=== PATIENT | female | born 1945 | race Caucasian/White ===

== ENCOUNTER 2016-06-21 14:29 | Observation (INO) | payer MEDICARE ==
[2016-06-21] MEDS ORDERED: ASPIRIN 81 MG CHEW PO STA (15:27)
[2016-06-21] MEDS ORDERED: NITROGLYCERIN OINT 1 INCH/GM PACKET TOPICAL STA (15:27)
--- NOTE | 2016-06-21 15:48 | ED ---
Chest Pain HPI - General Chief Complaint: Chest Pain Stated Complaint: Chest Pain. Sent by Dr Thayer Seen by Provider: 06/21/16 15:16 Source: patient Mode of arrival: ambulatory - History of Present Illness Initial Comments: This 71-year-old white female says complaining of chest pain which she describes as a discomfort. It is in her left chest and has been present over the past several days.. She was seen by her family physician and received a nitroglycerin in the office and this improved her pain. It seems to be worse with exertion and better with rest. She denies any shortness of breath diaphoresis or palpitations. She denies any radiation of the pain. Her last stress test was around January 2016. She denies any history of previous myocardial infarction or heart catheterization. She relates that she has a history of atrial fibrillation but no other Cardiologic problems. It is nonpleuritic in nature. She denies any leg pain or swelling or history of DVT or PE. No other complaints or modifying factors. - Related Data Home Medications Medication Instructions Recorded Confirmed Albuterol Nebulized [Ventolin 1 dose INHALATION RT-QID PRN 09/30/13 06/21/16 Nebulized] Flecainide [Tambocor] 100 mg PO BID 09/30/13 06/21/16 Montelukast [Singulair] 10 mg PO DAILY 09/30/13 06/21/16 Rivaroxaban [Xarelto] 1 tab PO HS 09/30/13 06/21/16 levETIRAcetam [Keppra] 125 mg PO BID 09/30/13 06/21/16 ALPRAZolam [Xanax] 0.125 mg PO BID PRN 06/21/16 06/21/16 Albuterol Inhaler [Ventolin Hfa 1 - 2 puff INHALATION RT-Q6H PRN 06/21/16 Inhaler] Biotin 2.5 mg PO DAILY 06/21/16 06/21/16 Budesonide [Pulmicort] 0.25 mg INHALATION RT-BID PRN 06/21/16 06/21/16 Calcium Carbonate [Calcium] 600 mg PO DAILY 06/21/16 06/21/16 Carbidopa-Levodopa ER 25-100Mg 1 tab PO HS 06/21/16 06/21/16 [Sinemet ER 25-100] Fish Oil/Dha/Epa [Fish Oil 1,200 1 cap PO DAILY 06/21/16 06/21/16 mg Fish Oil] Fluticasone Nasal [place] [Flonase 1 spr EA NOSTRIL BID PRN 06/21/16 06/21/16 Nasal [place]] Levothyroxine Sodium [Synthroid] 100 mcg PO DAILY 06/21/16 06/21/16 Magnesium 200 mg PO DAILY 06/21/16 06/21/16 Multivitamins, Thera [Multivitamin] 1 tab PO DAILY 06/21/16 06/21/16 hydrOXYzine HCL [Atarax] 10 mg PO BID PRN 06/21/16 06/21/16 traMADol HCL [Ultram] 50 - 100 mg PO Q6H PRN 06/21/16 06/21/16 Allergies Allergy/AdvReac Type Severity Reaction Status Date / Time levofloxacin [From Levaquin] Allergy Confusion Verified 06/21/16 15:50 Review of Systems ROS Statement: Those systems with pertinent positive or pertinent negative responses have been documented in the HPI. ROS Other: All systems not noted in ROS Statement are negative. Past Medical History Past Medical History: Atrial Fibrillation, Asthma, COPD, Thyroid Disorder Additional Past Medical History / Comment(s): osteopenia, brain tumor which was removed History of Any Multi-Drug Resistant Organisms: None Reported Past Surgical History: Cardiac Ablation Additional Past Surgical History / Comment(s): Cardiac AblationX2, Brain tumor removal, cataract Past Anesthesia/Blood Transfusion Reactions: Unable to Obtain Past Psychological History: Anxiety Smoking Status: Never smoker Past Alcohol Use History: None Reported Past Drug Use History: None Reported - Past Family History Father Brother(s) Family Medical History: Blood Disorder, COPD General Exam - General Exam Comments Initial Comments: GENERAL: The patient is well nourished and well hydrated. VITAL SIGNS: Heart rate, blood pressure, respiratory rate reviewed as recorded in nurse's notes. EYES: Pupils are round and reactive. Extraocular movements are intact. No conjunctival / lid redness or swelling. ENT: No external evidence of injury, swelling, or ecchymosis. Airway is patent. Throat is clear. NECK: Nontender. No swelling or evidence of injury. No subcutaneous emphysema. Trachea is midline. No thyroid mass. HEART: Regular rate and rhythm. Good peripheral pulses. LUNGS/CHEST: Breath sounds clear and equal bilaterally. No rales, rhonchi, or wheezes. No ecchymosis, subcutaneous emphysema, or tenderness. ABDOMEN: Abdomen soft without tenderness. No palpable masses or organomegaly. No peritoneal signs. No abdominal wall swelling or ecchymosis. EXTREMITIES: No extremity tenderness. Normal muscle tone and function. No thoracolumbar tenderness. NEUROLOGIC: Sensation is grossly intact. Cranial nerve exam reveals face is symmetrical, tongue is midline, speech is clear. SKIN: No abrasions or ecchymosis is noted. No induration or masses noted. PSYCHIATRIC: Alert and oriented. Appropriate behavior and judgment. Course Vital Signs 06/21/16 06/21/16 14:44 17:14 Temperature 98 F Pulse Rate 71 59 L Respiratory 18 18 Rate Blood Pressure 134/71 125/68 O2 Sat by Pulse 99 99 Oximetry Chest Pain MDM - MDM The patient was seen and examined. All diagnostics were reviewed. The EKG shows a normal sinus rhythm with first-degree AV block. There is no acute ST-T wave changes noted. The AL interval is 220, QS duration is 98, and QTc interval is 428. The laboratory was fairly unremarkable. The chest x-ray showed signs of COPD and some upper lobe scarring which is somewhat worse as compared to 2014. She is in no distress on recheck. The possibility of acute coronary syndrome certainly is possible and it is felt as though she would benefit from admission. Case will be discussed with internal medicine in the near future. Disposition Clinical Impression: Chest pain, Unstable angina Disposition: ADMITTED IP TO THIS [facility] Condition: Fair Time of Disposition: 17:43 Decision Date: 06/21/16 Decision Time: 17:43
[2016-06-21 15:51] LABS: Basophils % (A) 1 %; CH 31.8; CHCM 33.1; Eosinophils # (A) 0.1 k/uL (0-0.7); Eosinophils % (A) 2 %; HCT 38.5 % (34.0-46.0); HDW 2.28; HGB 12.6 gm/dL (11.4-16.0); Luc # (Auto) 0.14; Luc % (Auto) 3; Lymphocytes # (A) 1.2 k/uL (1.0-4.8); Lymphocytes % (A) 25 %; MCH 31.7 pg (25.0-35.0); MCHC 32.8 g/dL (31.0-37.0); MCV 96.6 fL (80.0-100.0); Mean Platelet Volume 7.3; Monocytes # (A) 0.4 k/uL (0-1.0); Monocytes % (A) 9 %; Neutrophils # (A) 2.8 k/uL (1.3-7.7); Neutrophils % (A) 61 %; RBC 3.99 m/uL (3.80-5.40); RDW 14.3 % (11.5-15.5); WBC 4.7 k/uL (3.8-10.6); WBC (Perox) 4.84
[2016-06-21 16:03] LABS: ALT 23 U/L (9-52); AST 36 U/L (14-36); Alkaline Phosphatase 79 U/L (38-126); Anion Gap 9 mmol/L; Blood Urea Nitrogen 19 mg/dL (7-17); Calcium 8.9 mg/dL (8.4-10.2); Carbon Dioxide 27 mmol/L (22-30); Chloride 100 mmol/L (98-107); Glucose 77 mg/dL (74-99); Magnesium 1.8 mg/dL (1.6-2.3); Non-African American GFR(MDRD) >60 (>60 ml/min/1.73 sqM); Sodium 136 mmol/L (137-145); Total Bilirubin 0.8 mg/dL (0.2-1.3); Total Protein 6.4 g/dL (6.3-8.2)
[2016-06-21 16:07] LABS: INR 1.1 (<1.1); Partial Thromboplastin Time 28.6 sec (22.0-30.0); Prothrombin Time 11.4 sec (9.0-12.0)
[2016-06-21 16:10] LABS: Creatine Kinase 95 U/L (30-135)
--- NOTE | 2016-06-21 16:10 | XR ---
EXAMINATION TYPE: XR chest 2V DATE OF EXAM: 06/21/2016 4:04 PM COMPARISON: 09/30/2013 HISTORY: 71-year-old female with chest pain TECHNIQUE: PA and lateral views FINDINGS: Heart is normal size. Aorta and pulmonary vasculature within normal limits. There is hyperinflation w ith flattening of the hemidiaphragms and diffuse interstitial opacities. Biapical pleural-parenchymal scarring is present. Densities in the apices have increased from prior. Blunting of the costophrenic angles probably relates to pleural parenchymal scarring. IMPRESSION: COPD with increased upper lung densities probably increasing pleural parenchymal scarring compared to 2013; unlikely early infiltrates in the absence of any infectious signs/symptoms.
[2016-06-21 16:23] LABS: Troponin I <0.012 ng/mL (0.000-0.034)
[2016-06-21] MEDS ORDERED: NITROGLYCERIN SL TABS 0.4 MG TAB SUBLINGUAL PRN (17:48)
[2016-06-21] MEDS ORDERED: FLUTICASONE 50MCG/SPRAY NASAL 16GM EA NOSTRIL PRN (17:49)
[2016-06-21] MEDS ORDERED: BUDESONIDE 0.25 MG/2 ML NEBU INHALATION PRN (17:49)
[2016-06-21] MEDS ORDERED: traMADol 50 MG TAB PO PRN (17:49)
[2016-06-21] MEDS ORDERED: ALPRAZolam 0.25 MG TAB PO PRN (17:49)
[2016-06-21] MEDS ORDERED: hydrOXYzine HCL 10 MG TAB PO PRN (17:49)
[2016-06-21] MEDS ORDERED: ALBUTEROL INHALER 60 PUFF/8 GM INHALER INHALATION PRN (17:49)
[2016-06-21] MEDS: CARBIDOPA-LEVODOPA ER 25-100MG 1 EACH TABLET.ER PO SCH (20:51)
[2016-06-21] MEDS: FLECAINIDE 50 MG TAB PO SCH (20:51)
[2016-06-21] MEDS: levETIRAcetam 250 MG TAB PO SCH (20:52)
[2016-06-21] MEDS: RIVAROXABAN 10 MG TAB PO SCH (22:04)
[2016-06-21 22:42] LABS: Creatine Kinase 81 U/L (30-135)
[2016-06-21 22:55] LABS: Creatine Kinase MB 1.3 ng/mL (0.0-2.4); Troponin I <0.012 ng/mL (0.000-0.034)
[2016-06-22 02:16] VITALS: BMI 25.0
[2016-06-22] MEDS: NITROGLYCERIN OINT 1 INCH/GM PACKET TOPICAL SCH ×4 (02:51→20:04)
[2016-06-22 03:17] LABS: Cholesterol 160 mg/dL (<200); HDL Cholesterol 63 mg/dL (40-60); Triglycerides 41 mg/dL (<150)
[2016-06-22 03:23] LABS: Creatine Kinase 77 U/L (30-135)
[2016-06-22 03:36] LABS: Creatine Kinase MB 1.1 ng/mL (0.0-2.4); Troponin I <0.012 ng/mL (0.000-0.034)
[2016-06-22] MEDS: LEVOTHYROXINE 100 MCG TAB PO SCH (06:31)
[2016-06-22] MEDS: ALBUTEROL NEBULIZED 2.5 MG/3 ML INHALATION PRN ×2 (08:46→17:08)
[2016-06-22] MEDS ORDERED: BIOTIN 2.5 MG PO SCH (09:00)
[2016-06-22] MEDS ORDERED: NON-FORMULARY DRUG (Fish Oil/Dha/Epa [Fish Oil 1,200 Mg Fish Oil] 1 CAP) PO SCH (09:00)
[2016-06-22] MEDS: levETIRAcetam 250 MG TAB PO SCH ×2 (09:58→20:52)
[2016-06-22] MEDS: ASPIRIN 325 MG TAB PO SCH (09:58)
[2016-06-22] MEDS: MONTELUKAST 10 MG TAB PO SCH (09:58)
--- NOTE | 2016-06-22 10:34 | ECHOF ---
Referral Reason:cp MEASUREMENTS -------- HEIGHT: 172.7 cm WEIGHT: 74.8 kg BP: 131/63 RVIDd: 2.4 cm (< 3.3) IVSd: 1.1 cm (0.6 - 1.1) LVIDd: 3.9 cm (3.9 - 5.3) LVPWd: 1.1 cm (0.6 - 1.1) IVSs: 1.5 cm LVIDs: 2.8 cm LVPWs: 1.6 cm LA Diam: 3.4 cm (2.7 - 3.8) LAESV Index (A-L): 34.30 ml/m Ao Diam: 3.6 cm (2.0 - 3.7) AV Cusp: 2.2 cm (1.5 - 2.6) LA Diam: 3.2 cm (2.7 - 3.8) MV EXCURSION: 21.150 mm (> 18.000) MV EF SLOPE: 70 mm/s (70 - 150) EPSS: 0.4 cm MV E Jonh: 1.00 m/s MV DecT: 288 ms MV A John: 0.68 m/s MV E/A Ratio: 1.47 FINDINGS -------- Sinus rhythm. This was a technically good study. The left ventricular size is normal. Left ventricular wall thickness is normal. Overall left ventricular systolic function is normal with, an EF between 60 - 65 %. The right ventricle is normal in size and function. LA is moderately dilated 34-39 ml/m2 The right atrium is normal in size. The aortic valve is trileaflet and appears structurally normal. Normal appearing mitral valve. No mitral regurgitation. The tricuspid valve appears structurally normal. No regurgitation noted The pulmonic valve is normal. There is no pulmonic regurgitation present. The aortic root size is normal. Normal inferior vena cava with normal inspiratory collapse consistent with estimated right atrial pressure of 5 mmHg. The pericardium is normal. CONCLUSIONS -------- 1. Sinus rhythm. 2. Normal appearing mitral valve. 3. The tricuspid valve appears structurally normal. 4. The pulmonic valve is normal. 5. The aortic root size is normal. 6. Normal inferior vena cava with normal inspiratory collapse consistent with estimated right atrial pressure of 5 mmHg. 7. The pericardium is normal. 8. This was a technically good study. 9. The left ventricular size is normal. 10. Left ventricular wall thickness is normal. 11. Overall left ventricular systolic function is normal with, an EF between 60 - 65 %. 12. The right ventricle is normal in size and function. 13. LA is moderately dilated 34-39 ml/m2 14. The right atrium is normal in size. 15. The aortic valve is trileaflet and appears structurally normal. [employer] SUPERVISOR: Zoya Medellin RDCS
[2016-06-22 11:30] VITALS: RESP 16
[2016-06-22] MEDS ORDERED: MAGNESIUM OXIDE 250 MG TAB PO SCH (12:00)
[2016-06-22] MEDS ORDERED: CALCIUM CARBONATE 500 MG CHEWABLE PO SCH (12:00)
[2016-06-22] MEDS ORDERED: MULTIVITAMINS, THERA 1 EACH TAB PO SCH (12:00)
--- NOTE | 2016-06-22 12:04 | P.HPIM ---
History of Present Illness H&P Date: 06/22/16 Chief Complaint: Chest pain This 71-year-old white female presented complaining of chest pain which she describes as a discomfort. It is in her left chest and has been present over the past several days.. She was seen by her family physician and received a nitroglycerin in the office and this improved her pain. It seems to be worse with exertion and better with rest. She denies any shortness of breath diaphoresis or palpitations. She denies any radiation of the pain. Her last stress test was around January 2016. She denies any history of previous myocardial infarction or heart catheterization. She relates that she has a history of atrial fibrillation but no other Cardiologic problems. It is nonpleuritic in nature. She denies any leg pain or swelling or history of DVT or PE. No other complaints or modifying factors. Review of Systems Review of system: 14 points review of systems were obtained and were negative except to what were mentioned in the HPI. Past Medical History Past Medical History: Atrial Fibrillation, Asthma, COPD, Thyroid Disorder Additional Past Medical History / Comment(s): osteopenia, brain tumor which was removed History of Any Multi-Drug Resistant Organisms: None Reported Past Surgical History: Cardiac Ablation Additional Past Surgical History / Comment(s): Cardiac AblationX2, Brain tumor removal, cataract Past Anesthesia/Blood Transfusion Reactions: Unable to Obtain Past Psychological History: Anxiety Smoking Status: Never smoker Past Alcohol Use History: None Reported Past Drug Use History: None Reported - Past Family History Father Brother(s) Family Medical History: Blood Disorder, COPD Medications and Allergies Home Medications Medication Instructions Recorded Confirmed Type Albuterol Nebulized [Ventolin 1 dose INHALATION RT-QID PRN 09/30/13 06/21/16 History Nebulized] Flecainide [Tambocor] 100 mg PO BID 09/30/13 06/21/16 History Montelukast [Singulair] 10 mg PO DAILY 09/30/13 06/21/16 History Rivaroxaban [Xarelto] 20 mg PO HS 09/30/13 06/21/16 History levETIRAcetam [Keppra] 125 mg PO BID 09/30/13 06/21/16 History ALPRAZolam [Xanax] 0.125 mg PO BID PRN 06/21/16 06/21/16 History Albuterol Inhaler [Ventolin Hfa 1 - 2 puff INHALATION RT-Q6H PRN 06/21/16 History Inhaler] Biotin 2.5 mg PO DAILY 06/21/16 06/21/16 History Budesonide [Pulmicort] 0.25 mg INHALATION RT-BID PRN 06/21/16 06/21/16 History Calcium Carbonate [Calcium] 600 mg PO DAILY 06/21/16 06/21/16 History Carbidopa-Levodopa ER 25-100Mg 1 tab PO HS 06/21/16 06/21/16 History [Sinemet ER 25-100] Fish Oil/Dha/Epa [Fish Oil 1,200 1 cap PO DAILY 06/21/16 06/21/16 History mg Fish Oil] Fluticasone Nasal [place] [Flonase 1 spr EA NOSTRIL BID PRN 06/21/16 06/21/16 History Nasal [place]] Levothyroxine Sodium [Synthroid] 100 mcg PO DAILY 06/21/16 06/21/16 History Magnesium 200 mg PO DAILY 06/21/16 06/21/16 History Multivitamins, Thera [Multivitamin] 1 tab PO DAILY 06/21/16 06/21/16 History hydrOXYzine HCL [Atarax] 10 mg PO BID PRN 06/21/16 06/21/16 History traMADol HCL [Ultram] 50 - 100 mg PO Q6H PRN 06/21/16 06/21/16 History Allergies Allergy/AdvReac Type Severity Reaction Status Date / Time levofloxacin [From [facility]] Allergy Confusion Verified 06/21/16 15:50 Physical Exam Vitals: Vital Signs Temp Pulse Pulse Resp BP BP Pulse Ox 06/22/16 11:29 97.9 F 63 16 109/46 96 06/22/16 09:00 64 06/22/16 08:48 64 14 06/22/16 07:42 98.1 F 63 16 116/49 96 06/22/16 04:15 98.1 F 64 16 131/63 98 06/22/16 04:00 59 L 16 06/22/16 00:01 98.0 F 61 16 134/63 98 06/22/16 00:00 60 16 06/21/16 21:30 97.7 F 88 16 127/60 96 06/21/16 20:48 98.4 F 60 18 109/60 100 06/21/16 19:30 70 16 06/21/16 19:06 60 18 125/66 99 Intake and Output 06/21/16 06/22/16 06/22/16 22:59 06:59 14:59 Other: # Voids 1 Weight 74.843 kg General: The patient is awake and alert, in no distress, and does not appear acutely ill. Eye: extra-ocular movements are intact; there is normal conjunctiva bilaterally. . Neck: The neck is supple, there is no tenderness or JVD. Cardiovascular: Normal S1-S2, no S3-S4, no murmurs. Respiratory: Lungs clear to auscultation bilaterally with no wheezes rhonchi or rales. Gastrointestinal: Abdomen is soft, nontender, nondistended, with no organomegaly. . Musculoskeletal: Normal ROM, no tenderness, There is no pedal edema. Neurological: There are no obvious motor or sensory deficits. Speech is normal. Skin: Skin is warm and dry and no rashes or lesions are noted. Results CBC & Chem 7: 06/21/16 15:20 06/21/16 15:20 Labs: Abnormal Lab Results - Last 24 Hours (Table) 06/22/16 Range/Units 02:34 HDL Cholesterol 63 H (40-60) mg/dL Thrombosis Risk Factor Assmnt - Choose All That Apply Each Risk Factor Represents 2 Points: Age 61-74 years Thrombosis Risk Factor Assessment Total Risk Factor Score: 2 Thrombosis Risk Factor Assessment Level: Low Risk Assessment and Plan Plan: 1. Chest pain: Most atypical in nature. Pain was reproducible on exam. Twelve -lead EKG showed no acute ischemic changes in the emergency room. Serial troponin are negative 3 sets. Awaiting cardiology evaluation and recommendations. 2. Paroxysmal atrial fibrillation with history of ablation. On anticoagulation with Rivaroxaban 3. Underlying COPD with no evidence of exacerbation 4. Hypothyroidism maintained on Synthroid 5. Seizure disorder: With no recent seizures reported We'll continue telemetry monitoring. Awaiting cardiology evaluation.
[2016-06-22] MEDS: FLECAINIDE 50 MG TAB PO SCH ×2 (12:44→20:52)
--- NOTE | 2016-06-22 13:46 | CONS ---
DATE OF CONSULTATION: Xochitl Nunez is a 71-year-old female who presented with discomfort in the left pectoral area. She is complaining of tenderness here. She denied any palpitations, dizziness, lightheadedness or loss of consciousness. Past history of atrial fibrillation, status post ablation. She is on flecainide 100 mg twice daily. She is should also appropriately anticoagulated. She also has COPD and hypothyroidism. REVIEW OF SYSTEMS: No fever, chills, rigors. No cough or expectoration. No nausea, vomiting or diarrhea. No hematuria or dysuria. No strokes or seizures. No skin lesions or musculoskeletal complaints. PAST SURGICAL HISTORY: Catheter ablation, brain tumor removal. Her medications have been documented in the chart. Allergies documented in the chart. On examination, her blood pressure is normal at 127/60 mmHg, pulse rate is in the 80s. Head and neck examination is normal. Heart sounds are normal. The lungs are clear to auscultation. Extremities are warm. No edema. She has tenderness over the costochondral margins. The costochondral margin is quite exquisite, the pain also gets worse when she takes a deep breath. She denies any fever, chills, cough or any pulmonary symptoms. IMPRESSION: 1. Musculoskeletal chest discomfort. 2. History of paroxysmal atrial fibrillation. 3. Hypothyroidism. SUGGEST: From a cardiac standpoint, she can go home. A 2-D echo shows preserved LV systolic function and it was normal in the past, too. I will see her in the office as scheduled.
[2016-06-22] MEDS ORDERED: ACETAMINOPHEN TAB 325 MG TAB PO PRN (17:32)
[2016-06-22] MEDS: RIVAROXABAN 10 MG TAB PO SCH ×2 (20:52→20:56)
[2016-06-23] MEDS: CARBIDOPA-LEVODOPA ER 25-100MG 1 EACH TABLET.ER PO SCH (01:29)
[2016-06-23] MEDS: NITROGLYCERIN OINT 1 INCH/GM PACKET TOPICAL SCH ×2 (01:30→06:34)
[2016-06-23] MEDS: ASPIRIN 325 MG TAB PO SCH (06:34)
[2016-06-23] MEDS: LEVOTHYROXINE 100 MCG TAB PO SCH (06:34)
[2016-06-23] MEDS: ALBUTEROL NEBULIZED 2.5 MG/3 ML INHALATION PRN (07:30)
[2016-06-23 07:40] LABS: Basophils % (A) 0 %; CH 31.8; Eosinophils # (A) 0.1 k/uL (0-0.7); Eosinophils % (A) 2 %; HCT 41.1 % (34.0-46.0); HDW 2.26; HGB 13.4 gm/dL (11.4-16.0); Luc # (Auto) 0.12; Luc % (Auto) 3; Lymphocytes # (A) 1.3 k/uL (1.0-4.8); Lymphocytes % (A) 26 %; MCH 31.7 pg (25.0-35.0); MCHC 32.8 g/dL (31.0-37.0); MCV 96.8 fL (80.0-100.0); Monocytes # (A) 0.4 k/uL (0-1.0); Monocytes % (A) 9 %; Neutrophils % (A) 60 %; RBC 4.24 m/uL (3.80-5.40); RDW 14.2 % (11.5-15.5); WBC 4.9 k/uL (3.8-10.6); WBC (Perox) 4.85
[2016-06-23 07:53] LABS: Anion Gap 8 mmol/L; Blood Urea Nitrogen 20 mg/dL (7-17); Calcium 9.1 mg/dL (8.4-10.2); Carbon Dioxide 30 mmol/L (22-30); Chloride 95 mmol/L (98-107); Glucose 76 mg/dL (74-99); Non-African American GFR(MDRD) 59 (>60 ml/min/1.73 sqM); Potassium 4.3 mmol/L (3.5-5.1); Sodium 133 mmol/L (137-145)
[2016-06-23] MEDS: levETIRAcetam 250 MG TAB PO SCH (08:26)
[2016-06-23] MEDS: MONTELUKAST 10 MG TAB PO SCH (08:26)
[2016-06-23] MEDS: FLECAINIDE 50 MG TAB PO SCH (08:26)
[2016-06-23 08:41] VITALS: BP 113/55; TEMP 98.1
[2016-06-23 08:52] VITALS: PULSE 69
--- NOTE | 2016-06-23 10:57 | P.DS ---
Providers Date of admission: 06/21/16 17:48 Expected date of discharge: 06/23/16 Attending physician: Yvonne Pascual Consults: Dr. Beltran Primary care physician: Zoila Bansal Hospital Course: Discharge diagnosis 1. Chest pain: Most atypical in nature. Pain was reproducible on exam. Twelve -lead EKG showed no acute ischemic changes in the emergency room. Serial troponin are negative 3 sets. DC ruled out. Chest pain secondary to costochondritis. Symptoms have improved 2. Paroxysmal atrial fibrillation with history of ablation. On anticoagulation with Rivaroxaban 3. Underlying COPD with no evidence of exacerbation 4. Hypothyroidism maintained on Synthroid 5. Seizure disorder: With no recent seizures reported Hospital course This 71-year-old white female presented complaining of chest pain which she describes as a discomfort. It is in her left chest and has been present over the past several days.. She was seen by her family physician and received a nitroglycerin in the office and this improved her pain. It seems to be worse with exertion and better with rest. She denies any shortness of breath diaphoresis or palpitations. She denies any radiation of the pain. Her last stress test was around January 2016. Patient was seen evaluated by cardiology. They felt that her chest pain was more musculoskeletal in nature. 2-D echo showed a preserved LV systolic function. They have cleared her for discharge. Patient will follow-up as scheduled with cardiology in the office. Also follow-up with PCP in 1 week. Patient's pain has resolved. And she's been educated to take Motrin [id number] if pain restarts. At this time patient did not want any pain medication. Patient Condition at Discharge: Stable Plan - Discharge Summary Discharge Medication List Albuterol Nebulized [Ventolin Nebulized] 1 dose INHALATION RT-QID PRN 09/30/13 [ History] Flecainide [Tambocor] 100 mg PO BID 09/30/13 [History] Montelukast [Singulair] 10 mg PO DAILY 09/30/13 [History] Rivaroxaban [Xarelto] 20 mg PO HS 09/30/13 [History] levETIRAcetam [Keppra] 125 mg PO BID 09/30/13 [History] ALPRAZolam [Xanax] 0.125 mg PO BID PRN 06/21/16 [History] Albuterol Inhaler [Ventolin Hfa Inhaler] 1 - 2 puff INHALATION RT-Q6H PRN [History] Biotin 2.5 mg PO DAILY 06/21/16 [History] Budesonide [Pulmicort] 0.25 mg INHALATION RT-BID PRN 06/21/16 [History] Calcium Carbonate [Calcium] 600 mg PO DAILY 06/21/16 [History] Carbidopa-Levodopa ER 25-100Mg [Sinemet CR 25-100 mg] 1 tab PO HS 06/21/16 [ History] Fish Oil/Dha/Epa [Fish Oil 1,200 mg Fish Oil] 1 cap PO DAILY 06/21/16 [History] Fluticasone Nasal [place] [Flonase Nasal [place]] 1 spr EA NOSTRIL BID PRN 06/21/16 [History] Levothyroxine Sodium [Synthroid] 100 mcg PO DAILY 06/21/16 [History] Magnesium 200 mg PO DAILY 06/21/16 [History] Multivitamins, Thera [Multivitamin] 1 tab PO DAILY 06/21/16 [History] hydrOXYzine HCL [Atarax] 10 mg PO BID PRN 06/21/16 [History] traMADol HCL [Ultram] 50 - 100 mg PO Q6H PRN 06/21/16 [History] Follow up Appointment(s)/Referral(s): Zoila Bansal MD [Primary Care Provider] - 1 Week Activity/Diet/Wound Care/Special Instructions: pt may go home an keep her scheduled appointment with me f/u with pcp as scheduled Diet:regular Activity: as tolerated Discharge Disposition: HOME SELF-CARE
== END 2016-06-23 11:52 | disposition home or self-care (01) ==
LOC: EC 14:29 → 3OBS 17:48
PROVIDERS: ADMIT Internal Medicine; ATTEND Internal Medicine
DX: M94.0 Chondrocostal junction syndrome [Tietze] (principal); I48.0 Paroxysmal atrial fibrillation; J44.9 Chronic obstructive pulmonary disease, unspecified; J45.909 Unspecified asthma, uncomplicated; E03.9 Hypothyroidism, unspecified; G40.909 Epilepsy, unspecified, not intractable, without status epilepticus; M85.80 Other specified disorders of bone density and structure, unspecified site; F41.9 Anxiety disorder, unspecified; Z79.01 Long term (current) use of anticoagulants; Z79.899 Other long term (current) drug therapy; Z88.1 Allergy status to other antibiotic agents; Z82.5 Family history of asthma and other chronic lower respiratory diseases
CPT/HCPCS: 36415; 94640 ×3; 94760; 93005; 93306; 80061; 80053; 80048; 82550 ×2; 82553 ×2; 83735; 84484 ×2; 85025 ×2; 85610; 85730; 71020; 99285; G0378 ×3

== ENCOUNTER → 2016-11-17 | Outpatient (CLI) | payer MEDICARE ==
[2016-11-17 08:13] LABS: Blood Urea Nitrogen 18 mg/dL (7-17); Non-African American GFR(MDRD) >60 (>60 ml/min/1.73 sqM)
--- NOTE | 2016-11-17 10:10 | MR ---
EXAMINATION TYPE: MR pituitary wo/w con DATE OF EXAM: 11/17/2016 COMPARISON: MRI pituitary gland 07/17/2014 HISTORY: Benign neoplasm of Pituitary gland, F/U from prior Pituitary tumor, No symptoms TECHNIQUE: Multiplanar, multisequence images of the brain and brainstem is performed without and with IV contras t, utilizing 15 mL intravenous MultiHance . Pituitary gland protocol FINDINGS: There is redemonstration of enhancing pituitary stalk extending to left of midline as it de scends. Heterogeneous enhancement at level of the sella turcica remains present. No new mass or areas of nonenhancement are identified. Suprasellar cistern is maintained. Optic chiasm is not effaced. Craniocervical junction appears within normal limits. Visualized portion of brain parenchyma is unrem arkable without hydrocephalus. No suspicious enhancement is seen. Visualized sinuses are grossly olga r. IMPRESSION: Overall stable findings, no new mass or area of nonenhancement identified.
== END | disposition home or self-care (01) ==
LOC: RADMRIMAIN 07:39
PROVIDERS: ATTEND Neurological Surgery
DX: D35.2 Benign neoplasm of pituitary gland (principal)
CPT/HCPCS: 82565; 84520; 70553; A9577

== ENCOUNTER 2017-01-23 03:29 | Observation (INO) | payer MEDICARE ==
--- NOTE | 2017-01-23 03:45 | ED ---
Chest Pain HPI - General Chief Complaint: Chest Pain Stated Complaint: chest pain Time Seen by Provider: 01/23/17 03:31 Source: EMS Mode of arrival: EMS Limitations: no limitations - History of Present Illness Initial Comments: This patient is a 71-year-old woman who presents to be evaluated for an episode of chest pain. She states that started around 8 while she was sitting. The pain was across the upper chest and left chest. She states that it lasts until about 1. She noted however that she was becoming very anxious and phone EMS. She states that it was a heavy or tight feeling. She did not note any worsening or relieving factors. She did have some shortness of breath and diaphoresis associated. She was having dry heaves as well. She states that all the symptoms have resolved now. MD Complaint: chest pain -: hour(s) Onset: during rest Pain Location: substernal, left chest Pain Radiation: none Severity: moderate Quality: tightness Consistency: now resolved Improves With: nothing Worsens With: nothing Anginal Symptoms: nausea, diaphoresis Treatments Prior to Arrival: none - Related Data Home Medications Medication Instructions Recorded Confirmed Albuterol Nebulized [Ventolin 1 dose INHALATION RT-QID PRN 09/30/13 06/21/16 Nebulized] Flecainide [Tambocor] 100 mg PO BID 09/30/13 06/21/16 Montelukast [Singulair] 10 mg PO DAILY 09/30/13 06/21/16 Rivaroxaban [Xarelto] 20 mg PO 09/30/13 06/21/16 levETIRAcetam [Keppra] 125 mg PO BID 09/30/13 06/21/16 ALPRAZolam [Xanax] 0.125 mg PO BID PRN 06/21/16 06/21/16 Albuterol Inhaler [Ventolin Hfa 1 - 2 puff INHALATION RT-Q6H PRN 06/21/16 Inhaler] Biotin 2.5 mg PO DAILY 06/21/16 06/21/16 Budesonide [Pulmicort] 0.25 mg INHALATION RT-BID PRN 06/21/16 06/21/16 Calcium Carbonate [Calcium] 600 mg PO DAILY 06/21/16 06/21/16 Carbidopa-Levodopa ER 25-100Mg 1 tab PO HS 06/21/16 06/21/16 [Sinemet CR 25-100 mg] Fish Oil/Dha/Epa [Fish Oil 1,200 1 cap PO DAILY 06/21/16 06/21/16 mg Fish Oil] Fluticasone Nasal [place] [Flonase 1 spr EA NOSTRIL BID PRN 06/21/16 06/21/16 Nasal [place]] Levothyroxine Sodium [Synthroid] 100 mcg PO DAILY 06/21/16 06/21/16 Magnesium 200 mg PO DAILY 06/21/16 06/21/16 Multivitamins, Thera [Multivitamin 1 tab PO DAILY 06/21/16 06/21/16 (formulary)] hydrOXYzine HCL [Atarax] 10 mg PO BID PRN 06/21/16 06/21/16 traMADol HCL [Ultram] 50 - 100 mg PO Q6H PRN 06/21/16 06/21/16 Allergies Allergy/AdvReac Type Severity Reaction Status Date / Time levofloxacin [From Levaquin] Allergy Confusion Verified 06/21/16 15:50 Review of Systems ROS Statement: Those systems with pertinent positive or pertinent negative responses have been documented in the HPI. ROS Other: All systems not noted in ROS Statement are negative. Constitutional: Denies: fever, chills Respiratory: Reports: dyspnea. Denies: cough, wheezes Cardiovascular: Reports: chest pain. Denies: palpitations, orthopnea, edema, syncope Gastrointestinal: Reports: nausea. Denies: abdominal pain, vomiting, diarrhea, constipation Genitourinary: Denies: dysuria, hematuria Musculoskeletal: Denies: back pain Skin: Denies: rash Neurological: Denies: headache, weakness, numbness Psychiatric: Reports: anxiety EKG Findings - EKG Results: EKG: interpreted by ERMD, sinus rhythm (Rate 69 bpm), normal axis, normal QRS, normal ST/T, no acute changes - Blocks, [place], Hypertrophy, ST Abn: AV and intraventricular conduction: 1 AV block Past Medical History Past Medical History: Atrial Fibrillation, Asthma, COPD, Thyroid Disorder Additional Past Medical History / Comment(s): osteopenia, brain tumor which was removed, hep A at age 15 History of Any Multi-Drug Resistant Organisms: None Reported Past Surgical History: Cardiac Ablation Additional Past Surgical History / Comment(s): Cardiac AblationX2, Brain tumor removal, cataract Past Anesthesia/Blood Transfusion Reactions: Unable to Obtain Past Psychological History: Anxiety Smoking Status: Never smoker Past Alcohol Use History: None Reported Past Drug Use History: None Reported - Past Family History Father Brother(s) Family Medical History: Blood Disorder, COPD General Exam Limitations: no limitations General appearance: alert, in no apparent distress Head exam: Present: atraumatic, normocephalic Eye exam: Present: normal appearance. Absent: scleral icterus, conjunctival injection Respiratory exam: Present: normal lung sounds bilaterally. Absent: respiratory distress, wheezes, rales, rhonchi, stridor Cardiovascular Exam: Present: regular rate, normal rhythm, normal heart sounds. Absent: systolic murmur, diastolic murmur, rubs, gallop GI/Abdominal exam: Present: soft. Absent: distended, tenderness, guarding, rebound Extremities exam: Present: normal inspection, normal capillary refill. Absent: pedal edema, calf tenderness Back exam: Present: normal inspection. Absent: CVA tenderness (R), CVA tenderness (L) Neurological exam: Present: alert Skin exam: Present: warm, dry, intact, normal color. Absent: rash Course Vital Signs 01/23/17 01/23/17 03:30 04:34 Temperature 98.4 F Pulse Rate 71 64 Respiratory 16 17 Rate Blood Pressure 149/69 136/62 O2 Sat by Pulse 99 100 Oximetry Chest Pain MDM - MDM This patient is 71-year-old woman presenting with chest pain, the initial workup is negative. D-dimer is borderline but negative by the age adjusted criteria. Case discussed with Dr. Ricketts, who is covering tonight and will admit for serial cardiac enzymes, telemetry monitoring. She remains asymptomatic Disposition Clinical Impression: Chest pain Disposition: ADMITTED IP TO THIS HOSP Condition: Fair Referrals: Zoila Bansal MD [Primary Care Provider] - 1-2 days
[2017-01-23 03:58] LABS: Aty Lym Flag Slight; CH 30.8; CHCM 33.6; HCT 35.1 % (34.0-46.0); HGB 11.8 gm/dL (11.4-16.0); MCHC 33.7 g/dL (31.0-37.0); Mean Platelet Volume 7.7; RBC 3.81 m/uL (3.80-5.40); RDW 13.7 % (11.5-15.5); WBC 5.1 k/uL (3.8-10.6); WBC (Perox) 5.07
[2017-01-23 04:10] LABS: ALT 23 U/L (9-52); AST 31 U/L (14-36); Alkaline Phosphatase 108 U/L (38-126); Anion Gap 9 mmol/L; Blood Urea Nitrogen 19 mg/dL (7-17); Calcium 8.8 mg/dL (8.4-10.2); Carbon Dioxide 25 mmol/L (22-30); Chloride 98 mmol/L (98-107); Glucose 84 mg/dL (74-99); Magnesium 1.9 mg/dL (1.6-2.3); Non-African American GFR(MDRD) >60 (>60 ml/min/1.73 sqM); Potassium 4.2 mmol/L (3.5-5.1); Sodium 132 mmol/L (137-145); Total Bilirubin 0.5 mg/dL (0.2-1.3); Total Protein 5.8 g/dL (6.3-8.2)
[2017-01-23 04:12] LABS: Add Differential Manual Differential
[2017-01-23 04:13] LABS: INR 1.5 (<1.2); Prothrombin Time 14.2 sec (9.0-12.0)
[2017-01-23 04:14] LABS: Creatine Kinase 98 U/L (30-135)
[2017-01-23 04:15] LABS: Band Neutrophils % 1 %; Nucleated Red Blood Cells 0 /100 WBC (0-0); Total Cells Counted 100
[2017-01-23 04:16] LABS: Manual Review Performed
--- NOTE | 2017-01-23 04:17 | XR ---
EXAM: XR Chest, 1 View CLINICAL HISTORY: Reason: chest pain TECHNIQUE: Frontal view of the chest. COMPARISON: 06/21/16 FINDINGS: Lungs: Coarse increased interstitial markings, unchanged likely chronic. No new dense consolidation. Pleural space: Biapical pleural thickening, unchanged. Blunting of the costophrenic angles, chronic No pneumothorax. Heart: Heart size is stable and within normal limits. Mediastinum: Unremarkable. Bones/joints: Unremarkable. Vasculature: Calcified thoracic aorta, unchanged. IMPRESSION: 1. Stable findings as described likely chronic. 2. No focal new consolidation. 3. Consider further evaluation with high-resolution chest CT as indicated
[2017-01-23 04:28] LABS: Creatine Kinase MB 1.9 ng/mL (0.0-2.4); Troponin I <0.012 ng/mL (0.000-0.034)
[2017-01-23] MEDS ORDERED: NITROGLYCERIN SL TABS 0.4 MG TAB SUBLINGUAL PRN (05:19)
[2017-01-23] MEDS ORDERED: ALPRAZolam 0.25 MG TAB PO PRN (05:21)
[2017-01-23] MEDS ORDERED: FLUTICASONE 50MCG/SPRAY NASAL 16GM EA NOSTRIL PRN (05:21)
[2017-01-23] MEDS ORDERED: hydrOXYzine HCL 10 MG TAB PO PRN (05:21)
[2017-01-23] MEDS ORDERED: ALBUTEROL INHALER 60 PUFF/8 GM INHALER INHALATION PRN (05:21)
[2017-01-23] MEDS: SODIUM CHLORIDE 0.9% 1,000 ML IV SCH (05:33)
[2017-01-23] MEDS: LEVOTHYROXINE 100 MCG TAB PO SCH (06:28)
[2017-01-23 06:56] VITALS: BMI 24.3
[2017-01-23 07:03] LABS: Creatine Kinase 81 U/L (30-135)
[2017-01-23 07:17] LABS: Creatine Kinase MB 1.9 ng/mL (0.0-2.4); Troponin I <0.012 ng/mL (0.000-0.034)
[2017-01-23] MEDS: BUDESONIDE 0.25 MG/2 ML NEBU INHALATION PRN ×2 (08:12→19:02)
[2017-01-23] MEDS: ALBUTEROL NEBULIZED 2.5 MG/3 ML INHALATION PRN ×2 (08:15→19:02)
[2017-01-23] MEDS ORDERED: levETIRAcetam 250 MG TAB PO SCH (09:00)
[2017-01-23] MEDS ORDERED: REGADENOSON 0.4 MG/5 ML SYRINGE IV ONE (09:07)
[2017-01-23] MEDS ORDERED: AMINOPHYLLINE 500 MG/20 ML VIAL IV PRN (09:07)
--- NOTE | 2017-01-23 10:13 | P.HPIM ---
History of Present Illness H&P Date: 01/23/17 Chief Complaint: Chest pain This is a 71-year-old female, patient of Dr. Bansal. 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 Patient presents to the emergency room with complaints of chest pain. She reports the pain was on the left side of her chest radiating up into the shoulder. Symptoms started around 9:00 at night. And continued and therefore she called EMS and was brought into the emergency room. The semi driver gave patient aspirin and nitro. Patient did have relief in her symptoms. She admits to having an episode of vomiting and diaphoresis. She denies any dizziness or lightheadedness. Denies any shortness of breath. Denies any bowel movement changes or urinary symptoms. Patient has been admitted to the observation unit. EKG shows normal sinus rhythm with first-degree AV block. Troponins are negative 2 sets. D-dimer was 0.60. Patient is on Xarelto at home for her atrial fibrillation. Cardiology has ordered a stress test for patient today. She is currently chest pain-free. Review of Systems Please refer to HPI otherwise unremarkable Past Medical History Past Medical History: Atrial Fibrillation, Asthma, COPD, Thyroid Disorder Additional Past Medical History / Comment(s): osteopenia, brain tumor which was removed, hep A at age 15, RLS, treated for seizures after brain tumor removed but no longer takes med History of Any Multi-Drug Resistant Organisms: None Reported Past Surgical History: Cardiac Ablation Additional Past Surgical History / Comment(s): Cardiac AblationX2, Brain tumor removal, cataract Past Anesthesia/Blood Transfusion Reactions: No Reported Reaction Past Psychological History: Anxiety Smoking Status: Never smoker Past Alcohol Use History: None Reported Past Drug Use History: None Reported - Past Family History Father Brother(s) Family Medical History: Blood Disorder, COPD Medications and Allergies Home Medications Medication Instructions Recorded Confirmed Type Montelukast [Singulair] 10 mg PO DAILY 09/30/13 01/23/17 History Rivaroxaban [Xarelto] 20 mg PO PC-SUPPER 09/30/13 01/23/17 History ALPRAZolam [Xanax] 0.125 mg PO BID PRN 06/21/16 01/23/17 History Albuterol Inhaler [Ventolin Hfa 1 - 2 puff INHALATION RT-Q6H PRN 06/21/16 History Inhaler] Carbidopa-Levodopa ER 25-100Mg 1 tab PO HS 06/21/16 01/23/17 History [Sinemet CR 25-100 mg] Fish Oil/Dha/Epa [Fish Oil 1,200 1 cap PO DAILY 06/21/16 01/23/17 History mg Fish Oil] Fluticasone Nasal [place] [Flonase 1 spr EA NOSTRIL BID 06/21/16 01/23/17 History Nasal [place]] Levothyroxine Sodium [Synthroid] 100 mcg PO DAILY 06/21/16 01/23/17 History Multivitamins, Thera [Multivitamin 1 tab PO DAILY 06/21/16 01/23/17 History (formulary)] traMADol HCL [Ultram] 50 mg PO Q6H PRN 06/21/16 01/23/17 History Flecainide Acetate [Tambocor] 100 mg PO Q12HR 01/23/17 01/23/17 History Ipratropium-Albuterol Nebulize 3 ml INHALATION RT-QID PRN 01/23/17 01/23/17 History [Duoneb 0.5 mg-3 mg/3 ml Soln] Loratadine [Claritin] 10 mg PO DAILY 01/23/17 01/23/17 History Allergies Allergy/AdvReac Type Severity Reaction Status Date / Time levofloxacin [From Levaquin] AdvReac Confusion/n Verified 01/23/17 07:56 ausea Physical Exam Vitals: Vital Signs Temp Pulse Pulse Resp BP BP Pulse Ox 01/23/17 08:35 68 01/23/17 08:20 68 99 01/23/17 07:03 97.8 F 65 18 135/67 99 01/23/17 05:33 97.9 F 67 18 144/78 100 01/23/17 04:34 64 17 136/62 100 01/23/17 03:30 98.4 F 71 16 149/69 99 Intake and Output 01/22/17 01/23/17 01/23/17 22:59 06:59 14:59 Other: Voiding Method Toilet Weight 70.307 kg 71.6 kg Patient Weight 01/24/17 06:59 Weight 71.6 kg Head normocephalic Neck supple Lungs clear to auscultation bilaterally no wheezing or crackles Heart regular rate and rhythm S1-S2, no rub or gallop Abdomen is soft nontender nondistended positive bowel sounds no hepatosplenomegaly Extremities no edema Neuro alert and orientated to 3 Results CBC & Chem 7: 01/23/17 03:40 01/23/17 03:40 Labs: Abnormal Lab Results - Last 24 Hours (Table) 01/23/17 01/23/17 01/23/17 Range/Units 03:40 03:40 03:40 Monocytes # (Manual) 1.12 H (0-1.0) k/uL PT 14.2 H (9.0-12.0) sec INR 1.5 H (<1.2) APTT 40.0 H (22.0-30.0) sec D-Dimer 0.60 H (<0.60) mg/L FEU Sodium 132 L (137-145) mmol/L BUN 19 H (7-17) mg/dL Total Protein 5.8 L (6.3-8.2) g/dL Albumin 3.4 L (3.5-5.0) g/dL Thrombosis Risk Factor Assmnt - Choose All That Apply Each Risk Factor Represents 2 Points: Age 61-74 years Thrombosis Risk Factor Assessment Total Risk Factor Score: 2 Thrombosis Risk Factor Assessment Level: Low Risk Assessment and Plan Plan: 1. Chest pain: Cardiac workup in progress. Patient scheduled for stress test today. Cardiology following closely. Troponins negative 2 sets. EKG normal sinus rhythm with first-degree AV block. Chest x-ray showing no acute changes, chronic stable changes 2. History of atrial fibrillation with previous cardiac ablations. On Xarelto for anticoagulation 3. Generalized anxiety disorder: Continue with Xanax as needed 4. History of COPD stable no evidence of exacerbation continue nebulizers as needed 5. 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 Hypothyroidism continue with Synthroid Time with Patient: Greater than 30 (Greater than 50% of the total time spent in counseling and coordination of care.I performed an examination of the patient and discussed their management with the physician Spout Liner. I have reviewed the Physician Spout Liner's notes and agree with the documented findings and plan of care)
[2017-01-23] MEDS: ALPRAZolam 0.25 MG TAB PO PRN ×2 (10:14→20:05)
--- NOTE | 2017-01-23 11:16 | P.CRDCN ---
History of Present Illness Consult date: 01/23/17 History of present illness: This is a 71-year-old female. Past medical history significant for atrial fibrillation status with successful ablation, COPD, sick sinus syndrome, hypothyroidism and obstructive sleep apnea on CPAP. Patient denies any history of coronary artery disease or cardiac stenting, no hypertension, no diabetes. Patient presents with complaints of left sided chest pain that radiated up into her left neck. She states the pain started around 9pm and persisted until around midnight when she became acutely nauseaous and started dry heaving. The pain subsequently went away on its own. Was not related to movement and was not worse with inspiration. She denies associated shortness of breath, diaphoresis, palpitations or dizziness. D-dimer mildly elevated at 0.60, pt is on chronic anticoagulation with Xarelto. She is currently chest pain free and denies n/v. EKG done shows first degree AV block, rate in the 60s no T-wave abnormality. When compared with old EKG this appears consistent. Hgb 11.8, potassium 4.2, BUN 19, Cr 0.8, tropononis negative x2. Chest x-ray showed chronic coarse interstitial markings with no acute or new cardiopulmonary process. Most recent echo dated 06/22/16 indicates preserved left ventricular function with ejection fraction 60-65% and moderately dilated left atrium. Review of Systems REVIEW OF SYSTEMS: Patient denies any chest discomfort. No shortness of breath. No diaphoresis. Denies headache, dizziness, blurred vision, double vision. No dyspnea on exertion. Patient denies any stomach discomfort. No nausea, vomiting. No hematochezia. No hematemesis. Denies any black stools or blood in his stools. No syncope. No palpitations. No cough. No recent fever or chills. No muscle weakness or numbness. Past Medical History Past Medical History: Atrial Fibrillation, Asthma, COPD, Thyroid Disorder Additional Past Medical History / Comment(s): osteopenia, brain tumor which was removed, hep A at age 15, RLS, treated for seizures after brain tumor removed but no longer takes med History of Any Multi-Drug Resistant Organisms: None Reported Past Surgical History: Cardiac Ablation Additional Past Surgical History / Comment(s): Cardiac AblationX2, Brain tumor removal, cataract Past Anesthesia/Blood Transfusion Reactions: No Reported Reaction Past Psychological History: Anxiety Smoking Status: Never smoker Past Alcohol Use History: None Reported Past Drug Use History: None Reported - Past Family History Father Brother(s) Family Medical History: Blood Disorder, COPD Medications and Allergies Home Medications Medication Instructions Recorded Confirmed Type Montelukast [Singulair] 10 mg PO DAILY 09/30/13 01/23/17 History Rivaroxaban [Xarelto] 20 mg PO PC-SUPPER 09/30/13 01/23/17 History ALPRAZolam [Xanax] 0.125 mg PO BID PRN 06/21/16 01/23/17 History Albuterol Inhaler [Ventolin Hfa 1 - 2 puff INHALATION RT-Q6H PRN 06/21/16 History Inhaler] Carbidopa-Levodopa ER 25-100Mg 1 tab PO HS 06/21/16 01/23/17 History [Sinemet CR 25-100 mg] Fish Oil/Dha/Epa [Fish Oil 1,200 1 cap PO DAILY 06/21/16 01/23/17 History mg Fish Oil] Fluticasone Nasal Roby [Flonase 1 spr EA NOSTRIL BID 06/21/16 01/23/17 History Nasal Roby] Levothyroxine Sodium [Synthroid] 100 mcg PO DAILY 06/21/16 01/23/17 History Multivitamins, Thera [Multivitamin 1 tab PO DAILY 06/21/16 01/23/17 History (formulary)] traMADol HCL [Ultram] 50 mg PO Q6H PRN 06/21/16 01/23/17 History Flecainide Acetate [Tambocor] 100 mg PO Q12HR 01/23/17 01/23/17 History Ipratropium-Albuterol Nebulize 3 ml INHALATION RT-QID PRN 01/23/17 01/23/17 History [Duoneb 0.5 mg-3 mg/3 ml Soln] Loratadine [Claritin] 10 mg PO DAILY 01/23/17 01/23/17 History Allergies Allergy/AdvReac Type Severity Reaction Status Date / Time levofloxacin [From Levaquin] AdvReac Confusion/n Verified 01/23/17 07:56 ausea Physical Exam Vitals: Vital Signs Temp Pulse Pulse Resp BP BP Pulse Ox 01/23/17 08:35 68 01/23/17 08:20 68 99 01/23/17 07:03 97.8 F 65 18 135/67 99 01/23/17 05:33 97.9 F 67 18 144/78 100 01/23/17 04:34 64 17 136/62 100 01/23/17 03:30 98.4 F 71 16 149/69 99 Intake and Output 01/22/17 01/23/17 01/23/17 22:59 06:59 14:59 Other: Voiding Method Toilet Weight 70.307 kg 71.6 kg Patient Weight 01/24/17 06:59 Weight 71.6 kg GENERAL: This is a 71-year-old female in no apparent distress at the time of my examination. HEENT: Head is atraumatic, normocephalic. Pupils are equal, round. Sclerae anicteric. Conjunctivae are clear. Mucous membranes of the mouth are moist. Neck is supple. There is no jugular venous distention. No carotid bruit is heard. LUNGS: Clear to auscultation no wheezes, rales or rhonchi. No chest wall tenderness is noted on palpation or with deep breathing. Diminished air entry. HEART: Regular rate and rhythm without murmurs, rubs or gallops. S1 and S2 heard. ABDOMEN: Soft, nontender. Bowel sounds are heard. No organomegaly noted. EXTREMITIES: 2+ peripheral pulses with no evidence of peripheral edema and no calf tenderness noted. NEUROLOGIC: Patient is awake, alert and oriented x3. Results 01/23/17 03:40 01/23/17 03:40 Cardiac Enzymes 01/23/17 01/23/17 01/23/17 Range/Units 03:40 03:40 06:19 AST 31 (14-36) U/L CK-MB (CK-2) 1.9 1.9 (0.0-2.4) ng/mL Troponin I <0.012 <0.012 (0.000-0.034) ng/mL Coagulation 01/23/17 Range/Units 03:40 PT 14.2 H (9.0-12.0) sec APTT 40.0 H (22.0-30.0) sec CBC 01/23/17 Range/Units 03:40 WBC 5.1 (3.8-10.6) k/uL RBC 3.81 (3.80-5.40) m/uL Hgb 11.8 (11.4-16.0) gm/dL Hct 35.1 (34.0-46.0) % Plt Count 169 (150-450) k/uL Comprehensive Metabolic Panel 01/23/17 Range/Units 03:40 Sodium 132 L (137-145) mmol/L Potassium 4.2 (3.5-5.1) mmol/L Chloride 98 (98-107) mmol/L Carbon Dioxide 25 (22-30) mmol/L BUN 19 H (7-17) mg/dL Creatinine 0.80 (0.52-1.04) mg/dL Glucose 84 (74-99) mg/dL Calcium 8.8 (8.4-10.2) mg/dL AST 31 (14-36) U/L ALT 23 (9-52) U/L Alkaline Phosphatase 108 (38-126) U/L Total Protein 5.8 L (6.3-8.2) g/dL Albumin 3.4 L (3.5-5.0) g/dL Current Medications Generic Name Dose Route Start Last Admin Trade Name Freq PRN Reason Stop Dose Admin Albuterol Sulfate 2.5 mg 01/23/17 05:21 01/23/17 08:15 Ventolin Nebulized INHALATION 2.5 mg RT-QID PRN Administration Shortness Of Breath Alprazolam 0.25 mg 01/23/17 10:10 01/23/17 10:14 Xanax PO 0.25 mg BID PRN Administration Anxiety Aminophylline 100 mg 01/23/17 09:07 Aminophylline IV 01/24/17 09:08 ONCE PRN Patient Response Aspirin 325 mg 01/24/17 09:00 Aspirin PO DAILY [place] Budesonide 0.25 mg 01/23/17 05:21 01/23/17 08:12 Pulmicort INHALATION 0.25 mg RT-BID PRN Administration Calcium Carbonate/Glycine 500 mg 01/23/17 09:00 Tums PO DAILY [place] Carbidopa/Levodopa 1 each 01/23/17 21:00 Sinemet Er 25-100 PO HS [place] Flecainide Acetate 100 mg 01/23/17 09:00 Tambocor PO BID [place] Fluticasone Propionate 1 spray 01/23/17 05:21 Flonase Nasal Roby EA NOSTRIL BID PRN Allergy Symptoms Hydroxyzine HCl 10 mg 01/23/17 05:21 Atarax PO BID PRN [facility] Anxiety Sodium Chloride 1,000 mls @ 20 mls/hr 01/23/17 05:30 01/23/17 05:33 Saline 0.9% IV 20 mls/hr .Q24H [place] Administration Levetiracetam 125 mg 01/23/17 09:00 Keppra PO BID [place] Levothyroxine Sodium 100 mcg 01/23/17 06:30 01/23/17 06:28 Synthroid PO Not Given 0630 [place] Magnesium Oxide 400 mg 01/23/17 09:00 Mag-Ox PO DAILY [place] Montelukast Sodium 10 mg 01/23/17 09:00 Singulair PO DAILY [facility] Multivitamins 1 each 01/23/17 09:00 Theragran PO DAILY [place] Nitroglycerin 0.4 mg 01/23/17 05:19 Nitrostat SUBLINGUAL Q5M PRN Chest Pain Rivaroxaban 20 mg 01/23/17 21:00 Xarelto PO HS [place] Tramadol HCl 50 mg 01/23/17 05:21 Ultram PO Q6H PRN Pain Intake and Output 01/22/17 01/23/17 01/23/17 22:59 06:59 14:59 Other: Voiding Method Toilet Weight 70.307 kg 71.6 kg Patient Weight 01/24/17 06:59 Weight 71.6 kg 01/23/17 03:40 01/23/17 03:40 EKG Interpretations (text) EKG indicates a normal sinus mechanism with a first-degree AV block. Assessment and Plan Plan: ASSESSMENT 1. Chest pain, no history of CAD 2. Atrial fibrillation on long-term anticoagulation with Xarelto, successful ablation since 2013 PLAN Obtain Lexiscan to rule out acute coronary event. If this testing is normal she can be discharged home from a cardiac standpoint. She can follow up with Dr. Beltran in 2 weeks. Nurse Practitioner note has been reviewed, I agree with a documented findings and plan of care. Patient was seen and examined.
[2017-01-23] MEDS: MAGNESIUM OXIDE 400 MG TAB PO SCH (12:59)
[2017-01-23] MEDS: CALCIUM CARBONATE 500 MG CHEWABLE PO SCH (12:59)
[2017-01-23] MEDS: MULTIVITAMINS, THERA 1 EACH TAB PO SCH (12:59)
[2017-01-23] MEDS: MONTELUKAST 10 MG TAB PO SCH (12:59)
[2017-01-23] MEDS: FLECAINIDE 50 MG TAB PO SCH ×2 (12:59→20:04)
[2017-01-23] MEDS: traMADol 50 MG TAB PO PRN (13:05)
--- NOTE | 2017-01-23 13:12 | NM ---
EXAMINATION TYPE: NM stress lexiscan cardiolite DATE OF EXAM: 01/23/2017 COMPARISON: NONE HISTORY: Chest pain with family history, angina, and numbness. History of COPD. TECHNIQUE: After the intravenous administration of 11 mCi Tc 99m Sestamibi - Cardiolite resting SPEC T images acquired 40 minutes post injection. The patient received 0.4mg Lexiscan, 27.5 mCi Tc 99m Sestamibi - Stress images obtained [address] injection FINDINGS: Review of stress and rest SPECT images demonstrates moderate reversible defect involving the apical l ateral wall (apical lateral segment, mid inferior lateral segment, basal inferior lateral segment, an terior apical segment, and apical inferior segment) predominantly in the distribution of the circumfl ex artery. Gated analysis shows dyskinetic wall motion with an estimated left ventricular ejection fr action of 67 %. TID is not elevated at 0.96. IMPRESSION: 1. Moderate reversible defect involving the apical lateral wall in the distribution of the left circu mflex coronary artery indicative of ischemia. 2. Estimated left ventricular ejection fraction of 67%.
[2017-01-23] MEDS ORDERED: SODIUM CHLORIDE 0.9% 1,000 ML in EMPTY BAG 1 BAG IV ONE (14:25)
--- NOTE | 2017-01-23 14:31 | P.PN ---
Progress Note - Text Lexican shows moderate reversible defect involving the apical lateral wall in the distribution of the left circumflex artery indicative of ischemia. Pt has been updated on results and advised to move forward with a cardiac catheterization to further evaluate. I have discussed the risks, benefits and alternative therapies for the above-mentioned procedure and for both sedation/ analgesia as well as necessary blood product administration, if indicated, as they pertain to this patient. The patient has indicated understanding and acceptance of the risks and procedures discussed. Questions have been answered appropriately and the patient has agreed to have the procedure. This has been scheduled tomorrow at 0900. Nurse Practitioner note has been reviewed, I agree with a documented findings and plan of care.
[2017-01-23 15:41] LABS: Creatine Kinase 77 U/L (30-135)
[2017-01-23 15:53] LABS: Creatine Kinase MB 1.5 ng/mL (0.0-2.4); Troponin I <0.012 ng/mL (0.000-0.034)
--- NOTE | 2017-01-23 17:51 | EST ---
DATE OF SERVICE: 01/23/17 TYPE OF REPORT: Lexiscan stress test INDICATIONS: Chest pain BASELINE HEART RATE: 66 BASELINE BLOOD PRESSURE: 117/61 MAXIMUM HEART RATE: 89 MAXIMUM BLOOD PRESSURE: 134/59 85% MPHR 127 100% MPHR 149 Mrs. Nunez is a 71 -year-old female who was admitted to the hospital with complaints of chest pain and shortness of breath. Baseline EKG revealed a normal sinus rhythm with normal AK interval and QRS duration. A standard dose of Lexiscan was infused. EKGs taken during the Lexiscan infusion showed mild about half millimeter to ST depression in the inferolateral leads. The patient also had frequent PVCs. FINAL IMPRESSION: 1. Borderline positive Lexiscan stress test. 2. The patient had occasional PVCs. 3. Nuclear reports to be given by the radiologist. ANN
[2017-01-23] MEDS ORDERED: ATORVASTATIN 80 MG TAB PO ONE (21:00)
[2017-01-23] MEDS ORDERED: CARBIDOPA-LEVODOPA ER 25-100MG 1 EACH TABLET.ER PO SCH (21:00)
[2017-01-23] MEDS ORDERED: RIVAROXABAN 10 MG TAB PO SCH (21:00)
[2017-01-24 03:04] LABS: Cholesterol 138 mg/dL (<200); HDL Cholesterol 47 mg/dL (40-60)
[2017-01-24] MEDS: LEVOTHYROXINE 100 MCG TAB PO SCH (06:22)
[2017-01-24] MEDS: traMADol 50 MG TAB PO PRN ×3 (06:36→12:33)
[2017-01-24] MEDS: BUDESONIDE 0.25 MG/2 ML NEBU INHALATION PRN (07:16)
[2017-01-24] MEDS: ALBUTEROL NEBULIZED 2.5 MG/3 ML INHALATION PRN ×2 (07:16→12:14)
[2017-01-24] MEDS: SODIUM CHLORIDE 0.9% 1,000 ML IV SCH (07:27)
[2017-01-24] MEDS: FLECAINIDE 50 MG TAB PO SCH (07:28)
[2017-01-24] MEDS: ALPRAZolam 0.25 MG TAB PO PRN ×2 (07:29→14:36)
[2017-01-24] MEDS ORDERED: IV FLUID CONTINUATION 1,000 ML IV ONE (08:56)
[2017-01-24] MEDS ORDERED: ASPIRIN 325 MG TAB PO SCH (09:00)
[2017-01-24] MEDS ORDERED: MIDAZOLAM 2 MG/2 ML VIAL IV ONE (09:15)
[2017-01-24] MEDS ORDERED: fentaNYL (PF) 50 MCG/ML 2 ML AMP IV ONE (09:15)
[2017-01-24] MEDS ORDERED: LIDOCAINE 2% INJ 20 MG/ML SQ ONE (09:19)
[2017-01-24] MEDS ORDERED: RX INFO: IV CONTRAST WAS GIVEN 1 EACH MISC MISCELLANE PRN (09:36)
[2017-01-24] MEDS ORDERED: IOHEXOL 350 MG/ML 125ML BOTTLE INJ ONE (09:43)
--- NOTE | 2017-01-24 09:43 | P.PCN ---
Date of Procedure: 01/24/17 Preoperative Diagnosis: Chest pain and a positive stress test Postoperative Diagnosis: Normal coronary arteries Procedure(s) Performed: Left heart catheterization without left ventriculography Implants: Indications for Procedure: Operative Findings: Description of Procedure: HISTORY: This is a 71-year-old female who was admitted to the hospital with recurrent chest pains 2 recently. Patient had a nuclear stress test which was reported as showing ischemia in the left circumflex distribution. Patient is advised to have a cardiac catheterization for definitive diagnosis. CONSENT:I have discussed the risks, benefits and alternative therapies for the above-mentioned procedure and for both sedation/analgesia as well as necessary blood product administration, if indicated, as they pertain to this patient. The patient has indicated understanding and acceptance of the risks and procedures discussed. PROCEDURE: Patient was brought to the lab in a fasting state. Patient was given some IV sedation. The right groin is infiltrated with lidocaine and right femoral artery was entered using Seldinger technique. A 6-Slovenian catheter was left in place and selective coronary arteriography was performed. Patient tolerated the procedure well. Femoral angiogram was performed and Angio -Seal was applied for hemostasis. No immediate complications were noted and patient was transferred to [facility] in a stable condition Conscious Sedation: Versed 1 mg Fentanyl 25 g Duration 10 minutes HEMODYNAMICS: Aortic pressure is 130/63. Left ventricular end-diastolic pressure is about 8-10. There was no gradient across the aortic valve SELECTIVE CORONARY ARTERIOGRAPHY: LEFT MAIN: Normal length and patent THE LEFT ANTERIOR DESCENDING CORONARY ARTERY: . Good caliber was and free of any occlusive disease THE LEFT CIRCUMFLEX AND IS CORONARY ARTERY: Good Caliber vessel free of occlusive disease THE RIGHT CORONARY ARTERY: . Good caliber vessel free of occlusive disease LEFT VENTRICULOGRAPHY: Not Performed FINAL IMPRESSION: Normal Coronary arteries and normal end-diastolic pressure PLAN: Maximal medical therapy and risk factor modification. Follow up with Dr. Beltran PROGNOSIS: Good
[2017-01-24] MEDS ORDERED: SODIUM CHLORIDE 0.9% 1,000 ML IV SCH (09:45)
[2017-01-24] MEDS: CALCIUM CARBONATE 500 MG CHEWABLE PO SCH (12:35)
[2017-01-24] MEDS: MAGNESIUM OXIDE 400 MG TAB PO SCH (12:35)
[2017-01-24] MEDS: MONTELUKAST 10 MG TAB PO SCH (12:36)
[2017-01-24] MEDS: MULTIVITAMINS, THERA 1 EACH TAB PO SCH (12:36)
--- NOTE | 2017-01-24 14:18 | P.DS ---
Providers Date of admission: 01/23/17 05:19 Expected date of discharge: 01/24/17 Attending physician: Yvonne Pascual Consults: 01/23/17 05:19 Consult Physician Routine Consulting Provider: Antelmo Geiger Consult Reason/Comments: chest pain Do you want consulting provider notified?: Yes [facility] Course: This is a 71-year-old female with past medical history detailed in her electronic chart significant for atrial fibrillation with history of ablation, COPD, and hypothyroidism who presented to the emergency room with complaint of chest pain. Patient was evaluated in 12 leads EKG showed no acute ischemic changes. Serial troponin were negative 3 sets. Patient was placed on observation was seen and evaluated by cardiology. She underwent a left heart catheterization showing normal coronary arteries. Patient was cleared for discharge. She will follow-up with her primary care physician as directed. Please refer to the medication reconciliation form for discharge medication list. Patient Condition at Discharge: Fair Plan - Discharge Summary New Discharge Prescriptions: Continue Montelukast [Singulair] 10 mg PO DAILY Rivaroxaban [Xarelto] 20 mg PO PC-SUPPER traMADol HCL [Ultram] 50 mg PO Q6H PRN PRN Reason: Pain Albuterol Inhaler [Ventolin Hfa Inhaler] 1 - 2 puff INHALATION RT-Q6H PRN PRN Reason: Shortness Of Breath ALPRAZolam [Xanax] 0.125 mg PO BID PRN PRN Reason: Anxiety Carbidopa-Levodopa ER 25-100Mg [Sinemet CR 25-100 mg] 1 tab PO HS Levothyroxine Sodium [Synthroid] 100 mcg PO DAILY Fluticasone Nasal [place] [Flonase Nasal [place]] 1 spr EA NOSTRIL BID Fish Oil/Dha/Epa [Fish Oil 1,200 mg Fish Oil] 1 cap PO DAILY Multivitamins, Thera [Multivitamin (formulary)] 1 tab PO DAILY Ipratropium-Albuterol Nebulize [Duoneb 0.5 mg-3 mg/3 ml Soln] 3 ml INHALATION RT-QID PRN PRN Reason: Shortness Of Breath Or Wheezing Flecainide Acetate [Tambocor] 100 mg PO Q12HR Discontinued Loratadine [Claritin] 10 mg PO DAILY Discharge Medication List Montelukast [Singulair] 10 mg PO DAILY 09/30/13 [History] Rivaroxaban [Xarelto] 20 mg PO PC-SUPPER 09/30/13 [History] ALPRAZolam [Xanax] 0.125 mg PO BID PRN 06/21/16 [History] Albuterol Inhaler [Ventolin Hfa Inhaler] 1 - 2 puff INHALATION RT-Q6H PRN [History] Carbidopa-Levodopa ER 25-100Mg [Sinemet CR 25-100 mg] 1 tab PO HS 06/21/16 [ History] Fish Oil/Dha/Epa [Fish Oil 1,200 mg Fish Oil] 1 cap PO DAILY 06/21/16 [History] Fluticasone Nasal [place] [Flonase Nasal [place]] 1 spr EA NOSTRIL BID 06/21/16 [ History] Levothyroxine Sodium [Synthroid] 100 mcg PO DAILY 06/21/16 [History] Multivitamins, Thera [Multivitamin (formulary)] 1 tab PO DAILY 06/21/16 [History ] traMADol HCL [Ultram] 50 mg PO Q6H PRN 06/21/16 [History] Flecainide Acetate [Tambocor] 100 mg PO Q12HR 01/23/17 [History] Ipratropium-Albuterol Nebulize [Duoneb 0.5 mg-3 mg/3 ml Soln] 3 ml INHALATION RT -QID PRN 01/23/17 [History] Follow up Appointment(s)/Referral(s): Agustin Beltran MD [STAFF PHYSICIAN] - 1 Week (Patient Already has an appointment on the . ) Zoila Bansal MD [Primary Care Provider] - 1-2 days Discharge Disposition: HOME SELF-CARE
[2017-01-24 15:59] VITALS: PULSE 63
[2017-01-24 16:59] VITALS: BP 133/54; RESP 16; TEMP 98.4
== END 2017-01-24 18:19 | disposition home or self-care (01) ==
LOC: EC 03:29 → 3OBS 05:19
PROVIDERS: ADMIT Internal Medicine; ATTEND Internal Medicine
DX: R07.89 Other chest pain (principal); R06.02 Shortness of breath; I44.0 Atrioventricular block, first degree; J44.9 Chronic obstructive pulmonary disease, unspecified; I48.91 Unspecified atrial fibrillation; M85.80 Other specified disorders of bone density and structure, unspecified site; E03.9 Hypothyroidism, unspecified; F41.1 Generalized anxiety disorder; G47.33 Obstructive sleep apnea (adult) (pediatric); Z86.011 Personal history of benign neoplasm of the brain; Z82.5 Family history of asthma and other chronic lower respiratory diseases; Z88.1 Allergy status to other antibiotic agents; Z79.51 Long term (current) use of inhaled steroids; Z79.01 Long term (current) use of anticoagulants; Z79.899 Other long term (current) drug therapy; Z99.89 Dependence on other enabling machines and devices
CPT/HCPCS: 99152; 96360; 96361 ×2; 99285; 36415; 94640 ×4; 94760 ×2; 93017; 93458; 85379; 84439; 80061; 80053; 84443; 82550; 82553; 83735; 84484; 85025; 85610; 85730; 71010; 78452; G0378 ×2; C1760; C1894; C1769; A9500; J2001; J2250; J3010; J2785; Q9967

== ENCOUNTER → 2018-12-25 | Outpatient (CLI) | payer MEDICARE ==
--- NOTE | 2018-12-25 13:46 | CT ---
EXAMINATION TYPE: CT brain wo con DATE OF EXAM: 12/25/2018 COMPARISON: 02/11/2013 HISTORY: new onset severe headache CT DLP: 813.3 mGycm Automated exposure control for dose reduction was used. FINDINGS: There is evidence of previous surgery involving the left frontal bone with encephalomalacia involving the left frontal lobe stable from the prior exam. Cerebellar tonsils low-lying in position but stable in appearance. Intracranial atherosclerotic changes are seen. No midline shift or mass effect. No acute hemorrhage. Faint low-attenuation the white matter is nonspecific but most typical remote microvascular ischemia. IMPRESSION: POSTSURGICAL CHANGES WITH NO ACUTE HEMORRHAGE OR MASS EFFECT.
== END | disposition home or self-care (01) ==
LOC: RADCTMAIN 13:15
PROVIDERS: ATTEND Family Medicine
DX: R41.82 Altered mental status, unspecified (principal); G44.89 Other headache syndrome; Z98.890 Other specified postprocedural states
CPT/HCPCS: 70450

== ENCOUNTER → 2019-07-03 | Outpatient (CLI) | payer MEDICARE ==
--- NOTE | 2019-07-03 15:23 | CT ---
EXAMINATION TYPE: CT chest wo con DATE OF EXAM: 07/03/2019 COMPARISON: 06/17/2009 HISTORY: Pleural effusion, sleep apnea, asthma, and a-fib. CT DLP: 189.[address] of the chest was performed with lung and mediastinal window settings submitted. The la ck of contrast limits evaluation of the vascular, mediastinal and parenchymal structures including th e upper abdomen. LUNGS: Calcified pleural plaques are redemonstrated compatible with asbestos related pleural disease. There is been resolution of previously noted pleural effusions. There is persistent basilar pleural thickening right greater than left. Left upper lobe nodular density with adjacent pleural thickening measures 1.2 cm versus 1.1 cm previously. 3 mm right upper lobe pulmonary nodule image 22. Biapical p arenchymal scarring unchanged. MEDIASTINUM/PRATEEK: Thoracic aorta is of normal caliber with limited evaluation given lack of contrast . The heart is not enlarged. No evidence for mediastinal mass. No lymph nodes greater than 1cm. C alcified hilar mediastinal lymph nodes identified. UPPER ABDOMEN: No significant abnormality is seen. OTHER: No significant other abnormality. IMPRESSION: 1. Resolution of previously noted pleural effusions with pleural thickening noted right greater than left at the lung bases. 2. Scattered calcified pleural plaques compatible with asbestos related pleural disease. 3. Stable line nodularity is likely chronic in nature given 10 year time frame.
== END | disposition home or self-care (01) ==
LOC: RADCTMAIN 13:13
PROVIDERS: ATTEND Internal Medicine Pulmonary Disease
DX: J45.50 Severe persistent asthma, uncomplicated (principal); M19.90 Unspecified osteoarthritis, unspecified site; J90 Pleural effusion, not elsewhere classified; I48.91 Unspecified atrial fibrillation; G47.33 Obstructive sleep apnea (adult) (pediatric)
CPT/HCPCS: 71250

== ENCOUNTER 2020-08-17 08:28 | Emergency (ER) | payer MEDICARE ==
[2020-08-17 08:34] VITALS: TEMP 98.4
--- NOTE | 2020-08-17 09:06 | ED ---
General Adult HPI - General Chief complaint: Extremity Problem,Nontraumatic Stated complaint: PAIN IN R LEG Time Seen by Provider: 08/17/20 08:54 Source: patient Mode of arrival: ambulatory Limitations: no limitations - History of Present Illness Initial comments: 75-year-old female patient presents to the emergency department today for evaluation of right leg discomfort. Patient states that she had some discomfort through the night and was unable to sleep. States when she woke up she felt like her right leg was swollen. States it did not appear swollen. Denies any known injury. She is concerned she may have a blood clot. Denies history of blood clots. She does have history of a chill fibrillation and does take Xarelto. States the pain is improved at this time. She does have a history of low back pain, denies significant pain at this time. She denies numbness or tingling to his lower extremity. Patient denies any recent rash, fever, chills, cough, shortness of breath, chest pain, abdominal pain, nausea, vomiting, diarrhea, constipation, back pain, hematuria, dysuria, urinary urgency, urinary frequency, headache, visual changes, or any other complaints. - Related Data Home Medications Medication Instructions Recorded Confirmed Montelukast [Singulair] 10 mg PO DAILY 09/30/13 01/23/17 Rivaroxaban [Xarelto] 20 mg PO PC-SUPPER 09/30/13 01/23/17 ALPRAZolam [Xanax] 0.125 mg PO BID PRN 06/21/16 01/23/17 Albuterol Inhaler (Mhu) [Ventolin 1 - 2 puff INHALATION RT-Q6H PRN 06/21/16 01/23/17 Hfa Inhaler (Mhu)] Carbidopa-Levodopa ER 25-100Mg 1 tab PO HS 06/21/16 01/23/17 [Sinemet CR 25-100 mg] Fish Oil/Dha/Epa [Fish Oil 1,200 1 cap PO DAILY 06/21/16 01/23/17 mg Fish Oil] Fluticasone Nasal [place] [Flonase 1 spr EA NOSTRIL BID 06/21/16 01/23/17 Nasal [place]] Levothyroxine Sodium [Synthroid] 100 mcg PO DAILY 06/21/16 01/23/17 Multivitamins, Thera [Multivitamin 1 tab PO DAILY 06/21/16 01/23/17 (formulary)] traMADol HCL [Ultram] 50 mg PO Q6H PRN 06/21/16 01/23/17 Flecainide Acetate [Tambocor] 100 mg PO Q12HR 01/23/17 01/23/17 Ipratropium-Albuterol Nebulize 3 ml INHALATION RT-QID PRN 01/23/17 01/23/17 [Duoneb 0.5 mg-3 mg/3 ml Soln] Allergies Allergy/AdvReac Type Severity Reaction Status Date / Time levofloxacin [From Levaquin] AdvReac Confusion/n Verified 08/17/20 08:34 ausea Review of Systems ROS Statement: Those systems with pertinent positive or pertinent negative responses have been documented in the HPI. ROS Other: All systems not noted in ROS Statement are negative. Past Medical History Past Medical History: Atrial Fibrillation, Asthma, COPD, Thyroid Disorder Additional Past Medical History / Comment(s): osteopenia, brain tumor which was removed, hep A at age 15, RLS, treated for seizures after brain tumor removed but no longer takes med History of Any Multi-Drug Resistant Organisms: ESBL Date of last positivie culture/infection: 08/17/18 MDRO Source:: ESBL URINE Past Surgical History: Cardiac Ablation Additional Past Surgical History / Comment(s): Cardiac AblationX2, Brain tumor removal, cataract Past Anesthesia/Blood Transfusion Reactions: No Reported Reaction Past Psychological History: Anxiety Smoking Status: Never smoker Past Alcohol Use History: None Reported Past Drug Use History: None Reported - Past Family History Father Brother(s) Family Medical History: Blood Disorder, COPD General Exam Limitations: no limitations General appearance: alert, in no apparent distress, other (Physical well- developed, well-nourished adult female patient in no acute distress. Vital signs upon presentation are temperature 98.4F, pulse 80, respirations 20, blood pressure 139/72, pulse ox 99% on room air.) Eye exam: Present: normal appearance, PERRL, EOMI. Absent: scleral icterus, conjunctival injection, periorbital swelling ENT exam: Present: normal exam, normal oropharynx, mucous membranes moist Respiratory exam: Present: normal lung sounds bilaterally. Absent: respiratory distress, wheezes, rales, rhonchi, stridor Cardiovascular Exam: Present: regular rate, normal rhythm, normal heart sounds. Absent: systolic murmur, diastolic murmur, rubs, gallop, clicks GI/Abdominal exam: Present: soft, normal bowel sounds. Absent: distended, tenderness, guarding, rebound, rigid Extremities exam: Present: normal inspection, full ROM, normal capillary refill, other (Pedal and posttibial pulses are 2+ and equal bilaterally.). Absent: tenderness, pedal edema, joint swelling, calf tenderness Back exam: Present: normal inspection. Absent: vertebral tenderness Neurological exam: Present: alert, oriented X3, CN II-XII intact Psychiatric exam: Present: normal affect, normal mood Skin exam: Present: warm, dry, intact, normal color. Absent: rash Course Vital Signs 08/17/20 08:31 Temperature 98.4 F Pulse Rate 80 Respiratory 20 Rate Blood Pressure 139/72 O2 Sat by Pulse 99 Oximetry Medical Decision Making - Medical Decision Making 75-year-old female patient presents to the emergency department today for evaluation of right leg discomfort. Patient states when she woke up she felt like her leg was swollen twice the size of the right but didn't notice any obvious swelling visually. She is not currently having any pain or discomfort but is very concerned she may have a blood clot. Physical examination is unremarkable. She is neurovascularly intact. She has no tenderness over the groin or abdomen. No back tenderness. Vital signs are unremarkable. Ultrasound of the right leg was negative for DVT. I did discuss findings and results with her. She be discharged to follow-up with her primary care physician for recheck in 1-2 days. Return parameters were discussed in detail. She verbalizes understanding and agrees with this plan. Case discussed with my attending Dr. Tom. - Radiology Data Radiology results: report reviewed Ultrasound of the right lower extremity was obtained. Report was reviewed in its entirety. Impression by Dr. Glez shows right lower extremity ultrasound negative for DVT. Disposition Clinical Impression: Right leg pain Disposition: HOME SELF-CARE Condition: Good Instructions (If sedation given, give patient instructions): Leg Pain (ED) Additional Instructions: Follow-up with her primary care physician for recheck in 1-2 days. Return to the emergency department for any new, worsening, or concerning symptoms. Is patient prescribed a controlled substance at d/c from ED?: No Referrals: Zoila Bansal MD [Primary Care Provider] - 1-2 days Time of Disposition: 10:09
--- NOTE | 2020-08-17 09:57 | US ---
EXAMINATION TYPE: US venous doppler duplex LE RT DATE OF EXAM: 08/17/2020 9:27 AM COMPARISON: NONE CLINICAL HISTORY: Right leg pain. EC patient with pulsation of right leg noted with history of sciati ca nerve pain right. SIDE PERFORMED: Right TECHNIQUE: The lower extremity deep venous system is examined utilizing real time linear array sonog louie with graded compression, doppler sonography and color-flow sonography. VESSELS IMAGED: Common Femoral Vein Deep Femoral Vein Greater Saphenous Vein * Femoral Vein Popliteal Vein Small Saphenous Vein * Proximal Calf Veins (* superficial vessels) Right Leg: Negative for DVT IMPRESSION: 1. Right lower extremity ultrasound negative for deep venous thrombosis.
[2020-08-17 10:38] VITALS: BP 133/95; PULSE 75; RESP 18
== END 2020-08-17 10:38 | disposition home or self-care (01) ==
LOC: EC 08:28
DX: M79.604 Pain in right leg (principal); R22.41 Localized swelling, mass and lump, right lower limb; F41.9 Anxiety disorder, unspecified; J44.9 Chronic obstructive pulmonary disease, unspecified; E07.9 Disorder of thyroid, unspecified; I48.91 Unspecified atrial fibrillation; Z79.01 Long term (current) use of anticoagulants; Z79.899 Other long term (current) drug therapy; Z79.890 Hormone replacement therapy; Z88.1 Allergy status to other antibiotic agents; Z98.49 Cataract extraction status, unspecified eye
CPT/HCPCS: 99283

== ENCOUNTER → 2020-09-30 | Outpatient (CLI) | payer MEDICARE ==
[2020-09-30 09:20] VITALS: BP 105/67; PULSE 72; RESP 18; TEMP 97.6
--- NOTE | 2020-09-30 09:40 | P.PAINCN ---
History of Present Illness - Reason for Consult Consult date: 09/30/20 - History of Present Illness This is a 75-year-old patient referred by Dr. Veliz with a chief complaint of chronic pain in low back. Has been getting injections from Dr Rosado for 3 years. Has a history of atrial fibrillation on Xarelto (has been able to stop this for procedures in the past). It is located in the low back with radiation to the bilateral buttocks and posterior lateral thighs with associated bilateral lower extremity weakness. Has been present for many years with no inciting incident. Occasionally radiates down the lower extremities only when the pain gets very bad. Her pain is worse on the left side today. Currently a 1 out of 10, at its worst 8 out of 10, at its best a 0/10. In regards to her management, she has taken tramadol 50 mg QID occasionally in the past, most recent fill was a 6 day prescription 38 quantity on 09/04/20. Currently on Ambien 10 mg QD, filled 09/04/20. She most recently had a caudal epidural on 08/2020 which helped but knows her pain will be back next month (apparently gave 100% relief). She has also had bilateral lumbar RFA most recently on 12/04/2019, at levels L3-4, 4-5, 5-S1.. According to notes this gave 100% relief, patient endorses this as well. Has had transforaminal at left S1 in 2014 with limited relief. Has done PT with good relief, is overall an active person. Essentially here to establish care. Patient also denies new-onset weakness, bowel/bladder incontinence, or any other signs or symptoms of cauda equina syndrome. There are no signs of acute intoxication, and no indications of medication diversion or overuse. In addition to above, 13-point review of systems is also negative for chest pain, shortness of breath, changes in vision, changes in hearing, new onset weakness, abdominal pain, diarrhea, extreme fatigue, malaise, fever, skin changes, homicidal or suicidal ideation, or bowel or bladder incontinence. Physical exam: Vital Signs: Reviewed in EMR GENERAL: Well appearing, in no acute distress PSYCH: Mood and affect is appropriate. Awake, alert, and oriented SKIN: Skin color, texture, turgor normal, no rashes or lesions HEENT: Normocephalic, atraumatic. EOM intact CV: No pedal edema RESP: Respirations are unlabored, no audible wheezing GI: Abdomen non-distended MUSCULOSKELETAL: No atrophy or tone abnormalities are noted. Lumbar spine: EHL 4/5 bilaterally, otherwise strength intact. There is pain to palpation over the lumbar spine and paraspinous muscles. Positive for pain with facet loading and back extension/rotation. Limited lumbar flexion Extremities: Peripheral joint ROM is full and pain free without obvious instability or laxity in all four extremities. No edema or skin discolorations noted. Gait: Gait is normal NEUR: Bilateral upper and lower extremity coordination and muscle stretch reflexes are physiologic and symmetric. Negative clonus. No loss of sensation is noted. Cranial nerves are grossly intact. Imaging: Most recent MRI in Dr Veliz notes is from 2017, severe disc space loss at L2- L3 with moderate canal stenosis at L4-L5. An EMG from 2017 which shows chronic lumbar spinal stenosis with bilateral S1 myotome involvement worse on the left, however there is no evidence to support any radiculopathy plexopathy or neuropathy. Assessment: 1. Lumbar spondylosis in the lumbosacral region 2. Lumbar spinal stenosis Plan: 1. Explanation: Diagnoses, prognoses, and multiple treatment options including but not limited to physical therapy, interventional therapies, medication management and surgery were discussed with the patient and all questions were answered to the patient's satisfaction. 2. Investigations: none, repeat MRI in the future if interventions are not helpful as it has been some time since she has had one (2017) 3. Counseling: None done today 4. Procedures: Will do L L3-4, L4-5, L5-S1 RFA followed by right side 5. Consultations: None 6. Medications: Continue tramadol as needed 7. Disposition: for above procedure I have spent 50 minutes on patient care today. The time was used to review the medical records including relevant urine studies and prescription history, review of the available imaging, evaluation and examination of the patient, coordination of care with medical staff and if applicable referring physicians, as well as creation of the medical record. Past Medical History Past Medical History: Atrial Fibrillation, Asthma, COPD, Thyroid Disorder Additional Past Medical History / Comment(s): osteopenia, brain tumor which was removed, hep A at age 15, RLS, treated for seizures after brain tumor removed but no longer takes med History of Any Multi-Drug Resistant Organisms: ESBL Year Discovered:: 08/17/18 MDRO Source:: ESBL URINE Past Surgical History: Cardiac Ablation Additional Past Surgical History / Comment(s): Cardiac AblationX2, Brain tumor removal, cataract Past Anesthesia/Blood Transfusion Reactions: No Reported Reaction Past Psychological History: Anxiety Smoking Status: Never smoker Past Alcohol Use History: None Reported Past Drug Use History: None Reported - Past Family History Father Brother(s) Family Medical History: Blood Disorder, COPD Medications and Allergies Home Medications Medication Instructions Recorded Confirmed Type Montelukast [Singulair] 10 mg PO DAILY 09/30/13 01/23/17 History Rivaroxaban [Xarelto] 20 mg PO PC-SUPPER 09/30/13 01/23/17 History ALPRAZolam [Xanax] 0.125 mg PO BID PRN 06/21/16 01/23/17 History Albuterol Inhaler (Mhu) [Ventolin 1 - 2 puff INHALATION RT-Q6H PRN 06/21/16 01/23/17 History Hfa Inhaler (u)] Carbidopa-Levodopa ER 25-100Mg 1 tab PO HS 06/21/16 01/23/17 History [Sinemet CR 25-100 mg] Fish Oil/Dha/Epa [Fish Oil 1,200 1 cap PO DAILY 06/21/16 01/23/17 History mg Fish Oil] Fluticasone Nasal [place] [Flonase 1 spr EA NOSTRIL BID 06/21/16 01/23/17 History Nasal [place]] Levothyroxine Sodium [Synthroid] 100 mcg PO DAILY 06/21/16 01/23/17 History Multivitamins, Thera [Multivitamin 1 tab PO DAILY 06/21/16 01/23/17 History (formulary)] traMADol HCL [Ultram] 50 mg PO Q6H PRN 06/21/16 01/23/17 History Flecainide Acetate [Tambocor] 100 mg PO Q12HR 01/23/17 01/23/17 History Ipratropium-Albuterol Nebulize 3 ml INHALATION RT-QID PRN 01/23/17 01/23/17 History [Duoneb 0.5 mg-3 mg/3 ml Soln] Allergies Allergy/AdvReac Type Severity Reaction Status Date / Time levofloxacin [From Levaquin] AdvReac Confusion/n Verified 08/17/20 08:34 ausea PQRS Measure Charge Sheet PQRS Narrative: Smoking Status Never smoker Home Medications: Ambulatory Orders Montelukast [Singulair] 10 mg PO DAILY 09/30/13 Rivaroxaban [Xarelto] 20 mg PO PC-SUPPER 09/30/13 ALPRAZolam [Xanax] 0.125 mg PO BID PRN 06/21/16 Albuterol Inhaler (Mhu) [Ventolin Hfa Inhaler (Mhu)] 1 - 2 puff INHALATION RT- Q6H PRN 06/21/16 Carbidopa-Levodopa ER 25-100Mg [Sinemet CR 25-100 mg] 1 tab PO HS 06/21/16 Fish Oil/Dha/Epa [Fish Oil 1,200 mg Fish Oil] 1 cap PO DAILY 06/21/16 Fluticasone Nasal [place] [Flonase Nasal [place]] 1 spr EA NOSTRIL BID 06/21/16 Levothyroxine Sodium [Synthroid] 100 mcg PO DAILY 06/21/16 Multivitamins, Thera [Multivitamin (formulary)] 1 tab PO DAILY 06/21/16 traMADol HCL [Ultram] 50 mg PO Q6H PRN 06/21/16 Flecainide Acetate [Tambocor] 100 mg PO Q12HR 01/23/17 Ipratropium-Albuterol Nebulize [Duoneb 0.5 mg-3 mg/3 ml Soln] 3 ml INHALATION RT-QID PRN 01/23/17
== END ==
LOC: PNWHC3 08:59
PROVIDERS: ATTEND Anesthesiology
DX: M47.816 Spondylosis without myelopathy or radiculopathy, lumbar region (principal); M48.061 Spinal stenosis, lumbar region without neurogenic claudication; J44.9 Chronic obstructive pulmonary disease, unspecified; Z87.39 Personal history of other diseases of the musculoskeletal system and connective tissue; I48.91 Unspecified atrial fibrillation; F41.9 Anxiety disorder, unspecified
CPT/HCPCS: 99211

== ENCOUNTER 2020-11-12 08:13 | Day surgery (SDC) | payer MEDICARE ==
[2020-11-11 08:45] VITALS: BMI 25.2
[~2020-11-12 08:13] MED LIST: LACTATED RINGERS 1,000 ML IV SCH
[2020-11-12 08:49] VITALS: TEMP 97.7
[2020-11-12] MEDS ORDERED: LACTATED RINGERS 1,000 ML IV ONE (08:54)
[2020-11-12] MEDS ORDERED: ROPIVACAINE 5MG/ML 20ML VIAL ONE (09:40)
[2020-11-12] MEDS ORDERED: fentaNYL (PF) 50 MCG/ML 2 ML AMP ONE (09:40)
[2020-11-12] MEDS ORDERED: TRIAMCINOLONE ACETONIDE 40 MG/ML 1 ML VIAL ONE (09:40)
[2020-11-12] MEDS ORDERED: LIDOCAINE 1% INJ 10MG/ML (20 ML MDV) ONE (09:40)
[2020-11-12] MEDS ORDERED: MIDAZOLAM 2 MG/2 ML VIAL ONE (09:40)
--- NOTE | 2020-11-12 10:14 | P.PCN ---
Date of Procedure: 11/12/20 Surgeon: Kyler Magdaleno Pathology: none sent Condition: stable Disposition: PACU Description of Procedure: PREOPERATIVE DIAGNOSIS: Lumbar spondylosis without myelopathy, morbid obesity POSTOPERATIVE DIAGNOSIS: Lumbar spondylosis without myelopathy,morbid obesity PROCEDURES : left Radiofrequency thermocoagulation L3-L4, L4-L5, and L5-S1 medial branches , with fluoroscopic guidance ANESTHESIA: IV moderate conscious sedation with versed and fentanyl and local infiltration with lidocaine 1% 5 ml Physician:Kyler Magdaleno MD EBL: Minimal PROCEDURE INDICATION: The patient with low back pain secondary to lumbar facet arthropathy who had more than 50% relief of her pain with previous diagnostic lumbar medial branch block with bupivacaine. PROCEDURE DESCRIPTION / TECHNIQUE: The patient was seen and identified in the preoperative area. Risks, benefits, complications, including but not limited to risk of infection ,bleeding , allergic reactions to the medications and no complete pain relief , and alternatives were discussed with the patient, the patient agreed to proceed with the procedure and signed the consent. IV was started. Vital signs remained stable throughout the procedure. Patient was taken to the OR and time out was completed. The patient was placed in the prone position on the procedure table. The lumber area was prepped and draped in the usual sterile fashion. . Vital signs were closely monitored during the procedure .IV sedation was used during the procedure to decrease patients anxiety. The target points were identified as follows: For the L5-S1 level which cor responds to the dorsal ramus of L5 the target point was at the superior medial aspect of the sacral ala on the ---- side of the spine on the AP view of fluoroscopy and for the L2, L3, and L4 medial branches the target points were at the connection between the transverse process and the superior articular process of L3, L4, and L5 vertebra respectively on the left oblique view of fluoroscopy. skin was marked, and localized with 1% lidocaineat these points. Subsequently, an 18 -jd radiofrequency needles with a 10-mm curved active tips were advanced guided by fluoroscopy to each of the target points mentioned above in a superior medial direction to get the active tips as parallel as possible to the medial branches tracks. AP, oblique, and lateral views of fluoroscopy were used to verify needle tips position. Each level then underwent motor testing at 2.5 Hz and 0 to 3 volt with local stimulation, but no radicular symptoms down the legs. I then injected 1 mL of lidocaine 1% in each needle before starting radiofrequency thermocoagulation at 80 degrees celsius for 90 seconds. After that I injected 1 ml of PF Marcaine 0.5%(3 mls) with 40 mg of Kenalog, 1 mL of this mixture was given in each needle before taking the needles out intact. At the end of the procedure, the skin was cleansed and bandages were applied. A copy of needle placement fluoroscopy was saved on the C-arm machine. COMPLICATIONS: No acute complications. DISPOSITION / PLANS: The patient was placed in a supine position and transferred to the recovery area in a stable condition for observation and was discharged from the recovery room after meeting discharge criteria. Home discharge instructions given to the patient by the staff. The patient was reexamined prior to discharge. The patient will schedule a follow up in the clinic in 2-4 weeks.
[2020-11-12 10:22] VITALS: RESP 16
--- NOTE | 2020-11-12 10:25 | FL ---
Fluoroscopy HISTORY: Pain 26 seconds fluoroscopy time supplied to the referring clinician. 2 intraoperative C-arm images docum ent the procedure. See dictated report from anesthesia.
[2020-11-12 10:35] VITALS: BP 124/71; PULSE 74
[2020-11-12] MEDS ORDERED: IV FLUID CONTINUATION 1,000 ML IV ONE (10:41)
== END 2020-11-12 11:00 | disposition home or self-care (01) ==
LOC: ORPAIN 08:13
PROVIDERS: ATTEND Anesthesiology
DX: M47.816 Spondylosis without myelopathy or radiculopathy, lumbar region (principal); E66.01 Morbid (severe) obesity due to excess calories
CPT/HCPCS: 64635; 64636; J2250; J3301; J2001; J3010; J2795; 99152; 99153

== ENCOUNTER 2020-12-05 18:05 | Inpatient (IN) | payer MEDICARE ==
--- NOTE | 2020-12-05 18:40 | ED ---
General Adult HPI - General Chief complaint: Altered Mental Status Stated complaint: confusion, lethargic Time Seen by Provider: 12/05/20 18:40 Source: patient, family Mode of arrival: wheelchair Limitations: no limitations - History of Present Illness Initial comments: Patient presents to the ED with her niece for evaluation. Per niece, the patient has been generally weak and confused today. Per niece, the patient was started on amoxicillin for a sinus infection 2 days ago. Patient states that she feels generally weak. Patient also states that she has had a sore throat and cough for the past couple of days. Patient denies trauma or injury, fever or chills, headache, focal numbness/weakness/neuro deficit, visual changes, neck pain or stiffness, chest pain, dyspnea, hemoptysis, palpitations, dizziness, syncopal, abdominal pain, nausea/vomiting/diarrhea, bloody or melanotic stool, dysuria or urinary symptoms, or any other symptoms or complaints. Patient states that she is fully vaccinated against Covid. - Related Data Home Medications Medication Instructions Recorded Confirmed Montelukast [Singulair] 10 mg PO DAILY 09/30/13 11/11/20 Rivaroxaban [Xarelto] 20 mg PO PC-SUPPER 09/30/13 11/11/20 ALPRAZolam [Xanax] 0.125 mg PO BID PRN 06/21/16 11/11/20 Albuterol Inhaler (Mhu) [Ventolin 1 - 2 puff INHALATION RT-Q6H PRN 06/21/16 11/11/20 Hfa Inhaler (Mhu)] Fish Oil/Dha/Epa [Fish Oil 1,200 1 cap PO DAILY 06/21/16 11/11/20 mg Fish Oil] Fluticasone Nasal [place] [Flonase 1 spr EA NOSTRIL BID 06/21/16 11/11/20 Nasal [place]] Levothyroxine Sodium [Synthroid] 100 mcg PO DAILY 06/21/16 11/11/20 Multivitamins, Thera [Multivitamin 1 tab PO DAILY 06/21/16 11/11/20 (formulary)] traMADol HCL [Ultram] 50 mg PO Q6H PRN 06/21/16 11/11/20 Flecainide Acetate [Tambocor] 100 mg PO Q12HR 01/23/17 11/11/20 Ipratropium-Albuterol Nebulize 3 ml INHALATION RT-QID PRN 01/23/17 11/11/20 [Duoneb 0.5 mg-3 mg/3 ml Soln] Budesonide [Pulmicort] 0.5 mg PO DAILY 09/30/20 11/11/20 Loratadine 10 mg PO QAM 09/30/20 11/11/20 Pravastatin Sodium [Pravachol] 20 mg PO HS 09/30/20 11/11/20 diphenhydrAMINE [Benadryl] 25 mg PO HS 09/30/20 11/11/20 Cholecalciferol [Vitamin D3 (25 25 mcg PO DAILY 11/11/20 11/11/20 Mcg = 1000 Iu)] Zolpidem [Ambien] 10 mg PO HS PRN 11/11/20 11/11/20 Allergies Allergy/AdvReac Type Severity Reaction Status Date / Time levofloxacin [From Levaquin] AdvReac Confusion/n Verified 12/05/20 21:19 ausea Review of Systems ROS Statement: Those systems with pertinent positive or pertinent negative responses have been documented in the HPI. ROS Other: All systems not noted in ROS Statement are negative. Past Medical History Past Medical History: Atrial Fibrillation, Asthma, COPD, Musculoskeletal Diso rder, Thyroid Disorder Additional Past Medical History / Comment(s): osteopenia, brain tumor which was removed, hep A at age 15, RLS, treated for seizures after brain tumor removed but no longer takes med, lower lt back pain History of Any Multi-Drug Resistant Organisms: ESBL Date of last positivie culture/infection: 08/17/18 MDRO Source:: ESBL URINE Past Surgical History: Cardiac Ablation Additional Past Surgical History / Comment(s): Cardiac AblationX2, Brain tumor removal, cataract Past Anesthesia/Blood Transfusion Reactions: No Reported Reaction Past Psychological History: Anxiety Smoking Status: Never smoker Past Alcohol Use History: None Reported Past Drug Use History: None Reported - Past Family History Father Brother(s) Family Medical History: Blood Disorder, COPD General Exam Limitations: no limitations General appearance: alert, in no apparent distress Head exam: Present: atraumatic, normocephalic Eye exam: Present: normal appearance, PERRL, EOMI ENT exam: Present: normal oropharynx, mucous membranes moist Neck exam: Present: other (Trachea is in midline). Absent: tenderness, m eningismus Respiratory exam: Present: normal lung sounds bilaterally. Absent: respiratory distress, wheezes, rales, rhonchi, stridor Cardiovascular Exam: Present: regular rate, normal rhythm, normal heart sounds, other (Normal radial pulses bilaterally) GI/Abdominal exam: Present: soft. Absent: distended, tenderness, guarding Extremities exam: Absent: tenderness, pedal edema, calf tenderness Neurological exam: Present: alert, oriented X3, CN II-XII intact. Absent: motor sensory deficit Psychiatric exam: Present: normal affect, normal mood Skin exam: Present: warm, dry, intact, normal color Course Vital Signs 12/05/20 12/05/20 12/05/20 18:14 20:24 21:00 Temperature 97.9 F 98.7 F Pulse Rate 60 68 66 Respiratory 16 16 1 L Rate Blood Pressure 134/68 149/78 138/70 O2 Sat by Pulse 100 100 Oximetry - Reevaluation(s) Reevaluation #1: 12/05/20 20:53 Case, H&P, test results and ED management were discussed with Dr. Ricketts. He accepts hospital admission. He has no further recommendations at this time. 12/05/20 20:55 Patient and niece are aware the patient's test results, and they both agree with hospital admission at this time. Patient remains alert and breathing comfortably. EKG Findings - EKG Comments: EKG Findings:: Sinus bradycardia with first-degree AV block, ventricular rate of 59 bpm, no ectopy, W[place] interval of 242 ms, normal QRS duration, normal QT interval, leftward axis, no ST or T-wave abnormality Medical Decision Making - Medical Decision Making Patient has significant hyponatremia on laboratory evaluation, which I suspect is the etiology of the patient's confusion weakness. Patient's labs are otherwise fairly unremarkable. Patient's head CT is negative. Patient has not had any seizure activity. Patient's chest x-ray shows bilateral pulmonary opacities. Given the patient's reported cough and recent diagnosis of sinus infection, I suspect that the patient's opacities likely represent pneumonia. Patient has been treated with IV antibiotics in the ED. Will treat the patient's hyponatremia with oral fluid restriction and gentle normal saline IV hydration for slow sodium correction. Dr. Ricketts has accepted hospital admission. - Lab Data Result diagrams: 12/05/20 18:56 12/05/20 18:56 Lab Results 12/05/20 12/05/20 12/05/20 Range/Units 18:56 18:56 18:56 WBC 6.5 (3.8-10.6) k/uL RBC 3.83 (3.80-5.40) m/uL Hgb 12.0 (11.4-16.0) gm/dL Hct 34.9 (34.0-46.0) % MCV 91.2 (80.0-100.0) fL MCH 31.3 (25.0-35.0) pg MCHC 34.3 (31.0-37.0) g/dL RDW 15.0 (11.5-15.5) % Plt Count 124 L (150-450) k/uL MPV 7.5 Neutrophils % 70 % Lymphocytes % 13 % Monocytes % 13 % Eosinophils % 1 % Basophils % 0 % Neutrophils # 4.6 (1.3-7.7) k/uL Lymphocytes # 0.8 L (1.0-4.8) k/uL Monocytes # 0.8 (0-1.0) k/uL Eosinophils # 0.1 (0-0.7) k/uL Basophils # 0.0 (0-0.2) k/uL PT 10.7 (9.0-12.0) sec INR 1.0 (<1.2) APTT 32.0 H (22.0-30.0) sec Sodium (137-145) mmol/L Potassium (3.5-5.1) mmol/L Chloride (98-107) mmol/L Carbon Dioxide (22-30) mmol/L Anion Gap mmol/L BUN (7-17) mg/dL Creatinine (0.52-1.04) mg/dL Est GFR (CKD-EPI)AfAm (>60 ml/min/1.73 sqM) Est GFR (CKD-EPI)NonAf (>60 ml/min/1.73 sqM) Glucose (74-99) mg/dL Plasma Lactic Acid Grant (0.7-2.0) mmol/L Calcium (8.4-10.2) mg/dL Total Bilirubin (0.2-1.3) mg/dL AST (14-36) U/L ALT (4-34) U/L Alkaline Phosphatase (38-126) U/L Troponin I (0.000-0.034) ng/mL Total Protein (6.3-8.2) g/dL Albumin (3.5-5.0) g/dL Urine Color Yellow Urine Appearance Clear (Clear) Urine pH 6.0 (5.0-8.0) Ur Specific [place] 1.018 (1.001-1.035) Urine Protein Negative (Negative) Urine Glucose (UA) Negative (Negative) Urine Ketones 1+ H (Negative) Urine Blood Trace H (Negative) Urine Nitrite Negative (Negative) Urine Bilirubin Negative (Negative) Urine Urobilinogen <2.0 (<2.0) mg/dL Ur Leukocyte Esterase Negative (Negative) Urine RBC 4 (0-5) /hpf Urine WBC 1 (0-5) /hpf Urine Mucus Rare H (None) /hpf Serum Alcohol mg/dL Group A Strep Rapid (Negative) 12/05/20 12/05/20 12/05/20 Range/Units 18:56 18:56 18:56 WBC (3.8-10.6) k/uL RBC (3.80-5.40) m/uL Hgb (11.4-16.0) gm/dL Hct (34.0-46.0) % MCV (80.0-100.0) fL MCH (25.0-35.0) pg MCHC (31.0-37.0) g/dL RDW (11.5-15.5) % Plt Count (150-450) k/uL MPV Neutrophils % % Lymphocytes % % Monocytes % % Eosinophils % % Basophils % % Neutrophils # (1.3-7.7) k/uL Lymphocytes # (1.0-4.8) k/uL Monocytes # (0-1.0) k/uL Eosinophils # (0-0.7) k/uL Basophils # (0-0.2) k/uL PT (9.0-12.0) sec INR (<1.2) APTT (22.0-30.0) sec Sodium 113 L* (137-145) mmol/L Potassium 4.1 (3.5-5.1) mmol/L Chloride 81 L (98-107) mmol/L Carbon Dioxide 24 (22-30) mmol/L Anion Gap 8 mmol/L BUN 16 (7-17) mg/dL Creatinine 0.60 (0.52-1.04) mg/dL Est GFR (CKD-EPI)AfAm >90 (>60 ml/min/1.73 sqM) Est GFR (CKD-EPI)NonAf 90 (>60 ml/min/1.73 sqM) Glucose 88 (74-99) mg/dL Plasma Lactic Acid [place] <0.5 L (0.7-2.0) mmol/L Calcium 8.8 (8.4-10.2) mg/dL Total Bilirubin 1.0 (0.2-1.3) mg/dL AST 42 H (14-36) U/L ALT 23 (4-34) U/L Alkaline Phosphatase 106 (38-126) U/L Troponin I <0.012 (0.000-0.034) ng/mL Total Protein 6.5 (6.3-8.2) g/dL Albumin 3.8 (3.5-5.0) g/dL Urine Color Urine Appearance (Clear) Urine pH (5.0-8.0) Ur Specific [place] (1.001-1.035) Urine Protein (Negative) Urine Glucose (UA) (Negative) Urine Ketones (Negative) Urine Blood (Negative) Urine Nitrite (Negative) Urine Bilirubin (Negative) Urine Urobilinogen (<2.0) mg/dL Ur Leukocyte Esterase (Negative) Urine RBC (0-5) /hpf Urine WBC (0-5) /hpf Urine Mucus (None) /hpf Serum Alcohol <10 mg/dL Group A Strep Rapid (Negative) 12/05/20 Range/Units 18:56 WBC (3.8-10.6) k/uL RBC (3.80-5.40) m/uL Hgb (11.4-16.0) gm/dL Hct (34.0-46.0) % MCV (80.0-100.0) fL MCH (25.0-35.0) pg MCHC (31.0-37.0) g/dL RDW (11.5-15.5) % Plt Count (150-450) k/uL MPV Neutrophils % % Lymphocytes % % Monocytes % % Eosinophils % % Basophils % % Neutrophils # (1.3-7.7) k/uL Lymphocytes # (1.0-4.8) k/uL Monocytes # (0-1.0) k/uL Eosinophils # (0-0.7) k/uL Basophils # (0-0.2) k/uL PT (9.0-12.0) sec INR (<1.2) APTT (22.0-30.0) sec Sodium (137-145) mmol/L Potassium (3.5-5.1) mmol/L Chloride (98-107) mmol/L Carbon Dioxide (22-30) mmol/L Anion Gap mmol/L BUN (7-17) mg/dL Creatinine (0.52-1.04) mg/dL Est GFR (CKD-EPI)AfAm (>60 ml/min/1.73 sqM) Est GFR (CKD-EPI)NonAf (>60 ml/min/1.73 sqM) Glucose (74-99) mg/dL Plasma Lactic Acid [place] (0.7-2.0) mmol/L Calcium (8.4-10.2) mg/dL Total Bilirubin (0.2-1.3) mg/dL AST (14-36) U/L ALT (4-34) U/L Alkaline Phosphatase (38-126) U/L Troponin I (0.000-0.034) ng/mL Total Protein (6.3-8.2) g/dL Albumin (3.5-5.0) g/dL Urine Color Urine Appearance (Clear) Urine pH (5.0-8.0) Ur Specific [place] (1.001-1.035) Urine Protein (Negative) Urine Glucose (UA) (Negative) Urine Ketones (Negative) Urine Blood (Negative) Urine Nitrite (Negative) Urine Bilirubin (Negative) Urine Urobilinogen (<2.0) mg/dL Ur Leukocyte Esterase (Negative) Urine RBC (0-5) /hpf Urine WBC (0-5) /hpf Urine Mucus (None) /hpf Serum Alcohol mg/dL Group A Strep Rapid Negative (Negative) - Radiology Data Radiology results: report reviewed (Noncontrast head CT: No acute intracranial abnormality; chest x-ray mild to moderate opacities with component of interstitial edema) Critical Care Time Critical Care Time: Yes Total Critical Care Time: 30 Disposition Clinical Impression: Generalized weakness, Confusion, Hyponatremia, Pneumonia Disposition: ADMITTED IP TO THIS HOSP Condition: Stable Is patient prescribed a controlled substance at d/c from ED?: No Time of Disposition: 20:53
[2020-12-05 19:25] LABS: Basophils % (A) 0 %; Eosinophils # (A) 0.1 k/uL (0-0.7); Eosinophils % (A) 1 %; HCT 34.9 % (34.0-46.0); Lymphocytes # (A) 0.8 k/uL (1.0-4.8); Lymphocytes % (A) 13 %; MCH 31.3 pg (25.0-35.0); MCHC 34.3 g/dL (31.0-37.0); MCV 91.2 fL (80.0-100.0); Mean Platelet Volume 7.5; Monocytes # (A) 0.8 k/uL (0-1.0); Monocytes % (A) 13 %; Neutrophils # (A) 4.6 k/uL (1.3-7.7); Neutrophils % (A) 70 %; Platelet Count 124 k/uL (150-450); RBC 3.83 m/uL (3.80-5.40); WBC 6.5 k/uL (3.8-10.6)
[2020-12-05 19:36] LABS: ALT 23 U/L (4-34); AST 42 U/L (14-36); African American GFR (CKD) >90 (>60 ml/min/1.73 sqM); Albumin 3.8 g/dL (3.5-5.0); Alcohol <10 mg/dL; Alkaline Phosphatase 106 U/L (38-126); Anion Gap 8 mmol/L; Blood Urea Nitrogen 16 mg/dL (7-17); Calcium 8.8 mg/dL (8.4-10.2); Carbon Dioxide 24 mmol/L (22-30); Chloride 81 mmol/L (98-107); Glucose 88 mg/dL (74-99); Non-African American GFR(CKD) 90 (>60 ml/min/1.73 sqM); Potassium 4.1 mmol/L (3.5-5.1); Total Protein 6.5 g/dL (6.3-8.2)
[2020-12-05 19:45] LABS: Prothrombin Time 10.7 sec (9.0-12.0)
[2020-12-05 19:48] LABS: Sodium 113 mmol/L (137-145)
[2020-12-05] MEDS: SODIUM CHLORIDE 0.9% 1,000 ML IV SCH (20:16)
--- NOTE | 2020-12-05 20:40 | CT ---
EXAM: CT brain wo con CLINICAL HISTORY: Confusion and weakness. COMPARISON: None TECHNIQUE: Contiguous axial noncontrast images of the brain were obtained. Coronal and sagittal refor mats were generated and reviewed. Automated dose control was used for this exam. FINDINGS: There is no evidence for intracranial hemorrhage, mass effect or midline shift. The white matter is g rossly preserved. Ventricular size and configuration is within normal limits for degree of parenchymal volume. The paranasal sinuses are clear. The mastoid air cells are clear. No acute osseous abnormality. Prior left frontal craniotomy noted. IMPRESSION: No acute intracranial abnormality.
[2020-12-05] MEDS ORDERED: MORPHINE SULFATE 4 MG/ML SYRINGE IVP STA (20:48)
[2020-12-05] MEDS ORDERED: ONDANSETRON 4 MG/2 ML VIAL IVP STA (20:48)
[2020-12-05 21:16] LABS: Appearance,Urine Clear (Clear); Bilirubin,Urine Negative (Negative); Blood,Urine Trace (Negative); Color,Urine Yellow; Glucose,Urine (UA) Negative (Negative); Ketones,Urine 1+ (Negative); Leukocyte Esterase,Urine Negative (Negative); Mucus,Urine Rare /hpf; Nitrite,Urine Negative (Negative); Protein,Urine Negative (Negative); RBC,Urine 4 /hpf (0-5); Specific Gravity,Urine 1.018 (1.001-1.035); Urobilinogen,Urine <2.0 mg/dL (<2.0); WBC,Urine 1 /hpf (0-5)
--- NOTE | 2020-12-05 21:17 | XR ---
EXAMINATION TYPE: XR chest 2V DATE OF EXAM: 12/05/2020 COMPARISON: CT 07/03/2019. HISTORY: Altered mental status. TECHNIQUE: Frontal and lateral views of the chest are obtained. FINDINGS: There is diffuse mild to moderate hazy and streaky opacities with component of interstitia l edema. No significant pleural effusion, or pneumothorax seen. The cardiac silhouette size is withi n normal limits. The osseous structures are intact. IMPRESSION: Mild to moderate opacities with component of interstitial edema.
[2020-12-05 21:30] LABS: Amphetamine Screen,Urine Not Detected (NotDetected); Barbiturate Screen,Urine Not Detected (NotDetected); Benzodiazepines Screen,Urine Not Detected (NotDetected); Cocaine Screen,Urine Not Detected (NotDetected); Methadone Screen, Urine Not Detected (NotDetected); Opiate Screen,Urine Not Detected (NotDetected); Oxycodone Screen, Urine Not Detected (NotDetected); Phencyclidine Screen,Urine Not Detected (NotDetected); Tricyclic Antidepressant,Urine Not Detected (NotDetected); Urn Cannabinoid Scrn Not Detected (NotDetected)
[2020-12-05] MEDS ORDERED: AZITHROMYCIN 500 MG in SODIUM CHLORIDE 0.9% 250 ML IVPB ONE (21:30)
[2020-12-05] MEDS ORDERED: NAPROXEN 250 MG TAB PO PRN (22:58)
[2020-12-06] MEDS ORDERED: DILTIAZEM 125 MG in SODIUM CHLORIDE 0.9% 100 ML IV SCH (04:15)
[2020-12-06] MEDS: SODIUM CHLORIDE 0.9% 1,000 ML IV SCH (04:52)
[2020-12-06] MEDS ORDERED: LEVOTHYROXINE 112 MCG TAB PO SCH (06:30)
[2020-12-06 07:42] LABS: Basophils % (A) 0 %; Eosinophils # (A) 0.1 k/uL (0-0.7); Eosinophils % (A) 0 %; HCT 38.4 % (34.0-46.0); HGB 13.3 gm/dL (11.4-16.0); Lymphocytes # (A) 0.7 k/uL (1.0-4.8); Lymphocytes % (A) 5 %; MCH 31.3 pg (25.0-35.0); MCHC 34.6 g/dL (31.0-37.0); MCV 90.6 fL (80.0-100.0); Mean Platelet Volume 7.7; Monocytes # (A) 0.8 k/uL (0-1.0); Monocytes % (A) 6 %; Neutrophils # (A) 11.5 k/uL (1.3-7.7); Neutrophils % (A) 88 %; Platelet Count 152 k/uL (150-450); RBC 4.23 m/uL (3.80-5.40); RDW 14.3 % (11.5-15.5); WBC 13.1 k/uL (3.8-10.6)
--- NOTE | 2020-12-06 07:57 | P.CRDCN ---
History of Present Illness Consult date: 12/06/20 History of present illness: HISTORY OF PRESENT ILLNESS: This is a 75-year-old female with a past medical history significant for paroxysmal atrial fibrillation and atrial flutter with previous ablation, hypothyroidism, and COPD. Patient follows in the office with Dr. Beltran. We have been asked to see the patient in consultation for A. fib with RVR. Patient was brought into the hospital by her niece secondary to generalized weakness and confusion. Apparently the patient was started on antibiotics a few days ago for a sinus infection. The patient was found to be severely hyponatremic with a sodium of 113. She was admitted to the hospital. Patient examined at the bedside. Patient is slightly lethargic at the time of examination, however she is answer to answer some questions. She denies chest pain or pressure. Denies shortness of breath. Denies dizziness or lightheadedness. Denies palpitations. Patient was in sinus mechanism upon presentation to the hospital. Patient went into A. fib with RVR overnight. She was started on a Cardizem drip which is currently infusing at 5 mg an hour. Patient remains in atrial fibrillation with a heart rate around 115. EKG reveals sinus mechanism on admission Chest xray mild to moderate opacities with component of interstitial edema Laboratory data: WBC 13.1. Hemoglobin 13.3. Platelet count 152. Sodium 113. Potassium 4.1. BUN 16. Creatinine 0.60. Lactic acid 0.5. Troponin negative 1. Current home cardiac medications include Xarelto 20 mg daily and Flecainide 100 mg daily Most recent echocardiogram obtained in 2018 reveals ejection fraction 55%. Mild tricuspid regurgitation. Patient underwent Lexiscan stress test in 2017 revealing moderate reversible defect involving the apical lateral wall distribution of the left circumflex coronary artery indicative of ischemia. Patient underwent cardiac catheterization in December 2016 revealing normal coronary arteries and normal end-diastolic pressure. REVIEW OF SYSTEMS: Unable to obtain thorough review of systems secondary to altered mental status PHYSICAL EXAM: VITAL SIGNS: Reviewed. GENERAL: Well-developed in no acute distress. HEENT: Head is normocephalic. Pupils are equal, round. Sclerae anicteric. Mucous membranes of the mouth are moist. Neck supple. No JVD or thyromegaly LUNGS: Respirations even and unlabored. Lungs essentially clear to auscultation bilaterally. HEART: Tachycardic. Irregular rate and rhythm. S1 and S2 heard. ABDOMEN: Soft. Nondistended. Nontender. EXTREMITIES: Normal range of motion. No clubbing or cyanosis. Peripheral pulses intact. No lower extremity edema NEUROLOGIC: Slightly lethargic. Awakens to verbal stimuli. ASSESSMENT: Generalized weakness Severe hyponatremia Paroxysmal atrial fibrillation, typical a flutter with RVR History of cardiac ablation COPD Hypothyroidism PLAN: Obtain 2-D echo to assess cardiac structure and function Resume home cardiac medications Continue anticoagulation with Xarelto Continue IV Cardizem. Wean as tolerated Begin metoprolol 25 mg twice a day Continue telemetry monitoring Further recommendations pending patient's course Nurse practitioner note has been reviewed by physician. Signing provider agrees with the documented findings, assessment, and plan of care. Past Medical History Past Medical History: Atrial Fibrillation, Asthma, COPD, Musculoskeletal Disorder, Thyroid Disorder Additional Past Medical History / Comment(s): osteopenia, brain tumor which was removed, hep A at age 15, RLS, treated for seizures after brain tumor removed but no longer takes med, lower lt back pain History of Any Multi-Drug Resistant Organisms: ESBL Date of last positivie culture/infection: 08/17/18 MDRO Source:: ESBL URINE Past Surgical History: Cardiac Ablation Additional Past Surgical History / Comment(s): Cardiac AblationX2, Brain tumor removal, cataract Past Anesthesia/Blood Transfusion Reactions: No Reported Reaction Past Psychological History: Anxiety Smoking Status: Never smoker Past Alcohol Use History: None Reported Past Drug Use History: None Reported - Past Family History Father Brother(s) Family Medical History: Blood Disorder, COPD Medications and Allergies Home Medications Medication Instructions Recorded Confirmed Type Montelukast [Singulair] 10 mg PO DAILY 09/30/13 12/05/20 History Rivaroxaban [Xarelto] 20 mg PO PC-SUPPER 09/30/13 12/05/20 History Fluticasone Nasal Diana [Flonase 1 spr EA NOSTRIL BID 06/21/16 12/05/20 History Nasal Diana] Flecainide Acetate [Tambocor] 100 mg PO DAILY 01/23/17 12/05/20 History Loratadine 10 mg PO QAM 09/30/20 12/05/20 History Pravastatin Sodium [Pravachol] 20 mg PO HS 09/30/20 12/05/20 History Zolpidem [Ambien] 10 mg PO HS PRN 11/11/20 12/05/20 History Albuterol Inhaler [Ventolin Hfa 1 - 2 puff INHALATION RT-Q6H PRN 12/05/20 12/05/20 History Inhaler] Amoxicillin 500 mg PO Q12H 12/05/20 12/05/20 History Budesonide [Pulmicort] 0.5 mg INHALATION RT-BID 12/05/20 12/05/20 History Levothyroxine Sodium [Synthroid] 112 mcg PO DAILY 12/05/20 12/05/20 History Naproxen [Naprosyn] 500 mg PO BID PRN 12/05/20 12/05/20 History Allergies Allergy/AdvReac Type Severity Reaction Status Date / Time levofloxacin [From Levaquin] AdvReac Confusion/n Verified 12/05/20 21:19 ausea Physical Exam Vitals: Vital Signs Temp Pulse Pulse Resp BP BP Pulse Ox 12/06/20 03:45 98.4 F 113 H 16 127/62 98 12/06/20 02:00 70 17 12/05/20 23:27 97.8 F 70 17 166/88 98 12/05/20 21:06 97.8 F 70 17 166/88 98 12/05/20 21:00 98.7 F 66 1 L 138/70 100 12/05/20 20:24 68 16 149/78 12/05/20 18:14 97.9 F 60 16 134/68 100 Intake and Output 12/05/20 12/06/20 12/06/20 22:59 06:59 14:59 Output Total 300 120 Balance -300 -120 Output: Urine 300 120 Straight 300 Other: Weight 77.111 kg 76.5 kg Results 12/06/20 07:08 12/05/20 18:56 Cardiac Enzymes 12/05/20 12/05/20 Range/Units 18:56 18:56 AST 42 H (14-36) U/L Troponin I <0.012 (0.000-0.034) ng/mL Coagulation 12/05/20 Range/Units 18:56 PT 10.7 (9.0-12.0) sec APTT 32.0 H (22.0-30.0) sec CBC 12/05/20 12/06/20 Range/Units 18:56 07:08 WBC 6.5 13.1 H (3.8-10.6) k/uL RBC 3.83 4.23 (3.80-5.40) m/uL Hgb 12.0 13.3 (11.4-16.0) gm/dL Hct 34.9 38.4 (34.0-46.0) % Plt Count 124 L 152 (150-450) k/uL Comprehensive Metabolic Panel 12/05/20 Range/Units 18:56 Sodium 113 L* (137-145) mmol/L Potassium 4.1 (3.5-5.1) mmol/L Chloride 81 L (98-107) mmol/L Carbon Dioxide 24 (22-30) mmol/L BUN 16 (7-17) mg/dL Creatinine 0.60 (0.52-1.04) mg/dL Glucose 88 (74-99) mg/dL Calcium 8.8 (8.4-10.2) mg/dL AST 42 H (14-36) U/L ALT 23 (4-34) U/L Alkaline Phosphatase 106 (38-126) U/L Total Protein 6.5 (6.3-8.2) g/dL Albumin 3.8 (3.5-5.0) g/dL Current Medications Generic Name Dose Route Start Last Admin Trade Name Freq PRN Reason Stop Dose Admin Albuterol Sulfate 2 mg 12/06/20 06:00 Albuterol Nebulized 2.5 Mg/3 Ml INHALATION RT-Q6H PRN Shortness Of Breath Budesonide 0.5 mg 12/06/20 08:00 Budesonide 0.5 Mg/2 Ml Nebu INHALATION RT-BID [facility] Flecainide Acetate 100 mg 12/06/20 09:00 Flecainide 50 Mg Tab PO DAILY [place] Fluticasone Propionate 1 spray 12/06/20 09:00 Fluticasone 50mcg/Diana Nasal 16gm EA NOSTRIL BID [place] Sodium Chloride 1,000 mls @ 100 mls/hr 12/05/20 20:15 12/06/20 04:52 Saline 0.9% IV 100 mls/hr .Q10H [place] Administration Diltiazem HCl 125 mg/ Sodium 125 mls @ 5 mls/hr 12/06/20 04:15 12/06/20 04:51 Chloride IV 5 mg/hr .Q24H [place] 5 mls/hr Administration 5 MG/HR Levothyroxine Sodium 112 mcg 12/06/20 06:30 12/06/20 06:29 Levothyroxine 112 Mcg Tab PO 112 mcg DAILY@0630 [facility] Administration Loratadine 10 mg 12/06/20 09:00 Loratadine 10 Mg Tab PO QAM [facility] Montelukast Sodium 10 mg 12/06/20 09:00 Montelukast 10 Mg Tab PO DAILY [place] Naproxen 500 mg 12/05/20 22:58 Naproxen 250 Mg Tab PO BID PRN Pain Pravastatin Sodium 20 mg 12/06/20 21:00 Pravastatin Sodium 20 Mg Tab PO HS [place] Rivaroxaban 20 mg 12/06/20 18:30 Rivaroxaban 20 Mg Tab PO PC-SUPPER [facility] Protocol Zolpidem Tartrate 10 mg 12/06/20 21:00 Zolpidem 5 Mg Tab PO HS PRN Insomnia Intake and Output 12/05/20 12/06/20 12/06/20 22:59 06:59 14:59 Output Total 300 120 Balance -300 -120 Output: Urine 300 120 Straight 300 Other: Weight 77.111 kg 76.5 kg 12/06/20 07:08 12/05/20 18:56
[2020-12-06 08:01] LABS: ALT 20 U/L (4-34); AST 38 U/L (14-36); African American GFR (CKD) >90 (>60 ml/min/1.73 sqM); Albumin 3.6 g/dL (3.5-5.0); Alkaline Phosphatase 111 U/L (38-126); Anion Gap 10 mmol/L; Blood Urea Nitrogen 10 mg/dL (7-17); Calcium 8.5 mg/dL (8.4-10.2); Carbon Dioxide 23 mmol/L (22-30); Chloride 82 mmol/L (98-107); Glucose 77 mg/dL (74-99); Non-African American GFR(CKD) 88 (>60 ml/min/1.73 sqM); Potassium 3.7 mmol/L (3.5-5.1); Total Protein 6.2 g/dL (6.3-8.2)
[2020-12-06 08:03] LABS: Sodium 115 mmol/L (137-145)
[2020-12-06] MEDS: ALBUTEROL NEBULIZED 2.5 MG/3 ML INHALATION PRN ×2 (08:31→15:58)
[2020-12-06] MEDS: BUDESONIDE 0.5 MG/2 ML NEBU INHALATION SCH ×2 (08:31→19:52)
[2020-12-06 08:55] LABS: T4, Free (Free Thyroxine) 1.63 ng/dL (0.78-2.19)
[2020-12-06] MEDS: FLECAINIDE 50 MG TAB PO SCH (09:59)
[2020-12-06] MEDS: MONTELUKAST 10 MG TAB PO SCH (09:59)
[2020-12-06] MEDS: METOPROLOL TARTRATE 25 MG TAB PO SCH ×2 (09:59→21:04)
[2020-12-06] MEDS: LORATADINE 10 MG TAB PO SCH (10:00)
--- NOTE | 2020-12-06 10:28 | P.CNPUL ---
History of Present Illness Consult date: 12/06/20 Chief complaint: Generalized weakness and hyponatremia History of present illness: I was consulted on this patient regarding severe hyponatremia, lethargy, diminished level of consciousness and arousal in addition to COPD. The patient is known to have COPD, paroxysmal atrial fibrillation and she has undergone previous ablation and she has history of hypothyroidism. No history of CHF. Her last ejection fraction from 2018 was 55% and the patient has had previous cardiac catheterization in 2017 showing normal coronaries and normal left zahida tricle end-diastolic pressure. She came into the hospital and she was found to be hyponatremic sodium level wasn't 113. The patient was given normal saline today to 100 mL an hour and his sodium level is at 115. Limited improvement in her lethargy compared to yesterday. She is arousable and she is able to answer questions for now. No angina. No palpitations. No hemodynamic instability. Chest x-ray showing some mild interstitial edema. Nevertheless, the patient is on oxygen at 2 L and there are no signs of any respiratory distress lungs a essentially clear this point in time.. She does not take any form of thiazides. No diarrhea. No other medications that can contribute to hyponatremia. Overnight, the patient went into a chair fibrillation with rapid ventricular response. The patient is currently on 5 mg an hour of Cardizem drip. Review of Systems ROS unobtainable: due to mental status Past Medical History Past Medical History: Atrial Fibrillation, Asthma, COPD, Musculoskeletal Disorder, Thyroid Disorder Additional Past Medical History / Comment(s): osteopenia, brain tumor which was removed, hep A at age 15, RLS, treated for seizures after brain tumor removed but no longer takes med, lower lt back pain History of Any Multi-Drug Resistant Organisms: ESBL Date of last positivie culture/infection: 08/17/18 MDRO Source:: ESBL URINE Past Surgical History: Cardiac Ablation Additional Past Surgical History / Comment(s): Cardiac AblationX2, Brain tumor removal, cataract Past Anesthesia/Blood Transfusion Reactions: No Reported Reaction Past Psychological History: Anxiety Smoking Status: Never smoker Past Alcohol Use History: None Reported Past Drug Use History: None Reported - Past Family History Father Brother(s) Family Medical History: Blood Disorder, COPD Medications and Allergies Home Medications Medication Instructions Recorded Confirmed Type Montelukast [Singulair] 10 mg PO DAILY 09/30/13 12/05/20 History Rivaroxaban [Xarelto] 20 mg PO PC-SUPPER 09/30/13 12/05/20 History Fluticasone Nasal [place] [Flonase 1 spr EA NOSTRIL BID 06/21/16 12/05/20 History Nasal [place]] Flecainide Acetate [Tambocor] 100 mg PO DAILY 01/23/17 12/05/20 History Loratadine 10 mg PO QAM 09/30/20 12/05/20 History Pravastatin Sodium [Pravachol] 20 mg PO HS 09/30/20 12/05/20 History Zolpidem [Ambien] 10 mg PO HS PRN 11/11/20 12/05/20 History Albuterol Inhaler [Ventolin Hfa 1 - 2 puff INHALATION RT-Q6H PRN 12/05/20 12/05/20 History Inhaler] Amoxicillin 500 mg PO Q12H 12/05/20 12/05/20 History Budesonide [Pulmicort] 0.5 mg INHALATION RT-BID 12/05/20 12/05/20 History Levothyroxine Sodium [Synthroid] 112 mcg PO DAILY 12/05/20 12/05/20 History Naproxen [Naprosyn] 500 mg PO BID PRN 12/05/20 12/05/20 History Allergies Allergy/AdvReac Type Severity Reaction Status Date / Time levofloxacin [From [facility]] AdvReac Confusion/n Verified 12/05/20 21:19 ausea Physical Exam Vitals: Vital Signs Temp Pulse Pulse Resp BP BP Pulse Ox 12/06/20 08:48 100 12/06/20 08:32 100 12/06/20 08:00 98 F 115 H 16 134/78 98 12/06/20 03:45 98.4 F 113 H 16 127/62 98 12/06/20 02:00 70 17 12/05/20 23:27 97.8 F 70 17 166/88 98 12/05/20 21:06 97.8 F 70 17 166/88 98 12/05/20 21:00 98.7 F 66 1 L 138/70 100 12/05/20 20:24 68 16 149/78 12/05/20 18:14 97.9 F 60 16 134/68 100 Intake and Output 12/05/20 12/06/20 12/06/20 22:59 06:59 14:59 Output Total 300 120 Balance -300 -120 Output: Urine 300 120 Straight 300 Other: Weight 77.111 kg 76.5 kg VITAL SIGNS: Reviewed. GENERAL: Well-developed in no acute distress. HEENT: Head is normocephalic. Pupils are equal, round. Sclerae anicteric. Mucous membranes of the mouth are moist. Neck supple. No JVD or thyromegaly LUNGS: Respirations even and unlabored. Lungs essentially clear to auscultation bilaterally. HEART: Tachycardic. Irregular rate and rhythm. S1 and S2 heard. ABDOMEN: Soft. Nondistended. Nontender. EXTREMITIES: Normal range of motion. No clubbing or cyanosis. Peripheral pulses intact. No lower extremity edema NEUROLOGIC: Slightly lethargic. Awakens to verbal stimuli. Logical deficits. She would withdraw to painful stimulation. Results - Laboratory Findings CBC and BMP: 12/06/20 07:08 12/06/20 07:08 ABG WBC 13.1 k/uL (3.8-10.6) H 12/06/20 07:08 RBC 4.23 m/uL (3.80-5.40) 12/06/20 07:08 Hgb 13.3 gm/dL (11.4-16.0) 12/06/20 07:08 Hct 38.4 % (34.0-46.0) 12/06/20 07:08 MCV 90.6 fL (80.0-100.0) 12/06/20 07:08 MCH 31.3 pg (25.0-35.0) 12/06/20 07:08 MCHC 34.6 g/dL (31.0-37.0) 12/06/20 07:08 RDW 14.3 % (11.5-15.5) 12/06/20 07:08 Plt Count 152 k/uL (150-450) 12/06/20 07:08 MPV 7.7 12/06/20 07:08 Neutrophils % 88 % 12/06/20 07:08 Lymphocytes % 5 % 12/06/20 07:08 Monocytes % 6 % 12/06/20 07:08 Eosinophils % 0 % 12/06/20 07:08 Basophils % 0 % 12/06/20 07:08 Neutrophils # 11.5 k/uL (1.3-7.7) H 12/06/20 07:08 Lymphocytes # 0.7 k/uL (1.0-4.8) L 12/06/20 07:08 Monocytes # 0.8 k/uL (0-1.0) 12/06/20 07:08 Eosinophils # 0.1 k/uL (0-0.7) 12/06/20 07:08 Basophils # 0.0 k/uL (0-0.2) 12/06/20 07:08 PT 10.7 sec (9.0-12.0) 12/05/20 18:56 INR 1.0 (<1.2) 12/05/20 18:56 APTT 32.0 sec (22.0-30.0) H 12/05/20 18:56 Sodium 115 mmol/L (137-145) L* 12/06/20 07:08 Potassium 3.7 mmol/L (3.5-5.1) 12/06/20 07:08 Chloride 82 mmol/L (98-107) L 12/06/20 07:08 Carbon Dioxide 23 mmol/L (22-30) 12/06/20 07:08 Anion Gap 10 mmol/L 12/06/20 07:08 BUN 10 mg/dL (7-17) 12/06/20 07:08 Creatinine 0.64 mg/dL (0.52-1.04) 12/06/20 07:08 Est GFR (CKD-EPI)AfAm >90 (>60 ml/min/1.73 sqM) 12/06/20 07:08 Est GFR (CKD-EPI)NonAf 88 (>60 ml/min/1.73 sqM) 12/06/20 07:08 Glucose 77 mg/dL (74-99) 12/06/20 07:08 Plasma Lactic Acid Zahida <0.5 mmol/L (0.7-2.0) L 12/05/20 18:56 Calcium 8.5 mg/dL (8.4-10.2) 12/06/20 07:08 Total Bilirubin 1.0 mg/dL (0.2-1.3) 12/06/20 07:08 AST 38 U/L (14-36) H 12/06/20 07:08 ALT 20 U/L (4-34) 12/06/20 07:08 Alkaline Phosphatase 111 U/L (38-126) 12/06/20 07:08 Troponin I <0.012 ng/mL (0.000-0.034) 12/05/20 18:56 Total Protein 6.2 g/dL (6.3-8.2) L 12/06/20 07:08 Albumin 3.6 g/dL (3.5-5.0) 12/06/20 07:08 TSH <0.015 mIU/L (0.465-4.680) L 12/06/20 07:08 Free T4 1.63 ng/dL (0.78-2.19) 12/06/20 07:08 Urine Color Yellow 12/05/20 18:56 Urine Appearance Clear (Clear) 12/05/20 18:56 Urine pH 6.0 (5.0-8.0) 12/05/20 18:56 Ur Specific [place] 1.018 (1.001-1.035) 12/05/20 18:56 Urine Protein Negative (Negative) 12/05/20 18:56 Urine Glucose (UA) Negative (Negative) 12/05/20 18:56 Urine Ketones 1+ (Negative) H 12/05/20 18:56 Urine Blood Trace (Negative) H 12/05/20 18:56 Urine Nitrite Negative (Negative) 12/05/20 18:56 Urine Bilirubin Negative (Negative) 12/05/20 18:56 Urine Urobilinogen <2.0 mg/dL (<2.0) 12/05/20 18:56 Ur Leukocyte Esterase Negative (Negative) 12/05/20 18:56 Urine RBC 4 /hpf (0-5) 12/05/20 18:56 Urine WBC 1 /hpf (0-5) 12/05/20 18:56 Urine Mucus Rare /hpf (None) H 12/05/20 18:56 Urine Opiates Screen Not Detected (NotDetected) 12/05/20 18:56 Ur Oxycodone Screen Not Detected (NotDetected) 12/05/20 18:56 Urine Methadone Screen Not Detected (NotDetected) 12/05/20 18:56 Ur Propoxyphene Screen Not Detected (NotDetected) 12/05/20 18:56 Ur Barbiturates Screen Not Detected (NotDetected) 12/05/20 18:56 U Tricyclic Antidepress Not Detected (NotDetected) 12/05/20 18:56 Ur Phencyclidine Scrn Not Detected (NotDetected) 12/05/20 18:56 Ur Amphetamines Screen Not Detected (NotDetected) 12/05/20 18:56 U Methamphetamines Scrn Not Detected (NotDetected) 12/05/20 18:56 U Benzodiazepines Scrn Not Detected (NotDetected) 12/05/20 18:56 Urine Cocaine Screen Not Detected (NotDetected) 12/05/20 18:56 U Marijuana (THC) Screen Not Detected (NotDetected) 12/05/20 18:56 Serum Alcohol <10 mg/dL 12/05/20 18:56 Group A Strep Rapid Negative (Negative) 12/05/20 18:56 PT/INR, D-dimer PT 10.7 sec (9.0-12.0) 12/05/20 18:56 INR 1.0 (<1.2) 12/05/20 18:56 Abnormal lab findings: Abnormal Labs 12/05/20 12/05/20 12/05/20 18:56 18:56 18:56 WBC Plt Count 124 L Neutrophils # Lymphocytes # 0.8 L APTT 32.0 H Sodium Chloride Plasma Lactic Acid Zahida AST Total Protein TSH Urine Ketones 1+ H Urine Blood Trace H Urine Mucus Rare H 12/05/20 12/05/20 12/06/20 18:56 18:56 07:08 WBC 13.1 H Plt Count Neutrophils # 11.5 H Lymphocytes # 0.7 L APTT Sodium 113 L* Chloride 81 L Plasma Lactic Acid Zahida <0.5 L AST 42 H Total Protein TSH Urine Ketones Urine Blood Urine Mucus 12/06/20 12/06/20 07:08 07:08 WBC Plt Count Neutrophils # Lymphocytes # APTT Sodium 115 L* Chloride 82 L Plasma Lactic Acid Zahida AST 38 H Total Protein 6.2 L TSH <0.015 L Urine Ketones Urine Blood Urine Mucus - Diagnostic Findings Chest x-ray: image reviewed Assessment and Plan Plan: 1 hyponatremia, likely acute with generalized weakness and lethargy and some diminished level of consciousness. Sodium level was 113. The patient was given normal saline at the rate of 100 mL an hour is currently up to 115. 2 diminished level of consciousness secondary to above 3 history of hypothyroidism 4 history of atrial fibrillation post-ablation 5 history of COPD/bronchial asthma 6 normal coronary based on previous cardiac catheterization. nausea of any congestion heart failure 7 history of brain tumor, resected 8 history of hepatitis A 9 history of restless leg syndrome 10 history of chronic back pain Plan Check urine osmolality and urine sodium, check thyroid function tests including TSH and free T4 Chest with this patient to the intensive care unit as the patient is going to need close monitoring of her mental status and the sodium level. Discussed the case with nephrology and the patient may benefit from hypertonic saline solution 3% as long as nephrology is agreeable. I do believe that the patient has some altered mentation and lethargy and the patient may need benefit from hypertonic saline solution with close monitoring of the sodium level and goal of doing it up to 120 today Continue Cardizem drip for now Transfer this patient to the intensive care unit Continue medications Obtain echocardiogram We'll continue to follow
--- NOTE | 2020-12-06 10:36 | P.HPIM ---
History of Present Illness H&P Date: 12/06/20 Chief Complaint: Confusion hyponatremia This is a 75-year-old female patient of Dr. Bansal. Patient presented to the ER with her knees with concerns of altered mental status changes. Per ER report patient had been on amoxicillin for sinus infection 2 days ago. Patient is a poor historian unable to recall recent events. Most history is obtained from ER records. It is stated that patient got fully vaccinated against Covid. Denies any recent trauma. Patient does have past medical history of atrial fibrillation, COPD, thyroid disorder, osteopenia, brain tumor anxiety. head CT was performed showing no acute intracranial abnormality. Chest x-ray performed showing mild to moderate PACs with component of interstitial edema. Upon arrival sodium 113. Patient was given normal saline and 100. Patient also treated with azithromycin and Rocephin ER for possible pneumonia. At this time cardiology, nephrology and pulmonary service is consulted. Continue normal sa line at 100. Rocephin resumed. Patient denies any acute complaints at this time. Patient denies chest pain or shortness breath. Patient denies nausea vomiting or diarrhea. Patient denies any urinary burning or frequency Review of Systems Please refer to HPI otherwise unremarkable Past Medical History Past Medical History: Atrial Fibrillation, Asthma, COPD, Musculoskeletal Disorder, Thyroid Disorder Additional Past Medical History / Comment(s): osteopenia, brain tumor which was removed, hep A at age 15, RLS, treated for seizures after brain tumor removed but no longer takes med, lower lt back pain History of Any Multi-Drug Resistant Organisms: ESBL Date of last positivie culture/infection: 08/17/18 MDRO Source:: ESBL URINE Past Surgical History: Cardiac Ablation Additional Past Surgical History / Comment(s): Cardiac AblationX2, Brain tumor removal, cataract Past Anesthesia/Blood Transfusion Reactions: No Reported Reaction Past Psychological History: Anxiety Smoking Status: Never smoker Past Alcohol Use History: None Reported Past Drug Use History: None Reported - Past Family History Father Brother(s) Family Medical History: Blood Disorder, COPD Medications and Allergies Home Medications Medication Instructions Recorded Confirmed Type Montelukast [Singulair] 10 mg PO DAILY 09/30/13 12/05/20 History Rivaroxaban [Xarelto] 20 mg PO PC-SUPPER 09/30/13 12/05/20 History Fluticasone Nasal [place] [Flonase 1 spr EA NOSTRIL BID 06/21/16 12/05/20 History Nasal [place]] Flecainide Acetate [Tambocor] 100 mg PO DAILY 01/23/17 12/05/20 History Loratadine 10 mg PO QAM 09/30/20 12/05/20 History Pravastatin Sodium [Pravachol] 20 mg PO HS 09/30/20 12/05/20 History Zolpidem [Ambien] 10 mg PO HS PRN 11/11/20 12/05/20 History Albuterol Inhaler [Ventolin Hfa 1 - 2 puff INHALATION RT-Q6H PRN 12/05/20 12/05/20 History Inhaler] Amoxicillin 500 mg PO Q12H 12/05/20 12/05/20 History Budesonide [Pulmicort] 0.5 mg INHALATION RT-BID 12/05/20 12/05/20 History Levothyroxine Sodium [Synthroid] 112 mcg PO DAILY 12/05/20 12/05/20 History Naproxen [Naprosyn] 500 mg PO BID PRN 12/05/20 12/05/20 History Allergies Allergy/AdvReac Type Severity Reaction Status Date / Time levofloxacin [From Levaquin] AdvReac Confusion/n Verified 12/05/20 21:19 ausea Physical Exam Vitals: Vital Signs Temp Pulse Pulse Resp BP BP Pulse Ox 12/06/20 08:48 100 12/06/20 08:32 100 12/06/20 08:00 98 F 115 H 16 134/78 98 12/06/20 03:45 98.4 F 113 H 16 127/62 98 12/06/20 02:00 70 17 12/05/20 23:27 97.8 F 70 17 166/88 98 12/05/20 21:06 97.8 F 70 17 166/88 98 12/05/20 21:00 98.7 F 66 1 L 138/70 100 12/05/20 20:24 68 16 149/78 12/05/20 18:14 97.9 F 60 16 134/68 100 Intake and Output 12/05/20 12/06/20 12/06/20 22:59 06:59 14:59 Output Total 300 120 Balance -300 -120 Output: Urine 300 120 Straight 300 Other: Weight 77.111 kg 76.5 kg Head normocephalic Neck supple Lungs clear to auscultation bilaterally no wheezing or crackles Heart irregular rate. Known atrial fibrillation Abdomen is soft nontender nondistended positive bowel sounds no hepatosplenomegaly Extremities no edema Neuro alert and orientated to 2. Intermittent confusion poor historian Results CBC & Chem 7: 12/06/20 07:08 12/06/20 07:08 Labs: Abnormal Lab Results - Last 24 Hours (Table) 12/05/20 12/05/20 12/05/20 Range/Units 18:56 18:56 18:56 WBC (3.8-10.6) k/uL Plt Count 124 L (150-450) k/uL Neutrophils # (1.3-7.7) k/uL Lymphocytes # 0.8 L (1.0-4.8) k/uL APTT 32.0 H (22.0-30.0) sec Sodium (137-145) mmol/L Chloride (98-107) mmol/L Plasma Lactic Acid [place] (0.7-2.0) mmol/L AST (14-36) U/L Total Protein (6.3-8.2) g/dL TSH (0.465-4.680) mIU/L Urine Ketones 1+ H (Negative) Urine Blood Trace H (Negative) Urine Mucus Rare H (None) /hpf 12/05/20 12/05/20 12/06/20 Range/Units 18:56 18:56 07:08 WBC 13.1 H (3.8-10.6) k/uL Plt Count (150-450) k/uL Neutrophils # 11.5 H (1.3-7.7) k/uL Lymphocytes # 0.7 L (1.0-4.8) k/uL APTT (22.0-30.0) sec Sodium 113 L* (137-145) mmol/L Chloride 81 L (98-107) mmol/L Plasma Lactic Acid [place] <0.5 L (0.7-2.0) mmol/L AST 42 H (14-36) U/L Total Protein (6.3-8.2) g/dL TSH (0.465-4.680) mIU/L Urine Ketones (Negative) Urine Blood (Negative) Urine Mucus (None) /hpf 12/06/20 12/06/20 Range/Units 07:08 07:08 WBC (3.8-10.6) k/uL Plt Count (150-450) k/uL Neutrophils # (1.3-7.7) k/uL Lymphocytes # (1.0-4.8) k/uL APTT (22.0-30.0) sec Sodium 115 L* (137-145) mmol/L Chloride 82 L (98-107) mmol/L Plasma Lactic Acid [place] (0.7-2.0) mmol/L AST 38 H (14-36) U/L Total Protein 6.2 L (6.3-8.2) g/dL TSH <0.015 L (0.465-4.680) mIU/L Urine Ketones (Negative) Urine Blood (Negative) Urine Mucus (None) /hpf Microbiology - Last 24 Hours (Table) 12/05/20 18:56 Group A Strep Throat Culture - Preliminary Throat Thrombosis Risk Factor Assmnt - Choose All That Apply Any of the Below Risk Factors Present?: Yes Each Factor Represents 1 point: Abnormal pulmonary function (COPD), Obesity (BMI >25) Other Risk Factors: Yes Each Risk Factor Represents 3 Points: Age 75 years or older Other congenital or acquired thrombophilia - If yes, enter type in comment: No Thrombosis Risk Factor Assessment Total Risk Factor Score: 5 Thrombosis Risk Factor Assessment Level: High Risk Assessment and Plan Assessment: 1. Altered mental status changes secondary to hyponatremia. 2. Atrial fibrillation with rapid ventricular response. Patient was started on Cardizem drip 3. Possible bilateral pneumonia. Pulmonary service is consulted. Patient maintained on IV antibiotics 4. Hypothyroidism. Upon admit TSH less than 0.015. Synthroid dose reduced to 100 5. Known atrial fibrillation. Maintained on anticoagulation with xarelto 6. History of COPD 7. History of anxiety DVT prophylaxis xarelto. GI prophylaxis Protonix Continue normal saline at 100 Nephrology services consulted Cardiology service is consulted Pulmonary service is consulted Continue IV antibiotics COVID-19 test ordered Time with Patient: Greater than 30 (Greater than 60% of the total time spent in counseling and coordination of care)
--- NOTE | 2020-12-06 10:45 | P.NPCON ---
History of Present Illness - Reason for Consult hyponatremia - History of Present Illness Reason for consultation: Hyponatremia History of present illness: The patient is a 75-year-old female seen in renal consultation for hyponatremia. Patient presented to the hospital with generalized weakness and confusion. She was noted to be in A. fib with RVR and is currently on Cardizem drip. Her renal function is at baseline. Creatinine is 0.64 today. Patient's sodium level was 113 on admission and she's been maintained on normal saline 100 mL an hour overnight. Sodium level this morning was up to 1:15. Patient is currently quite lethargic and sleepy. She falls asleep while talking. She does admit to taking Aleve 2-3 times a week. Her oral intake has been poor. No vomiting or diarrhea. Has been voiding. No hematuria or dysuria. Denies any diuretics. No history of diabetes. Vital signs are stable. General: The patient appeared well nourished and normally developed. HEENT: Head exam is unremarkable. Neck is without jugular venous distension. LUNGS: Breath sounds decreased. HEART: A. fib with RVR. ABDOMEN: Soft, no distention. EXTREMITITES: No edema. Past Medical History Past Medical History: Atrial Fibrillation, Asthma, COPD, Musculoskeletal Disorder, Thyroid Disorder Additional Past Medical History / Comment(s): osteopenia, brain tumor which was removed, hep A at age 15, RLS, treated for seizures after brain tumor removed but no longer takes med, lower lt back pain History of Any Multi-Drug Resistant Organisms: ESBL Date of last positivie culture/infection: 08/17/18 MDRO Source:: ESBL URINE Past Surgical History: Cardiac Ablation Additional Past Surgical History / Comment(s): Cardiac AblationX2, Brain tumor removal, cataract Past Anesthesia/Blood Transfusion Reactions: No Reported Reaction Past Psychological History: Anxiety Smoking Status: Never smoker Past Alcohol Use History: None Reported Past Drug Use History: None Reported - Past Family History Father Brother(s) Family Medical History: Blood Disorder, COPD Medications and Allergies Home Medications Medication Instructions Recorded Confirmed Type Montelukast [Singulair] 10 mg PO DAILY 09/30/13 12/05/20 History Rivaroxaban [Xarelto] 20 mg PO PC-SUPPER 09/30/13 12/05/20 History Fluticasone Nasal [place] [Flonase 1 spr EA NOSTRIL BID 06/21/16 12/05/20 History Nasal [place]] Flecainide Acetate [Tambocor] 100 mg PO DAILY 01/23/17 12/05/20 History Loratadine 10 mg PO QAM 09/30/20 12/05/20 History Pravastatin Sodium [Pravachol] 20 mg PO HS 09/30/20 12/05/20 History Zolpidem [Ambien] 10 mg PO HS PRN 11/11/20 12/05/20 History Albuterol Inhaler [Ventolin Hfa 1 - 2 puff INHALATION RT-Q6H PRN 12/05/20 12/05/20 History Inhaler] Amoxicillin 500 mg PO Q12H 12/05/20 12/05/20 History Budesonide [Pulmicort] 0.5 mg INHALATION RT-BID 12/05/20 12/05/20 History Levothyroxine Sodium [Synthroid] 112 mcg PO DAILY 12/05/20 12/05/20 History Naproxen [Naprosyn] 500 mg PO BID PRN 12/05/20 12/05/20 History Allergies Allergy/AdvReac Type Severity Reaction Status Date / Time levofloxacin [From Levaquin] AdvReac Confusion/n Verified 12/05/20 21:19 ausea Physical Exam Vitals: Vital Signs Temp Pulse Pulse Resp BP BP Pulse Ox 12/06/20 08:48 100 12/06/20 08:32 100 12/06/20 08:00 98 F 115 H 16 134/78 98 12/06/20 03:45 98.4 F 113 H 16 127/62 98 12/06/20 02:00 70 17 12/05/20 23:27 97.8 F 70 17 166/88 98 12/05/20 21:06 97.8 F 70 17 166/88 98 12/05/20 21:00 98.7 F 66 1 L 138/70 100 12/05/20 20:24 68 16 149/78 12/05/20 18:14 97.9 F 60 16 134/68 100 Intake and Output 12/05/20 12/06/20 12/06/20 22:59 06:59 14:59 Output Total 300 120 Balance -300 -120 Output: Urine 300 120 Straight 300 Other: Weight 77.111 kg 76.5 kg Results - Lab Results Most recent lab results Calcium 8.5 mg/dL (8.4-10.2) 12/06/20 07:08 12/06/20 07:08 12/06/20 07:08 Assessment and Plan Plan: Assessment: 1. Hypovolemic hyponatremia slowly improving with IV hydration. Was also taking Advil at home. Oral intake has been poor. Sodium level was 113 yesterday evening and is 1:15 this morning. TSH is low. 2. Generalized weakness and confusion secondary to hyponatremia. 3. A. fib with RVR maintain on Cardizem drip. Plan: Maintain normal saline. Repeat sodium level at noon. If no improvement, will start 3% saline. Patient will be transferred to the ICU. Check serum and urine osmolality and urine sodium level. Monitor sodium level closely. Avoid rapid correction. Case discussed with the projection welding machine operator. Thank you for the consultation. I will continue to follow the patient with you during her hospital stay.
[2020-12-06 11:05] LABS: Sodium 115 mmol/L (137-145)
[2020-12-06] MEDS: FLUTICASONE 50MCG/SPRAY NASAL 16GM EA NOSTRIL SCH ×2 (11:54→20:49)
[2020-12-06 11:56] LABS: Chol/HDL Ratio 2.04; Cholesterol 161 mg/dL (0-200); LDL Cholesterol,Calculated 70.8 mg/dL (0.0-131.0)
[2020-12-06 12:24] LABS: Glucose,Whole Blood 79 mg/dL (75-99)
[2020-12-06] MEDS: SODIUM CHLORIDE 3%(HYPERTONIC) 500 ML IV SCH (14:27)
[2020-12-06] MEDS: RIVAROXABAN 20 MG TAB PO SCH (18:40)
[2020-12-06] MEDS ORDERED: ZOLPIDEM 5 MG TAB PO PRN (21:00)
[2020-12-06] MEDS: PRAVASTATIN SODIUM 20 MG TAB PO SCH (21:04)
[2020-12-06 23:50] LABS: Appearance,Urine Clear (Clear); Bacteria,Urine Many /hpf; Bilirubin,Urine Negative (Negative); Blood,Urine Negative (Negative); Cellular Casts,Urine 1 /lpf (0); Color,Urine Yellow; Glucose,Urine (UA) Negative (Negative); Hyaline Casts,Urine 1 /lpf (0-2); Ketones,Urine 1+ (Negative); Leukocyte Esterase,Urine Negative (Negative); Mucus,Urine Occasional /hpf; Nitrite,Urine Positive (Negative); PH, Urine 5.5 (5.0-8.0); Protein,Urine Negative (Negative); RBC,Urine 3 /hpf (0-5); Specific Gravity,Urine 1.012 (1.001-1.035); Squamous Epithelial Cell,Urine <1 /hpf (0-4); Urobilinogen,Urine <2.0 mg/dL (<2.0); WBC,Urine 2 /hpf (0-5)
[2020-12-07 03:42] LABS: Basophils % (A) 0 %; Eosinophils # (A) 0.1 k/uL (0-0.7); Eosinophils % (A) 1 %; HCT 38.3 % (34.0-46.0); HGB 12.8 gm/dL (11.4-16.0); Lymphocytes # (A) 0.5 k/uL (1.0-4.8); Lymphocytes % (A) 4 %; MCH 30.8 pg (25.0-35.0); MCHC 33.3 g/dL (31.0-37.0); MCV 92.6 fL (80.0-100.0); Mean Platelet Volume 7.7; Monocytes # (A) 0.7 k/uL (0-1.0); Monocytes % (A) 6 %; Neutrophils # (A) 10.2 k/uL (1.3-7.7); Neutrophils % (A) 87 %; Platelet Count 147 k/uL (150-450); RBC 4.14 m/uL (3.80-5.40); RDW 14.8 % (11.5-15.5); WBC 11.7 k/uL (3.8-10.6)
[2020-12-07 04:20] LABS: ALT 24 U/L (4-34); AST 51 U/L (14-36); African American GFR (CKD) >90 (>60 ml/min/1.73 sqM); Albumin 3.1 g/dL (3.5-5.0); Alkaline Phosphatase 100 U/L (38-126); Anion Gap 9 mmol/L; Blood Urea Nitrogen 19 mg/dL (7-17); Calcium 7.9 mg/dL (8.4-10.2); Carbon Dioxide 22 mmol/L (22-30); Chloride 92 mmol/L (98-107); Glucose 53 mg/dL (74-99); Non-African American GFR(CKD) 88 (>60 ml/min/1.73 sqM); Potassium 3.6 mmol/L (3.5-5.1); Sodium 123 mmol/L (137-145); Total Bilirubin 0.6 mg/dL (0.2-1.3); Total Protein 5.6 g/dL (6.3-8.2)
[2020-12-07] MEDS ORDERED: Potassium Replacement Protocol 1 EACH MISC MISCELLANE PRN (04:49)
[2020-12-07] MEDS ORDERED: DEXTROSE 50% SYRINGE 50 ML IVP STA (04:50)
[2020-12-07] MEDS: POTASSIUM CHLORIDE 10 MEQ in WATER FOR INJECTION 1 100ML.BAG IVPB SCH ×2 (04:56→06:34)
[2020-12-07 05:05] LABS: Glucose,Whole Blood 51 mg/dL (75-99)
[2020-12-07 05:40] LABS: Glucose,Whole Blood 150 mg/dL (75-99)
[2020-12-07] MEDS: LEVOTHYROXINE 100 MCG TAB PO SCH (06:34)
[2020-12-07] MEDS: BUDESONIDE 0.5 MG/2 ML NEBU INHALATION SCH ×2 (07:21→18:50)
[2020-12-07] MEDS: ALBUTEROL NEBULIZED 2.5 MG/3 ML INHALATION PRN ×2 (07:22→18:50)
[2020-12-07] MEDS ORDERED: PANTOPRAZOLE 40 MG TABLET PO SCH (07:30)
[2020-12-07] MEDS: LORATADINE 10 MG TAB PO SCH (07:42)
[2020-12-07] MEDS: MONTELUKAST 10 MG TAB PO SCH (07:42)
[2020-12-07] MEDS: FLECAINIDE 50 MG TAB PO SCH (07:43)
[2020-12-07] MEDS: METOPROLOL TARTRATE 25 MG TAB PO SCH (08:51)
[2020-12-07] MEDS: PANTOPRAZOLE 40 MG/10 ML VIAL IVP SCH (08:51)
[2020-12-07] MEDS ORDERED: METOPROLOL TARTRATE 25 MG TAB PO SCH (09:00)
[2020-12-07] MEDS ORDERED: METOPROLOL TARTRATE 25 MG TAB PO ONE (09:15)
[2020-12-07 09:27] LABS: Sodium 123 mmol/L (137-145)
[2020-12-07] MEDS ORDERED: SODIUM CHLORIDE TAB 1 GM TAB PO STA (09:59)
[2020-12-07 10:32] LABS: T4, Free (Free Thyroxine) 2.01 ng/dL (0.78-2.19)
[2020-12-07] MEDS: FLUTICASONE 50MCG/SPRAY NASAL 16GM EA NOSTRIL SCH ×2 (10:44→21:14)
--- NOTE | 2020-12-07 11:16 | P.PN ---
Subjective This is a 75-year-old female with a past medical history significant for paroxysmal atrial fibrillation and atrial flutter with previous ablation, hy pothyroidism, and COPD. Patient follows in the office with Dr. Belrtan. We have been asked to see the patient in consultation for Magaly wahl with RVR. Patient was brought into the hospital 12/05/2020 by her niece secondary to generalized weakness and confusion. Apparently the patient was started on antibiotics a few days ago for a sinus infection. The patient was found to be severely hyponatremic with a sodium of 113. She was admitted to the ICU. EKG reveals sinus mechanism on admission. She was found to be in A fib wtih RVR overnight. She was started on a Cardizem drip which is currently infusing at 5 mg an hour. DIAGNOSTICS: Most recent echocardiogram obtained in 2017 reveals ejection fraction 55%. Mild tricuspid regurgitation. Patient underwent Lexiscan stress test in 2016 revealing moderate reversible defect involving the apical lateral wall distribution of the left circumflex coronary artery indicative of ischemia. Patient underwent cardiac catheterization in December 2016 revealing normal coronary arteries and normal end-diastolic pressure. Current home cardiac medications include Xarelto 20 mg daily and Flecainide 100 mg daily 12/07/2020 Patient examined at the bedside. She is alert and oriented x 3. She is currently in sinus mechanism. She endorses feeling weak and tired. She denies chest pain or pressure, shortness of breath, dizziness or lightheadedness, or palpitations. Laboratory data: WBC 11.7, troponin 8, platelets 47, sodium 13, P 19, serum creatinine 0.6, TSH low, free T4 within normal limits. Patient maintained on a Cardizem drip 5 mg per hour, recommended 100 mg daily, metoprolol tartrate 25 mg twice a day, Xarelto 20 mg nightly. PHYSICAL EXAM: VITAL SIGNS: Blood pressure 106/63, heart rate 90, afebrile, maintaining oxygen saturation is 96% on 2 L nasal cannula GENERAL: Well-developed in no acute distress. HEENT: Head is normocephalic. Neck supple. No JVD or thyromegaly LUNGS: Respirations even and unlabored. Lungs essentially clear to auscultation bilaterally. HEART: Regular rate and rhythm. S1 and S2 heard. ABDOMEN: Soft. Nondistended. Nontender. EXTREMITIES: Normal range of motion. No clubbing or cyanosis. Peripheral pulses intact. No lower extremity edema NEUROLOGIC: She is alert, oriented x 3. ASSESSMENT: Generalized weakness Severe hyponatremia - slowly improving with IV fluids Paroxysmal atrial fibrillation, typical a flutter with RVR - on Eliquis - now in sinus mechanism History of cardiac ablation COPD Hypothyroidism PLAN: Echocardiogram ordered- will follow up on results Increase metoprolol tartrate to 50mg BID Stop IV Cardizem Continue anticoagulation with Xarelto Continue flecainide 100mg daily Continue telemetry monitoring Further recommendations pending patient's course Nurse practitioner note has been reviewed by physician. Signing provider agrees with the documented findings, assessment, and plan of care. Objective - Vital Signs Vital signs: Vital Signs Temp 97.7 F 12/07/20 08:00 Pulse 75 12/07/20 10:00 Resp 17 12/07/20 10:00 BP 106/63 12/07/20 09:00 Pulse Ox 96 12/07/20 10:00 Intake & Output 12/06/20 12/07/20 12/07/20 18:59 06:59 18:59 Intake Total 300 250 400 Output Total 100 1410 220 Balance 200 -1160 180 Weight 81.7 kg 81.7 kg Intake: IV 300 250 200 Potassium Chloride 10 meq 100 In Water For Injection 1 100ml.bag @ 100 mls/hr IVPB Q1H [facility] Rx#: [id number] Sodium Chloride 0.9% 1, 200 000 ml @ 100 mls/hr IV . Q10H [facility] Rx#:[id number] Sodium Chloride 3%( 100 250 100 Hypertonic) 500 ml @ 25 mls/hr IV .Q20H [facility] Rx#: [id number] Oral 200 Output: Urine 100 1410 220 Other: Voiding Method External Catheter Indwelling Catheter - Labs CBC & Chem 7: 12/07/20 03:28 12/07/20 09:08 Labs: Abnormal Lab Results - Last 24 Hours (Table) 12/06/20 12/06/20 12/06/20 Range/Units 07:08 10:41 15:03 WBC (3.8-10.6) k/uL Plt Count (150-450) k/uL Neutrophils # (1.3-7.7) k/uL Lymphocytes # (1.0-4.8) k/uL Sodium 115 L* 117 L* (137-145) mmol/L Chloride (98-107) mmol/L BUN (7-17) mg/dL Glucose (74-99) mg/dL POC Glucose (mg/dL) (75-99) mg/dL Osmolality 238 L* (280-301) mosm/kg Calcium (8.4-10.2) mg/dL AST (14-36) U/L Total Protein (6.3-8.2) g/dL Albumin (3.5-5.0) g/dL HDL Cholesterol 79.0 H (40.0-60.0) mg/dL TSH <0.015 L (0.465-4.680) mIU/L Urine Ketones (Negative) Urine Nitrite (Negative) Urine Bacteria (None) /hpf Urine Mucus (None) /hpf 12/06/20 12/06/20 12/06/20 Range/Units 17:57 20:59 23:40 WBC (3.8-10.6) k/uL Plt Count (150-450) k/uL Neutrophils # (1.3-7.7) k/uL Lymphocytes # (1.0-4.8) k/uL Sodium 117 L* 119 L* (137-145) mmol/L Chloride (98-107) mmol/L BUN (7-17) mg/dL Glucose (74-99) mg/dL POC Glucose (mg/dL) (75-99) mg/dL Osmolality (280-301) mosm/kg Calcium (8.4-10.2) mg/dL AST (14-36) U/L Total Protein (6.3-8.2) g/dL Albumin (3.5-5.0) g/dL HDL Cholesterol (40.0-60.0) mg/dL TSH (0.465-4.680) mIU/L Urine Ketones 1+ H (Negative) Urine Nitrite Positive H (Negative) Urine Bacteria Many H (None) /hpf Urine Mucus Occasional H (None) /hpf 12/06/20 12/07/20 12/07/20 Range/Units 23:53 01:56 03:28 WBC 11.7 H (3.8-10.6) k/uL Plt Count 147 L (150-450) k/uL Neutrophils # 10.2 H (1.3-7.7) k/uL Lymphocytes # 0.5 L (1.0-4.8) k/uL Sodium 120 L 121 L (137-145) mmol/L Chloride (98-107) mmol/L BUN (7-17) mg/dL Glucose (74-99) mg/dL POC Glucose (mg/dL) (75-99) mg/dL Osmolality (280-301) mosm/kg Calcium (8.4-10.2) mg/dL AST (14-36) U/L Total Protein (6.3-8.2) g/dL Albumin (3.5-5.0) g/dL HDL Cholesterol (40.0-60.0) mg/dL TSH (0.465-4.680) mIU/L Urine Ketones (Negative) Urine Nitrite (Negative) Urine Bacteria (None) /hpf Urine Mucus (None) /hpf 12/07/20 12/07/20 12/07/20 Range/Units 03:28 04:53 05:39 WBC (3.8-10.6) k/uL Plt Count (150-450) k/uL Neutrophils # (1.3-7.7) k/uL Lymphocytes # (1.0-4.8) k/uL Sodium 123 L (137-145) mmol/L Chloride 92 L (98-107) mmol/L BUN 19 H (7-17) mg/dL Glucose 53 L (74-99) mg/dL POC Glucose (mg/dL) 51 L 150 H (75-99) mg/dL Osmolality (280-301) mosm/kg Calcium 7.9 L (8.4-10.2) mg/dL AST 51 H (14-36) U/L Total Protein 5.6 L (6.3-8.2) g/dL Albumin 3.1 L (3.5-5.0) g/dL HDL Cholesterol (40.0-60.0) mg/dL TSH (0.465-4.680) mIU/L Urine Ketones (Negative) Urine Nitrite (Negative) Urine Bacteria (None) /hpf Urine Mucus (None) /hpf 12/07/20 12/07/20 Range/Units 05:56 09:08 WBC (3.8-10.6) k/uL Plt Count (150-450) k/uL Neutrophils # (1.3-7.7) k/uL Lymphocytes # (1.0-4.8) k/uL Sodium 121 L 123 L (137-145) mmol/L Chloride (98-107) mmol/L BUN (7-17) mg/dL Glucose (74-99) mg/dL POC Glucose (mg/dL) (75-99) mg/dL Osmolality (280-301) mosm/kg Calcium (8.4-10.2) mg/dL AST (14-36) U/L Total Protein (6.3-8.2) g/dL Albumin (3.5-5.0) g/dL HDL Cholesterol (40.0-60.0) mg/dL TSH <0.015 L (0.465-4.680) mIU/L Urine Ketones (Negative) Urine Nitrite (Negative) Urine Bacteria (None) /hpf Urine Mucus (None) /hpf Microbiology - Last 24 Hours (Table) 12/05/20 18:56 Group A Strep Throat Culture - Final Throat 12/05/20 18:56 Blood Culture - Preliminary Blood No Growth after 24 hours
--- NOTE | 2020-12-07 13:22 | P.PN ---
Subjective Progress Note Date: 12/07/20 Principal diagnosis: Acute hyponatremia and acute metabolic encephalopathy I was consulted on this patient regarding severe hyponatremia, lethargy, diminished level of consciousness and arousal in addition to COPD. The patient is known to have COPD, paroxysmal atrial fibrillation and she has undergone previous ablation and she has history of hypothyroidism. No history of CHF. Her last ejection fraction from 2018 was 55% and the patient has had previous cardiac catheterization in 2017 showing normal coronaries and normal left ventricle end-diastolic pressure. She came into the hospital and she was found to be hyponatremic sodium level wasn't 113. The patient was given normal saline today to 100 mL an hour and his sodium level is at 115. Limited improvement in her lethargy compared to yesterday. She is arousable and she is able to answer questions for now. No angina. No palpitations. No hemodynamic instability. Chest x-ray showing some mild interstitial edema. Nevertheless, the patient is on oxygen at 2 L and there are no signs of any respiratory distress lungs a essentially clear this point in time.. She does not take any form of thiazides. No diarrhea. No other medications that can contribute to hyponatremia. Overnight, the patient went into a chair fibrillation with rapid ventricular response. The patient is currently on 5 mg an hour of Cardizem drip. Patient was reevaluated today on 12/07/2020, patient was admitted to the ICU with hyponatremia, sodium of 113 on admission. She also had A. fib with RVR. Patient is on 2 L nasal cannula, O2 sats is 95%. She is in atrial fibrillation with a rate of 104. She did receive 3% saline at 25 mL per hour. She remains on Cardizem at 5 mg per hour. This morning her sodium is 121. 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 Patient is also being followed by nephrology, felt that her hyponatremia is hypovolemic in nature. And improving with IV hydration. And patient-sahni, the patient is also improving. Cortisol level today is 7. Relatively normal. During my evaluation, the patient had no complaints, and she was not in any distress. Objective - Vital Signs Vital signs: Vital Signs Temp 97.7 F 12/07/20 08:00 Pulse 52 L 12/07/20 13:00 Resp 14 12/07/20 13:00 BP 85/47 12/07/20 13:00 Pulse Ox 97 12/07/20 13:00 Intake & Output 12/06/20 12/07/20 12/07/20 18:59 06:59 18:59 Intake Total 300 250 600 Output Total 100 1410 310 Balance 200 -1160 290 Weight 81.7 kg 81.7 kg Intake: IV 300 250 200 Potassium Chloride 10 meq 100 In Water For Injection 1 100ml.bag @ 100 mls/hr IVPB Q1H [facility] Rx#: [id number] Sodium Chloride 0.9% 1, 200 000 ml @ 100 mls/hr IV . Q10H [facility] Rx#:[id number] Sodium Chloride 3%( 100 250 100 Hypertonic) 500 ml @ 25 mls/hr IV .Q20H [facility] Rx#: [id number] Oral 400 Output: Urine 100 1410 310 Other: Voiding Method External Catheter Indwelling Catheter - Exam Physical Exam: Revealed 75-year-old female in no distress. Head: Atraumatic, normocephalic. HEENT:[Neck is supple.] [No neck masses.] [No thyromegaly.] [No JVD.] Dry mucous membranes. Chest: [Clear throughout, no crackles, no rhonchi, no wheezes.] Cardiac Exam: [Normal S1 and S2, no S3 gallop, no murmur.] Abdomen: [Soft, nontender, no megaly, no rebound, no guarding, normal bowel sounds.] Extremities: [No clubbing, no edema, no cyanosis.] Neurological Exam: [No focal neurologic deficit.] Alert oriented 3. Psychiatric: Normal mood affect and normal mental status examination. Skin: No rashes. - Labs CBC & Chem 7: 12/07/20 03:28 12/07/20 09:08 Labs: Abnormal Lab Results - Last 24 Hours (Table) 12/06/20 12/06/20 12/06/20 Range/Units 15:03 17:57 20:59 WBC (3.8-10.6) k/uL Plt Count (150-450) k/uL Neutrophils # (1.3-7.7) k/uL Lymphocytes # (1.0-4.8) k/uL Sodium 117 L* 117 L* 119 L* (137-145) mmol/L Chloride (98-107) mmol/L BUN (7-17) mg/dL Glucose (74-99) mg/dL POC Glucose (mg/dL) (75-99) mg/dL Calcium (8.4-10.2) mg/dL AST (14-36) U/L Total Protein (6.3-8.2) g/dL Albumin (3.5-5.0) g/dL TSH (0.465-4.680) mIU/L Urine Ketones (Negative) Urine Nitrite (Negative) Urine Bacteria (None) /hpf Urine Mucus (None) /hpf 12/06/20 12/06/20 12/07/20 Range/Units 23:40 23:53 01:56 WBC (3.8-10.6) k/uL Plt Count (150-450) k/uL Neutrophils # (1.3-7.7) k/uL Lymphocytes # (1.0-4.8) k/uL Sodium 120 L 121 L (137-145) mmol/L Chloride (98-107) mmol/L BUN (7-17) mg/dL Glucose (74-99) mg/dL POC Glucose (mg/dL) (75-99) mg/dL Calcium (8.4-10.2) mg/dL AST (14-36) U/L Total Protein (6.3-8.2) g/dL Albumin (3.5-5.0) g/dL TSH (0.465-4.680) mIU/L Urine Ketones 1+ H (Negative) Urine Nitrite Positive H (Negative) Urine Bacteria Many H (None) /hpf Urine Mucus Occasional H (None) /hpf 12/07/20 12/07/20 12/07/20 Range/Units 03:28 03:28 04:53 WBC 11.7 H (3.8-10.6) k/uL Plt Count 147 L (150-450) k/uL Neutrophils # 10.2 H (1.3-7.7) k/uL Lymphocytes # 0.5 L (1.0-4.8) k/uL Sodium 123 L (137-145) mmol/L Chloride 92 L (98-107) mmol/L BUN 19 H (7-17) mg/dL Glucose 53 L (74-99) mg/dL POC Glucose (mg/dL) 51 L (75-99) mg/dL Calcium 7.9 L (8.4-10.2) mg/dL AST 51 H (14-36) U/L Total Protein 5.6 L (6.3-8.2) g/dL Albumin 3.1 L (3.5-5.0) g/dL TSH (0.465-4.680) mIU/L Urine Ketones (Negative) Urine Nitrite (Negative) Urine Bacteria (None) /hpf Urine Mucus (None) /hpf 12/07/20 12/07/20 12/07/20 Range/Units 05:39 05:56 09:08 WBC (3.8-10.6) k/uL Plt Count (150-450) k/uL Neutrophils # (1.3-7.7) k/uL Lymphocytes # (1.0-4.8) k/uL Sodium 121 L 123 L (137-145) mmol/L Chloride (98-107) mmol/L BUN (7-17) mg/dL Glucose (74-99) mg/dL POC Glucose (mg/dL) 150 H (75-99) mg/dL Calcium (8.4-10.2) mg/dL AST (14-36) U/L Total Protein (6.3-8.2) g/dL Albumin (3.5-5.0) g/dL TSH <0.015 L (0.465-4.680) mIU/L Urine Ketones (Negative) Urine Nitrite (Negative) Urine Bacteria (None) /hpf Urine Mucus (None) /hpf Microbiology - Last 24 Hours (Table) 12/05/20 18:56 Group A Strep Throat Culture - Final Throat 12/05/20 18:56 Blood Culture - Preliminary Blood No Growth after 24 hours Assessment and Plan Assessment: Hypovolemic hyponatremia Acute metabolic encephalopathy secondary to hyponatremia Generalized weakness secondary to hyponatremia History of hypothyroidism. History of COPD, presently inactive. History of brain tumor, resected. History of hepatitis A. History of restless leg syndrome. History of chronic pain syndrome. Recommendation: Continue IV fluids and cautious hydration. Continue to monitor sodium every 4 hours. Transition hypertonic saline to normal saline. Continue Cardizem drip. Serum cortisol level and thyroid profile was relatively normal. Continue to monitor the patient in the ICU for the next 24 hours, Possibly transfer the patient to a cardiac floor in the next 24 hours. Continue GI and DVT prophylaxis. We'll continue to follow Time with Patient: Less than 30
--- NOTE | 2020-12-07 17:28 | PN ---
PROGRESS NOTE Patient is seen for followup for hyponatremia. Her serum sodium was 113. Initially patient was maintained on 3% saline which was discontinued and patient was restarted on 3% saline. Urine osmolality was 497. This morning serum sodium was at 123 and it had declined to 121 and repeat sodium was again at 123. The patient denies any significant symptoms. She is awake, alert, oriented x3. No complaints of lightheadedness, numbness, dizziness. No weakness. PHYSICAL EXAMINATION: Blood pressure is 85/47, heart rate 52 per minute, she is afebrile. Examination of the heart S1, S2. Examination of the lungs, decreased breath sounds at the bases. Abdomen is soft, nontender. Examination lower extremities shows no significant edema. [employer] exam grossly intact. LAB: Show sodium of 123 from 121 this morning. Cortisol level was on the lower side at 7 and TSH was significantly low at less than 0.015. ASSESSMENT: 1. 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 I will discontinue the 3% saline. The patient's blood pressure is on the lower side. I will add sodium chloride tabs and repeat sodium again in about 4 hours. Cortisone is on the lower side with low blood pressure, therefore, we need to rule out adrenal insufficiency as well. Cortrosyn stimulation test should be performed. 2. Low TSH, possibly related to decreased TSH production from the pituitary gland as T4 was not elevated and patient is maintained on supplementation. PLAN: Start sodium chloride tabs. Discontinue 3% saline and consider decreasing Lopressor given the bradycardia and hypotension. MMODL / IJN: [id number] /
--- NOTE | 2020-12-07 17:29 | P.PN ---
Subjective Progress Note Date: 12/07/20 This is a 75-year-old female patient of Dr. Bansal. Patient presented to the ER with her knees with concerns of altered mental status changes. Per ER report patient had been on amoxicillin for sinus infection 2 days ago. Patient is a poor historian unable to recall recent events. Most history is obtained from ER records. It is stated that patient got fully vaccinated against Covid. Denies any recent trauma. Patient does have past medical history of atrial fibrillation, COPD, thyroid disorder, osteopenia, brain tumor anxiety. head CT was performed showing no acute intracranial abnormality. Chest x-ray performed showing mild to moderate PACs with component of interstitial edema. Upon arri sunny sodium 113. Patient was given normal saline and 100. Patient also treated with azithromycin and Rocephin ER for possible pneumonia. At this time cardiology, nephrology and pulmonary service is consulted. Continue normal saline at 100. Rocephin resumed. Patient denies any acute complaints at this time. Patient denies chest pain or shortness breath. Patient denies nausea vomiting or diarrhea. Patient denies any urinary burning or frequency On 12/07/2020 patient was seen and examined in the ICU she is alert responsive answering questions appropriately at this time, she is still having episodes of confusion, sodium has improved up to 125 today, she is denying any complaints there is no fever or chills no headache or dizziness no chest pain no shortness of breath no cough no nausea or vomiting no abdominal pain no diarrhea and no urinary symptoms Objective - Vital Signs Vital signs: Vital Signs Temp 97.7 F 12/07/20 08:00 Pulse 89 12/07/20 08:00 Resp 9 L 12/07/20 08:00 BP 123/73 12/07/20 08:00 Pulse Ox 95 12/07/20 08:00 Intake & Output 12/06/20 12/07/20 12/07/20 18:59 06:59 18:59 Intake Total 300 250 150 Output Total 100 1410 140 Balance 200 -1160 10 Weight 81.7 kg Intake: IV 300 250 150 Potassium Chloride 10 meq 100 In Water For Injection 1 100ml.bag @ 100 mls/hr IVPB Q1H [facility] Rx#: [id number] Sodium Chloride 0.9% 1, 200 000 ml @ 100 mls/hr IV . Q10H [facility] Rx#:[id number] Sodium Chloride 3%( 100 250 50 Hypertonic) 500 ml @ 25 mls/hr IV .Q20H [facility] Rx#: [id number] Output: Urine 100 1410 140 Other: Voiding Method External Catheter Indwelling Catheter - Exam Head normocephalic and atraumatic Neck supple no JVD no goiter no lymphadenopathy Lungs clear to auscultation bilaterally no wheezing or crackles Heart irregular rate. Known atrial fibrillation Abdomen is soft nontender nondistended positive bowel sounds no hepatosplenomegaly Extremities no edema Neuro alert and orientated to 2. Intermittent confusion poor historian - Labs CBC & Chem 7: 12/07/20 03:28 12/07/20 12:41 Labs: Abnormal Lab Results - Last 24 Hours (Table) 12/06/20 12/06/20 12/06/20 Range/Units 07:08 10:41 15:03 WBC (3.8-10.6) k/uL Plt Count (150-450) k/uL Neutrophils # (1.3-7.7) k/uL Lymphocytes # (1.0-4.8) k/uL Sodium 115 L* 117 L* (137-145) mmol/L Chloride (98-107) mmol/L BUN (7-17) mg/dL Glucose (74-99) mg/dL POC Glucose (mg/dL) (75-99) mg/dL Osmolality 238 L* (280-301) mosm/kg Calcium (8.4-10.2) mg/dL AST (14-36) U/L Total Protein (6.3-8.2) g/dL Albumin (3.5-5.0) g/dL HDL Cholesterol 79.0 H (40.0-60.0) mg/dL TSH <0.015 L (0.465-4.680) mIU/L Urine Ketones (Negative) Urine Nitrite (Negative) Urine Bacteria (None) /hpf Urine Mucus (None) /hpf 12/06/20 12/06/20 12/06/20 Range/Units 17:57 20:59 23:40 WBC (3.8-10.6) k/uL Plt Count (150-450) k/uL Neutrophils # (1.3-7.7) k/uL Lymphocytes # (1.0-4.8) k/uL Sodium 117 L* 119 L* (137-145) mmol/L Chloride (98-107) mmol/L BUN (7-17) mg/dL Glucose (74-99) mg/dL POC Glucose (mg/dL) (75-99) mg/dL Osmolality (280-301) mosm/kg Calcium (8.4-10.2) mg/dL AST (14-36) U/L Total Protein (6.3-8.2) g/dL Albumin (3.5-5.0) g/dL HDL Cholesterol (40.0-60.0) mg/dL TSH (0.465-4.680) mIU/L Urine Ketones 1+ H (Negative) Urine Nitrite Positive H (Negative) Urine Bacteria Many H (None) /hpf Urine Mucus Occasional H (None) /hpf 12/06/20 12/07/20 12/07/20 Range/Units 23:53 01:56 03:28 WBC 11.7 H (3.8-10.6) k/uL Plt Count 147 L (150-450) k/uL Neutrophils # 10.2 H (1.3-7.7) k/uL Lymphocytes # 0.5 L (1.0-4.8) k/uL Sodium 120 L 121 L (137-145) mmol/L Chloride (98-107) mmol/L BUN (7-17) mg/dL Glucose (74-99) mg/dL POC Glucose (mg/dL) (75-99) mg/dL Osmolality (280-301) mosm/kg Calcium (8.4-10.2) mg/dL AST (14-36) U/L Total Protein (6.3-8.2) g/dL Albumin (3.5-5.0) g/dL HDL Cholesterol (40.0-60.0) mg/dL TSH (0.465-4.680) mIU/L Urine Ketones (Negative) Urine Nitrite (Negative) Urine Bacteria (None) /hpf Urine Mucus (None) /hpf 12/07/20 12/07/20 12/07/20 Range/Units 03:28 04:53 05:39 WBC (3.8-10.6) k/uL Plt Count (150-450) k/uL Neutrophils # (1.3-7.7) k/uL Lymphocytes # (1.0-4.8) k/uL Sodium 123 L (137-145) mmol/L Chloride 92 L (98-107) mmol/L BUN 19 H (7-17) mg/dL Glucose 53 L (74-99) mg/dL POC Glucose (mg/dL) 51 L 150 H (75-99) mg/dL Osmolality (280-301) mosm/kg Calcium 7.9 L (8.4-10.2) mg/dL AST 51 H (14-36) U/L Total Protein 5.6 L (6.3-8.2) g/dL Albumin 3.1 L (3.5-5.0) g/dL HDL Cholesterol (40.0-60.0) mg/dL TSH (0.465-4.680) mIU/L Urine Ketones (Negative) Urine Nitrite (Negative) Urine Bacteria (None) /hpf Urine Mucus (None) /hpf 12/07/20 Range/Units 05:56 WBC (3.8-10.6) k/uL Plt Count (150-450) k/uL Neutrophils # (1.3-7.7) k/uL Lymphocytes # (1.0-4.8) k/uL Sodium 121 L (137-145) mmol/L Chloride (98-107) mmol/L BUN (7-17) mg/dL Glucose (74-99) mg/dL POC Glucose (mg/dL) (75-99) mg/dL Osmolality (280-301) mosm/kg Calcium (8.4-10.2) mg/dL AST (14-36) U/L Total Protein (6.3-8.2) g/dL Albumin (3.5-5.0) g/dL HDL Cholesterol (40.0-60.0) mg/dL TSH (0.465-4.680) mIU/L Urine Ketones (Negative) Urine Nitrite (Negative) Urine Bacteria (None) /hpf Urine Mucus (None) /hpf Microbiology - Last 24 Hours (Table) 12/05/20 18:56 Group A Strep Throat Culture - Final Throat 12/05/20 18:56 Blood Culture - Preliminary Blood No Growth after 24 hours Assessment and Plan Assessment: 1. Altered mental status changes secondary to hyponatremia. Sodium improving today up to 125 2. Atrial fibrillation with rapid ventricular response. Patient was started on Cardizem drip 3. Possible bilateral pneumonia. Pulmonary service is consulted. Patient maintained on IV antibiotics 4. Hypothyroidism. Upon admit TSH less than 0.015. Synthroid dose reduced to 100 5. Known atrial fibrillation. Maintained on anticoagulation with xarelto 6. History of COPD 7. History of anxiety DVT prophylaxis xarelto. GI prophylaxis Protonix Continue normal saline at 100 Nephrology services consulted Cardiology service is consulted Pulmonary service is consulted Continue IV antibiotics COVID-19 test ordered
[2020-12-07] MEDS: RIVAROXABAN 20 MG TAB PO SCH (18:02)
--- NOTE | 2020-12-07 18:44 | ECHOF ---
Referral Reason:LV function MEASUREMENTS -------- HEIGHT: 167.6 cm WEIGHT: 81.6 kg BP: 113/69 IVSd: 0.8 cm (0.6 - 1.1) LVIDd: 2.6 cm (3.9 - 5.3) LVPWd: 1.0 cm (0.6 - 1.1) EDV(Teich): 25 ml IVSs: 1.2 cm LVIDs: 2.2 cm LVPWs: 1.2 cm %IVS Thck: 52 % ESV(Teich): 15 ml EF(Teich): 39 % %FS: 18 % SV(Teich): 10 ml LA Diam: 2.8 cm (2.7 - 3.8) RVIDd: 2.5 cm (< 3.3) LALs A4C: 4.5 cm LAAs A4C: 16.7 cm LAESV A-L A4C: 52 ml LAESV MOD A4C: 48 ml LALs A2C: 4.1 cm LAAs A2C: 10.7 cm LAESV A-L A2C: 24 ml LAESV MOD A2C: 23 ml LAESV(A-L): 37 ml LAESV Index (A-L): 19.37 ml/m Ao Diam: 3.0 cm (2.0 - 3.7) AV Cusp: 1.6 cm (1.5 - 2.6) EPSS: 0.4 cm MV E John: 0.83 m/s MV E VTI: 16.6 cm MV DecT: 247 ms MV PHT: 74 ms MVA By PHT: 3.0 cm AV Vmax: 1.04 m/s AV maxP.40 mmHg TR Vmax: 2.43 m/s TR maxP.65 mmHg RAP: 5.00 mmHg RVSP: 28.65 mmHg MV EF SLOPE: 103.21 mm/s (70 - 150) MV EXCURSION: 19.52 mm (> 18.000) FINDINGS -------- This was a technically adequate study. The left ventricular size is normal. Left ventricular wall thickness is normal. Overall left vent ricular systolic function is normal with, an EF between 60 - 65 %. The right ventricle is normal in size. Normal LA size by volume 22+/-6 ml/m2. The right atrium is normal in size. Interatrial and interventricular septum intact. The aortic valve is trileaflet, and appears structurally normal. No aortic stenosis or regurgitation. Mild mitral annular calcification present. Mild tricuspid regurgitation present. Right ventricular systolic pressure is normal at < 35 mmHg. There is no pulmonic regurgitation present. The aortic root size is normal. Normal inferior vena cava with normal inspiratory collapse consistent with estimated right atrial pre ssure of 5 mmHg. There is no pericardial effusion. CONCLUSIONS -------- 1. The left ventricular size is normal. 2. Left ventricular wall thickness is normal. 3. Overall left ventricular systolic function is normal with, an EF between 60 - 65 %. 4. The aortic valve is trileaflet, and appears structurally normal. No aortic stenosis or regurgitati on. 5. Mild tricuspid regurgitation present. 6. There is no pericardial effusion. ROCKET [employer]SEMBLY OPERATOR: Zoya Medellin RDCS
[2020-12-07] MEDS: SODIUM CHLORIDE 3%(HYPERTONIC) 500 ML IV SCH (20:07)
[2020-12-07] MEDS: METOPROLOL TARTRATE 50 MG TAB PO SCH (21:05)
[2020-12-07] MEDS: SODIUM CHLORIDE TAB 1 GM TAB PO SCH (21:13)
[2020-12-07] MEDS: PRAVASTATIN SODIUM 20 MG TAB PO SCH (21:14)
[2020-12-08 04:06] LABS: Basophils % (A) 0 %; Eosinophils # (A) 0.2 k/uL (0-0.7); Eosinophils % (A) 2 %; HCT 34.6 % (34.0-46.0); HGB 11.9 gm/dL (11.4-16.0); Lymphocytes # (A) 0.8 k/uL (1.0-4.8); Lymphocytes % (A) 8 %; MCH 31.8 pg (25.0-35.0); MCHC 34.4 g/dL (31.0-37.0); MCV 92.5 fL (80.0-100.0); Mean Platelet Volume 7.9; Monocytes # (A) 0.8 k/uL (0-1.0); Monocytes % (A) 8 %; Neutrophils % (A) 80 %; Platelet Count 145 k/uL (150-450); RBC 3.74 m/uL (3.80-5.40); RDW 14.6 % (11.5-15.5)
[2020-12-08 04:22] LABS: Calcium 8.1 mg/dL (8.4-10.2); Potassium 4.4 mmol/L (3.5-5.1); Total Bilirubin 0.5 mg/dL (0.2-1.3); Total Protein 5.4 g/dL (6.3-8.2)
[2020-12-08] MEDS: LEVOTHYROXINE 100 MCG TAB PO SCH (06:30)
[2020-12-08] MEDS: BUDESONIDE 0.5 MG/2 ML NEBU INHALATION SCH ×2 (07:45→20:25)
[2020-12-08] MEDS: ALBUTEROL NEBULIZED 2.5 MG/3 ML INHALATION PRN (07:46)
[2020-12-08] MEDS: LORATADINE 10 MG TAB PO SCH (08:49)
[2020-12-08] MEDS: PANTOPRAZOLE 40 MG/10 ML VIAL IVP SCH (08:49)
[2020-12-08] MEDS: METOPROLOL TARTRATE 50 MG TAB PO SCH ×2 (08:49→22:03)
[2020-12-08] MEDS: MONTELUKAST 10 MG TAB PO SCH (08:49)
[2020-12-08] MEDS: SODIUM CHLORIDE TAB 1 GM TAB PO SCH ×2 (08:49→21:59)
[2020-12-08] MEDS: FLECAINIDE 50 MG TAB PO SCH (08:49)
--- NOTE | 2020-12-08 11:38 | P.PN ---
Subjective This is a 75-year-old female with a past medical history significant for paroxysmal atrial fibrillation and atrial flutter with previous ablation, hy pothyroidism, and COPD. Patient follows in the office with Dr. Beltran. We have been asked to see the patient in consultation for Magaly wahl with RVR. Patient was brought into the hospital 12/05/2020 by her niece secondary to generalized weakness and confusion. Apparently the patient was started on antibiotics a few days ago for a sinus infection. The patient was found to be severely hyponatremic with a sodium of 113. She was admitted to the ICU. EKG reveals sinus mechanism on admission. She was found to be in A fib wtih RVR overnight. She was started on a Cardizem drip which is currently infusing at 5 mg an hour. DIAGNOSTICS: Most recent echocardiogram obtained in 2017 reveals ejection fraction 55%. Mild tricuspid regurgitation. Patient underwent Lexiscan stress test in 2016 revealing moderate reversible defect involving the apical lateral wall distribution of the left circumflex coronary artery indicative of ischemia. Patient underwent cardiac catheterization in December 2016 revealing normal coronary arteries and normal end-diastolic pressure. Current home cardiac medications include Xarelto 20 mg daily and Flecainide 100 mg daily 12/07/2020 Patient examined at the bedside. She is alert and oriented x 3. She is currently in sinus mechanism. She endorses feeling weak and tired. She denies chest pain or pressure, shortness of breath, dizziness or lightheadedness, or palpitations. Laboratory data: WBC 11.7, troponin 8, platelets 47, sodium 13, P 19, serum creatinine 0.6, TSH low, free T4 within normal limits. Patient maintained on a Cardizem drip 5 mg per hour,metoprolol tartrate 25 mg twice a day, Xarelto 20 mg nightly, Flecainide 100 mg daily 12/08/2020: Echocardiogram revealed an EF of 60-65%, mild tricuspid regurgitation. Patient examined at the bedside. She is alert and oriented x 3. She is currently in sinus mechanism. Telemetry reviewed patient in sinus mechanism heart rate 60 to 70s. She states she is feeling much better. She denies chest pain, shortness of breath, dizziness or lightheadedness, or palpitations. Patient currently being maintained on metoprolol tartrate 50 mg twice a day, Xarelto 20 mg nightly, Flecainide 100 mg daily. Laboratory reviewed, WBC 10, hemoglobin 11.9, platelets 145, sodium 127, potassium 4.4, BUN 22, serum creatinine 0.7 PHYSICAL EXAM: VITAL SIGNS: Blood pressure 118/83., heart rate 75, afebrile, maintaining oxygen saturation is 98% on room air GENERAL: Well-developed in no acute distress. HEENT: Head is normocephalic. Neck supple. No JVD or thyromegaly LUNGS: Respirations even and unlabored. Lungs essentially clear to auscultation bilaterally. HEART: Regular rate and rhythm. S1 and S2 heard. No murmurs ABDOMEN: Soft. Nondistended. Nontender. EXTREMITIES: Normal range of motion. No clubbing or cyanosis. Peripheral pulses intact. No lower extremity edema NEUROLOGIC: She is alert, oriented x 3. ASSESSMENT: Generalized weakness Severe hyponatremia - slowly improving with IV fluids Paroxysmal atrial fibrillation, typical a flutter with RVR - on Eliquis - now in sinus mechanism History of cardiac ablation COPD Hypothyroidism PLAN: Echocardiogram reviewed Continue metoprolol tartrate to 50mg BID Continue anticoagulation with Xarelto Continue flecainide 100mg daily From a cardiology perspective, patient is hemodynamically stable to be discharged home. Follow up with Dr. Beltran as an outpatient Nurse practitioner note has been reviewed by physician. Signing provider agrees with the documented findings, assessment, and plan of care. Objective - Vital Signs Vital signs: Vital Signs Temp 97.8 F 12/08/20 04:00 Pulse 73 12/08/20 07:46 Resp 13 12/08/20 07:00 BP 127/58 12/08/20 07:00 Pulse Ox 98 12/08/20 07:00 Intake & Output 12/07/20 12/08/20 12/08/20 18:59 06:59 18:59 Intake Total 1176 155 10 Output Total 475 492 90 Balance 701 337 -80 Weight 81.7 kg 78.1 kg Intake: IV 200 155 10 .09 105 10 Potassium Chloride 10 meq 100 In Water For Injection 1 100ml.bag @ 100 mls/hr IVPB Q1H [facility] Rx#: [id number] Sodium Chloride 3%( 100 Hypertonic) 500 ml @ 25 mls/hr IV .Q20H [facility] Rx#: [id number] cefTRIAXone 1 gm In 50 Sodium Chloride 0.9% 50 ml @ 100 mls/hr IVPB Q12HR [facility] Rx#:[id number] Oral 976 Output: Urine 475 492 90 Other: Voiding Method Indwelling Catheter Indwelling Catheter - Labs CBC & Chem 7: 12/08/20 03:43 12/08/20 03:43 Labs: Abnormal Lab Results - Last 24 Hours (Table) 12/07/20 12/07/20 12/07/20 Range/Units 09:08 12:41 17:07 RBC (3.80-5.40) m/uL Plt Count (150-450) k/uL Neutrophils # (1.3-7.7) k/uL Lymphocytes # (1.0-4.8) k/uL Sodium 123 L 124 L 126 L (137-145) mmol/L Chloride (98-107) mmol/L BUN (7-17) mg/dL Glucose (74-99) mg/dL Calcium (8.4-10.2) mg/dL Total Protein (6.3-8.2) g/dL Albumin (3.5-5.0) g/dL TSH <0.015 L (0.465-4.680) mIU/L 12/08/20 12/08/20 Range/Units 03:43 03:43 RBC 3.74 L (3.80-5.40) m/uL Plt Count 145 L (150-450) k/uL Neutrophils # 8.0 H (1.3-7.7) k/uL Lymphocytes # 0.8 L (1.0-4.8) k/uL Sodium 127 L (137-145) mmol/L Chloride 97 L (98-107) mmol/L BUN 22 H (7-17) mg/dL Glucose 109 H (74-99) mg/dL Calcium 8.1 L (8.4-10.2) mg/dL Total Protein 5.4 L (6.3-8.2) g/dL Albumin 3.0 L (3.5-5.0) g/dL TSH (0.465-4.680) mIU/L Microbiology - Last 24 Hours (Table) 12/05/20 18:56 Blood Culture - Preliminary Blood No Growth after 48 hours 12/05/20 18:56 Group A Strep Throat Culture - Final Throat
[2020-12-08] MEDS ORDERED: COSYNTROPIN 0.25 MG VIAL IVP ONE (12:00)
--- NOTE | 2020-12-08 12:05 | P.PN ---
Subjective Progress Note Date: 12/08/20 Principal diagnosis: Acute hyponatremia and acute metabolic encephalopathy I was consulted on this patient regarding severe hyponatremia, lethargy, diminished level of consciousness and arousal in addition to COPD. The patient is known to have COPD, paroxysmal atrial fibrillation and she has undergone previous ablation and she has history of hypothyroidism. No history of CHF. Her last ejection fraction from 2018 was 55% and the patient has had previous cardiac catheterization in 2017 showing normal coronaries and normal left ventricle end-diastolic pressure. She came into the hospital and she was found to be hyponatremic sodium level wasn't 113. The patient was given normal saline today to 100 mL an hour and his sodium level is at 115. Limited improvement in her lethargy compared to yesterday. She is arousable and she is able to answer questions for now. No angina. No palpitations. No hemodynamic instability. Chest x-ray showing some mild interstitial edema. Nevertheless, the patient is on oxygen at 2 L and there are no signs of any respiratory distress lungs a essentially clear this point in time.. She does not take any form of thiazides. No diarrhea. No other medications that can contribute to hyponatremia. Overnight, the patient went into a chair fibrillation with rapid ventricular response. The patient is currently on 5 mg an hour of Cardizem drip. Patient was reevaluated today on 12/07/2020, patient was admitted to the ICU with hyponatremia, sodium of 113 on admission. She also had A. fib with RVR. Patient is on 2 L nasal cannula, O2 sats is 95%. She is in atrial fibrillation with a rate of 104. She did receive 3% saline at 25 mL per hour. She remains on Cardizem at 5 mg per hour. This morning her sodium is 121. 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 Patient is also being followed by nephrology, felt that her hyponatremia is hypovolemic in nature. And improving with IV hydration. And patient-sahni, the patient is also improving. Cortisol level today is 7. Relatively normal. During my evaluation, the patient had no complaints, and she was not in any distress. Patient was reevaluated today on 12/08/2020, patient is doing much better today, no specific complaints, her sodium is coming up nicely. It is 127 today, considering the patient was admitted with a sodium of 113 patient was seen by nephrology, and entertaining the possibility of SIADH, recommending a Cortrosyn stimulation test, and recommending sodium tablets. Raising the possibility of adrenal insufficiency because of low normal cortisol level. Overall the patient is doing great, and I plan to transfer the patient out of the ICU today. CBC is relatively normal index was were noted renal profile is normal Objective - Vital Signs Vital signs: Vital Signs Temp 97.8 F 12/08/20 04:00 Pulse 75 12/08/20 09:00 Resp 13 12/08/20 09:00 BP 118/83 12/08/20 09:00 Pulse Ox 87 L 12/08/20 09:00 Intake & Output 12/07/20 12/08/20 12/08/20 18:59 06:59 18:59 Intake Total 1176 155 480 Output Total 475 492 330 Balance 701 -337 150 Weight 81.7 kg 78.1 kg Intake: IV 200 155 140 .09 105 40 Potassium Chloride 10 meq 100 In Water For Injection 1 100ml.bag @ 100 mls/hr IVPB Q1H [facility] Rx#: [id number] Sodium Chloride 3%( 100 Hypertonic) 500 ml @ 25 mls/hr IV .Q20H [facility] Rx#: [id number] cefTRIAXone 1 gm In 50 100 Sodium Chloride 0.9% 50 ml @ 100 mls/hr IVPB Q12HR [facility] Rx#:[id number] Oral 976 340 Output: Urine 475 492 330 Other: Voiding Method Indwelling Catheter Indwelling Catheter Indwelling Catheter - Exam Physical Exam: Revealed 75-year-old female in no distress. Head: Atraumatic, normocephalic. HEENT:[Neck is supple.] [No neck masses.] [No thyromegaly.] [No JVD.] Dry mucous membranes. Chest: [Clear throughout, no crackles, no rhonchi, no wheezes.] Cardiac Exam: [Normal S1 and S2, no S3 gallop, no murmur.] Abdomen: [Soft, nontender, no megaly, no rebound, no guarding, normal bowel sounds.] Extremities: [No clubbing, no edema, no cyanosis.] Neurological Exam: [No focal neurologic deficit.] Alert oriented 3. Psychiatric: Normal mood affect and normal mental status examination. Skin: No rashes. - Labs CBC & Chem 7: 12/08/20 03:43 12/08/20 03:43 Labs: Abnormal Lab Results - Last 24 Hours (Table) 12/07/20 12/07/20 12/08/20 Range/Units 12:41 17:07 03:43 RBC 3.74 L (3.80-5.40) m/uL Plt Count 145 L (150-450) k/uL Neutrophils # 8.0 H (1.3-7.7) k/uL Lymphocytes # 0.8 L (1.0-4.8) k/uL Sodium 124 L 126 L (137-145) mmol/L Chloride (98-107) mmol/L BUN (7-17) mg/dL Glucose (74-99) mg/dL Calcium (8.4-10.2) mg/dL Total Protein (6.3-8.2) g/dL Albumin (3.5-5.0) g/dL 12/08/20 Range/Units 03:43 RBC (3.80-5.40) m/uL Plt Count (150-450) k/uL Neutrophils # (1.3-7.7) k/uL Lymphocytes # (1.0-4.8) k/uL Sodium 127 L (137-145) mmol/L Chloride 97 L (98-107) mmol/L BUN 22 H (7-17) mg/dL Glucose 109 H (74-99) mg/dL Calcium 8.1 L (8.4-10.2) mg/dL Total Protein 5.4 L (6.3-8.2) g/dL Albumin 3.0 L (3.5-5.0) g/dL Microbiology - Last 24 Hours (Table) 12/05/20 18:56 Blood Culture - Preliminary Blood No Growth after 48 hours Assessment and Plan Assessment: Hypovolemic hyponatremia Acute metabolic encephalopathy secondary to hyponatremia Generalized weakness secondary to hyponatremia History of hypothyroidism. History of COPD, presently inactive. History of brain tumor, resected. History of hepatitis A. History of restless leg syndrome. History of chronic pain syndrome. Recommendation: Agree with Cortrosyn stimulation test. Continue IV fluids and cautious hydration. Continue to monitor sodium daily. Continue sodium tablets. transfer the patient to a cardiac floor today. Continue GI and DVT prophylaxis. We'll continue to follow Time with Patient: Less than 30
[2020-12-08] MEDS: FLUTICASONE 50MCG/SPRAY NASAL 16GM EA NOSTRIL SCH ×2 (12:34→21:59)
--- NOTE | 2020-12-08 12:49 | PN ---
PROGRESS NOTE Patient is seen for followup for hyponatremia which is mostly euvolemic with possible component of SIADH. Patient was maintained on 3% saline which was discontinued yesterday. Her sodium had been around 121-123, this morning it is up to 127. She is maintained on sodium chloride tabs currently. Blood pressure remains on the lower side. Random cortisol level came back at 7 and therefore a cosyntropin stimulation test will be ordered. This morning patient denied any significant symptoms. She has had good appetite. She denied any numbness, tingling, chest pains or shortness of breath. PHYSICAL EXAMINATION: On examination today, blood pressure 118/83, heart rate 75 per minute, she is afebrile. Examination of the heart S1, S2. Examination of the lungs, bilateral breath sounds are heard. Abdomen is soft, nontender. Examination of lower extremities shows no evidence of edema. MECHANICAL ENGINEERING ADVISOR exam grossly intact. LAB: Show sodium 127, potassium 4.4, chloride 97, BUN 22, creatinine 0.7, hemoglobin 11.9 g/dL. Random cortisol level is 7. ASSESSMENT: 1. Hyponatremia, currently euvolemic, possibly related to underlying SIADH, currently off 3% saline, maintained on sodium chloride tabs with improvement in sodium level up to 128 today. Random cortisol level was low and therefore I will order a cosyntropin stimulation test. 2. History of hypothyroidism associated with low TSH, maintained on supplementation. T4 was within range. 3. History of cardiac ablation. 4. Paroxysmal atrial fibrillation, currently in sinus rhythm. PLAN: Check cosyntropin stimulation test. Continue with the sodium chloride tabs for now. Increase protein intake. MMODL / IJN: [id number] /
[2020-12-08] MEDS: RIVAROXABAN 20 MG TAB PO SCH (19:14)
[2020-12-08] MEDS: PRAVASTATIN SODIUM 20 MG TAB PO SCH (21:59)
[2020-12-09 03:51] LABS: Basophils % (A) 0 %; Eosinophils # (A) 0.1 k/uL (0-0.7); Eosinophils % (A) 1 %; HCT 35.3 % (34.0-46.0); HGB 11.6 gm/dL (11.4-16.0); Lymphocytes # (A) 0.9 k/uL (1.0-4.8); Lymphocytes % (A) 15 %; MCH 31.3 pg (25.0-35.0); MCHC 32.8 g/dL (31.0-37.0); MCV 95.3 fL (80.0-100.0); Mean Platelet Volume 7.5; Monocytes # (A) 0.5 k/uL (0-1.0); Monocytes % (A) 8 %; Neutrophils # (A) 4.7 k/uL (1.3-7.7); Neutrophils % (A) 73 %; Platelet Count 152 k/uL (150-450); RDW 15.3 % (11.5-15.5); WBC 6.4 k/uL (3.8-10.6)
[2020-12-09 04:07] LABS: ALT 20 U/L (4-34); AST 31 U/L (14-36); African American GFR (CKD) >90 (>60 ml/min/1.73 sqM); Albumin 3.2 g/dL (3.5-5.0); Alkaline Phosphatase 96 U/L (38-126); Anion Gap 6 mmol/L; Blood Urea Nitrogen 17 mg/dL (7-17); Calcium 8.6 mg/dL (8.4-10.2); Carbon Dioxide 28 mmol/L (22-30); Chloride 98 mmol/L (98-107); Glucose 103 mg/dL (74-99); Non-African American GFR(CKD) >90 (>60 ml/min/1.73 sqM); Potassium 4.3 mmol/L (3.5-5.1); Sodium 132 mmol/L (137-145); Total Bilirubin 0.5 mg/dL (0.2-1.3); Total Protein 5.7 g/dL (6.3-8.2)
[2020-12-09] MEDS: PANTOPRAZOLE 40 MG TABLET PO SCH (06:53)
[2020-12-09] MEDS: LEVOTHYROXINE 100 MCG TAB PO SCH (06:53)
[2020-12-09] MEDS: BUDESONIDE 0.5 MG/2 ML NEBU INHALATION SCH ×2 (07:50→21:45)
[2020-12-09] MEDS: ALBUTEROL NEBULIZED 2.5 MG/3 ML INHALATION PRN (07:51)
[2020-12-09] MEDS: FLECAINIDE 50 MG TAB PO SCH (09:32)
[2020-12-09] MEDS: METOPROLOL TARTRATE 50 MG TAB PO SCH ×2 (09:33→21:17)
[2020-12-09] MEDS: LORATADINE 10 MG TAB PO SCH (09:33)
[2020-12-09] MEDS: SODIUM CHLORIDE TAB 1 GM TAB PO SCH (09:33)
[2020-12-09] MEDS: FLUTICASONE 50MCG/SPRAY NASAL 16GM EA NOSTRIL SCH ×2 (09:38→21:17)
[2020-12-09] MEDS: MONTELUKAST 10 MG TAB PO SCH (09:40)
--- NOTE | 2020-12-09 11:34 | PN ---
PROGRESS NOTE Patient is seen for followup for hyponatremia. Her sodium level has improved to 132. However, the cosyntropin test from yesterday did show evidence of adrenal insufficiency with inadequate increase in cortisol and very low basal cortisol level at 2. The patient is currently maintained on sodium chloride tabs. PHYSICAL EXAMINATION: On examination today, blood pressure 120/50, heart rate 75 per minute. Patient is afebrile. Examination of the heart S1, S2. Examination of the lungs, bilateral breath sounds are heard. Abdomen is soft, nontender. Examination of lower extremities shows no evidence of edema. SIGNAL MAINTAINER exam grossly intact. LAB: Show sodium 132, potassium 4.3, BUN 17, creatinine 0.59, hemoglobin 11.6 g/dL. ASSESSMENT: 1. Hyponatremia euvolemic, improved with sodium chloride tabs. However, cortisol level was significantly low and patient is started on Cortef. She should follow up with Endocrinology post discharge. Blood pressure is currently not significantly low. I will also decrease the sodium chloride tabs to daily. 2. Hypothyroidism, mostly central with low TSH, maintained on supplementation and with appropriate T4 levels. 3. History of brain tumor. 4. History of restless legs syndrome. 5. Encephalopathy secondary to hyponatremia, currently improved. PLAN: Continue Cortef. Decrease sodium chloride tabs to once a day and follow up with Endocrinology post discharge. Increase oral protein intake. MMODL / IJN: [id number] /
--- NOTE | 2020-12-09 12:11 | P.PN ---
Subjective Progress Note Date: 12/08/20 This is a 75-year-old female patient of Dr. Bansal. Patient presented to the ER with her knees with concerns of altered mental status changes. Per ER report patient had been on amoxicillin for sinus infection 2 days ago. Patient is a poor historian unable to recall recent events. Most history is obtained from ER records. It is stated that patient got fully vaccinated against Covid. Denies any recent trauma. Patient does have past medical history of atrial fibrillation, COPD, thyroid disorder, osteopenia, brain tumor anxiety. head CT was performed showing no acute intracranial abnormality. Chest x-ray performed showing mild to moderate PACs with component of interstitial edema. Upon arri sunny sodium 113. Patient was given normal saline and 100. Patient also treated with azithromycin and Rocephin ER for possible pneumonia. At this time cardiology, nephrology and pulmonary service is consulted. Continue normal saline at 100. Rocephin resumed. Patient denies any acute complaints at this time. Patient denies chest pain or shortness breath. Patient denies nausea vomiting or diarrhea. Patient denies any urinary burning or frequency On 12/07/2020 patient was seen and examined in the ICU she is alert responsive answering questions appropriately at this time, she is still having episodes of confusion, sodium has improved up to 125 today, she is denying any complaints there is no fever or chills no headache or dizziness no chest pain no shortness of breath no cough no nausea or vomiting no abdominal pain no diarrhea and no urinary symptoms On 12/08/2020 patient is alert and oriented 3. Patient remains in the intensive care unit. Patient's sodium improving to 127. Patient maintained on sodium chloride tabs. At this time patient denies chest pain or shortness giancarlo th. Patient denies nausea vomiting or diarrhea. Patient denies any urinary burning or frequency Objective - Vital Signs Vital signs: Vital Signs Temp 97.8 F 12/08/20 04:00 Pulse 75 12/08/20 09:00 Resp 13 12/08/20 09:00 BP 118/83 12/08/20 09:00 Pulse Ox 87 L 12/08/20 09:00 Intake & Output 12/07/20 12/08/20 12/08/20 18:59 06:59 18:59 Intake Total 1176 155 480 Output Total 475 492 330 Balance 701 -337 150 Weight 81.7 kg 78.1 kg Intake: IV 200 155 140 .09 105 40 Potassium Chloride 10 meq 100 In Water For Injection 1 100ml.bag @ 100 mls/hr IVPB Q1H [facility] Rx#: [id number] Sodium Chloride 3%( 100 Hypertonic) 500 ml @ 25 mls/hr IV .Q20H [facility] Rx#: [id number] cefTRIAXone 1 gm In 50 100 Sodium Chloride 0.9% 50 ml @ 100 mls/hr IVPB Q12HR [facility] Rx#:[id number] Oral 976 340 Output: Urine 475 492 330 Other: Voiding Method Indwelling Catheter Indwelling Catheter Indwelling Catheter - Exam Head normocephalic and atraumatic Neck supple no JVD no goiter no lymphadenopathy Lungs clear to auscultation bilaterally no wheezing or crackles Heart irregular rate. Known atrial fibrillation Abdomen is soft nontender nondistended positive bowel sounds no hepatosplenomegaly Extremities no edema Neuro alert and orientated to 2. Intermittent confusion poor historian - Labs CBC & Chem 7: 12/09/20 03:18 12/09/20 03:18 Labs: Abnormal Lab Results - Last 24 Hours (Table) 12/07/20 12/08/20 12/08/20 Range/Units 17:07 03:43 03:43 RBC 3.74 L (3.80-5.40) m/uL Plt Count 145 L (150-450) k/uL Neutrophils # 8.0 H (1.3-7.7) k/uL Lymphocytes # 0.8 L (1.0-4.8) k/uL Sodium 126 L 127 L (137-145) mmol/L Chloride 97 L (98-107) mmol/L BUN 22 H (7-17) mg/dL Glucose 109 H (74-99) mg/dL Calcium 8.1 L (8.4-10.2) mg/dL Total Protein 5.4 L (6.3-8.2) g/dL Albumin 3.0 L (3.5-5.0) g/dL Microbiology - Last 24 Hours (Table) 12/05/20 18:56 Blood Culture - Preliminary Blood No Growth after 48 hours Assessment and Plan Assessment: 1. Altered mental status changes secondary to hyponatremia. Sodium improving today up to 125 2. Atrial fibrillation with rapid ventricular response. Patient was started on Cardizem drip. Patient has been transitioned off Cardizem drip per cardiology 3. Possible bilateral pneumonia. Pulmonary service is consulted. Patient maintained on IV antibiotics 4. Hypothyroidism. Upon admit TSH less than 0.015. Synthroid dose reduced to 100 5. Known atrial fibrillation. Maintained on anticoagulation with xarelto 6. History of COPD 7. History of anxiety DVT prophylaxis xarelto. GI prophylaxis Protonix Nephrology, cardiology and critical care services are following
--- NOTE | 2020-12-09 12:16 | P.PN ---
Subjective Progress Note Date: 12/09/20 This is a 75-year-old female patient of Dr. Bansal. Patient presented to the ER with her knees with concerns of altered mental status changes. Per ER report patient had been on amoxicillin for sinus infection 2 days ago. Patient is a poor historian unable to recall recent events. Most history is obtained from ER records. It is stated that patient got fully vaccinated against Covid. Denies any recent trauma. Patient does have past medical history of atrial fibrillation, COPD, thyroid disorder, osteopenia, brain tumor anxiety. head CT was performed showing no acute intracranial abnormality. Chest x-ray performed showing mild to moderate PACs with component of interstitial edema. Upon arri sunny sodium 113. Patient was given normal saline and 100. Patient also treated with azithromycin and Rocephin ER for possible pneumonia. At this time cardiology, nephrology and pulmonary service is consulted. Continue normal saline at 100. Rocephin resumed. Patient denies any acute complaints at this time. Patient denies chest pain or shortness breath. Patient denies nausea vomiting or diarrhea. Patient denies any urinary burning or frequency On 12/07/2020 patient was seen and examined in the ICU she is alert responsive answering questions appropriately at this time, she is still having episodes of confusion, sodium has improved up to 125 today, she is denying any complaints there is no fever or chills no headache or dizziness no chest pain no shortness of breath no cough no nausea or vomiting no abdominal pain no diarrhea and no urinary symptoms On 12/08/2020 patient is alert and oriented 3. Patient remains in the intensive care unit. Patient's sodium improving to 127. Patient maintained on sodium chloride tabs. At this time patient denies chest pain or shortness giancarlo th. Patient denies nausea vomiting or diarrhea. Patient denies any urinary burning or frequency 12/09/2020. Patient is alert and oriented 3. Patient remains in intensive care unit but as med surge overflow patient. Sodium improving 132. Per nephrology services recommend keeping patient for an additional 24 hours to monitor. Patient has been transitioned to sodium chloride tabs. At this time patient denies chest pain or shortness of breath. Patient denies nausea vomiting or diarrhea. Patient denies any urinary burning or frequency Objective - Vital Signs Vital signs: Vital Signs Temp 98.1 F 12/09/20 09:00 Pulse 75 12/09/20 09:00 Resp 18 12/09/20 02:00 BP 120/50 12/09/20 09:00 Pulse Ox 95 12/09/20 09:00 Intake & Output 12/08/20 12/09/20 12/09/20 18:59 06:59 18:59 Intake Total 930 50 Output Total 530 Balance 400 50 Intake: IV 140 50 .09 40 cefTRIAXone 1 gm In 100 50 Sodium Chloride 0.9% 50 ml @ 100 mls/hr IVPB Q12HR [facility] Rx#:[id number] Oral 790 Output: Urine 530 Other: Voiding Method Indwelling Catheter Toilet # Voids 1 - Exam Head normocephalic and atraumatic Neck supple no JVD no goiter no lymphadenopathy Lungs clear to auscultation bilaterally no wheezing or crackles Heart irregular rate. Known atrial fibrillation Abdomen is soft nontender nondistended positive bowel sounds no hepatosplenomegaly Extremities no edema Neuro alert and orientated to 2. Intermittent confusion poor historian - Labs CBC & Chem 7: 12/09/20 03:18 12/09/20 03:18 Labs: Abnormal Lab Results - Last 24 Hours (Table) 12/09/20 12/09/20 Range/Units 03:18 03:18 RBC 3.70 L (3.80-5.40) m/uL Lymphocytes # 0.9 L (1.0-4.8) k/uL Sodium 132 L (137-145) mmol/L Glucose 103 H (74-99) mg/dL Total Protein 5.7 L (6.3-8.2) g/dL Albumin 3.2 L (3.5-5.0) g/dL Microbiology - Last 24 Hours (Table) 12/05/20 18:56 Blood Culture - Preliminary Blood No Growth after 72 hours Assessment and Plan Assessment: 1. Altered mental status changes secondary to hyponatremia. Sodium improving 132 2. Atrial fibrillation with rapid ventricular response. Patient was started on Cardizem drip. Patient has been transitioned off Cardizem drip per cardiology. Patient has been started on metoprolol 3. Possible bilateral pneumonia. Pulmonary service is consulted. Patient maintained on IV antibiotics 4. Hypothyroidism. Upon admit TSH less than 0.015. Synthroid dose reduced to 100 5. Known paroxysmal atrial fibrillation. Maintained on anticoagulation with xarelto, flecainide and Metroprolol. Patient has been cleared for discharge from cardiology standpoint 6. History of COPD 7. History of anxiety DVT prophylaxis xarelto. GI prophylaxis Protonix Nephrology, cardiology and critical care services are following Patient currently on Cortef and sodium chloride tabs Per nephrology recommend following up with endocrinology services outpatient
--- NOTE | 2020-12-09 12:50 | P.PN ---
Subjective Progress Note Date: 12/09/20 Principal diagnosis: Acute hyponatremia and acute metabolic encephalopathy I was consulted on this patient regarding severe hyponatremia, lethargy, diminished level of consciousness and arousal in addition to COPD. The patient is known to have COPD, paroxysmal atrial fibrillation and she has undergone previous ablation and she has history of hypothyroidism. No history of CHF. Her last ejection fraction from 2018 was 55% and the patient has had previous cardiac catheterization in 2017 showing normal coronaries and normal left ventricle end-diastolic pressure. She came into the hospital and she was found to be hyponatremic sodium level wasn't 113. The patient was given normal saline today to 100 mL an hour and his sodium level is at 115. Limited improvement in her lethargy compared to yesterday. She is arousable and she is able to answer questions for now. No angina. No palpitations. No hemodynamic instability. Chest x-ray showing some mild interstitial edema. Nevertheless, the patient is on oxygen at 2 L and there are no signs of any respiratory distress lungs a essentially clear this point in time.. She does not take any form of thiazides. No diarrhea. No other medications that can contribute to hyponatremia. Overnight, the patient went into a chair fibrillation with rapid ventricular response. The patient is currently on 5 mg an hour of Cardizem drip. Patient was reevaluated today on 12/07/2020, patient was admitted to the ICU with hyponatremia, sodium of 113 on admission. She also had A. fib with RVR. Patient is on 2 L nasal cannula, O2 sats is 95%. She is in atrial fibrillation with a rate of 104. She did receive 3% saline at 25 mL per hour. She remains on Cardizem at 5 mg per hour. This morning her sodium is 121. 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 Patient is also being followed by nephrology, felt that her hyponatremia is hypovolemic in nature. And improving with IV hydration. And patient-sahni, the patient is also improving. Cortisol level today is 7. Relatively normal. During my evaluation, the patient had no complaints, and she was not in any distress. Patient was reevaluated today on 12/08/2020, patient is doing much better today, no specific complaints, her sodium is coming up nicely. It is 127 today, considering the patient was admitted with a sodium of 113 patient was seen by nephrology, and entertaining the possibility of SIADH, recommending a Cortrosyn stimulation test, and recommending sodium tablets. Raising the possibility of adrenal insufficiency because of low normal cortisol level. Overall the patient is doing great, and I plan to transfer the patient out of the ICU today. CBC is relatively normal index was were noted renal profile is normal Reevaluated today on 12/09/2020, repeat baseline serum cortisol was 2, this is clearly consistent with adrenal insufficiency, patient was placed on Cortef 10 mg twice a day. Patient is doing well today, relatively asymptomatic, sodium is basically almost back to normal. It is 132 today. Patient could be transferred to a regular medical floor or could be discharged home. I am actually cleared the patient to be discharged home today. She did have close outpatient follow- up, and her sodium could be repeated on outpatient basis rather than keeping her another day in the hospital. Clinically the patient is doing great, her labs are basically all normal. And again cleared for discharge home today. Objective - Vital Signs Vital signs: Vital Signs Temp 98.1 F 12/09/20 09:00 Pulse 75 12/09/20 09:00 Resp 18 12/09/20 02:00 BP 120/50 12/09/20 09:00 Pulse Ox 95 12/09/20 09:00 Intake & Output 12/08/20 12/09/20 12/09/20 18:59 06:59 18:59 Intake Total 930 50 Output Total 530 Balance 400 50 Intake: IV 140 50 .09 40 cefTRIAXone 1 gm In 100 50 Sodium Chloride 0.9% 50 ml @ 100 mls/hr IVPB Q12HR [facility] Rx#:[id number] Oral 790 Output: Urine 530 Other: Voiding Method Indwelling Catheter Toilet # Voids 1 - Exam Physical Exam: Revealed 75-year-old female in no distress. Head: Atraumatic, normocephalic. HEENT:[Neck is supple.] [No neck masses.] [No thyromegaly.] [No JVD.] Dry mucous membranes. Chest: [Clear throughout, no crackles, no rhonchi, no wheezes.] Cardiac Exam: [Normal S1 and S2, no S3 gallop, no murmur.] Abdomen: [Soft, nontender, no megaly, no rebound, no guarding, normal bowel sounds.] Extremities: [No clubbing, no edema, no cyanosis.] Neurological Exam: [No focal neurologic deficit.] Alert oriented 3. Psychiatric: Normal mood affect and normal mental status examination. Skin: No rashes. - Labs CBC & Chem 7: 12/09/20 03:18 12/09/20 03:18 Labs: Abnormal Lab Results - Last 24 Hours (Table) 12/09/20 12/09/20 Range/Units 03:18 03:18 RBC 3.70 L (3.80-5.40) m/uL Lymphocytes # 0.9 L (1.0-4.8) k/uL Sodium 132 L (137-145) mmol/L Glucose 103 H (74-99) mg/dL Total Protein 5.7 L (6.3-8.2) g/dL Albumin 3.2 L (3.5-5.0) g/dL Microbiology - Last 24 Hours (Table) 12/05/20 18:56 Blood Culture - Preliminary Blood No Growth after 72 hours Assessment and Plan Assessment: Hypovolemic hyponatremia Acute metabolic encephalopathy secondary to hyponatremia, secondary to chronic adrenal insufficiency. Generalized weakness secondary to hyponatremia History of hypothyroidism. History of COPD, presently inactive. History of brain tumor, resected. History of hepatitis A. History of restless leg syndrome. History of chronic pain syndrome. Recommendation: Continue Cortef. Continue IV fluids and cautious hydration. Continue sodium tablets. Cleared patient for discharge home today. We will sign off Time with Patient: Less than 30
[2020-12-09] MEDS: RIVAROXABAN 20 MG TAB PO SCH (17:11)
[2020-12-09] MEDS: PRAVASTATIN SODIUM 20 MG TAB PO SCH (21:17)
[2020-12-09] MEDS: HYDROCORTISONE 10 MG TAB PO SCH (21:17)
[2020-12-09] MEDS ORDERED: ALBUTEROL HFA INHALER INHALATION PRN (23:56)
[2020-12-10] MEDS ORDERED: ALBUTEROL NEBULIZED 2.5 MG/3 ML INHALATION PRN (04:08)
[2020-12-10] MEDS: LEVOTHYROXINE 100 MCG TAB PO SCH (06:13)
[2020-12-10 07:45] VITALS: RESP 18; TEMP 98.8
[2020-12-10] MEDS: LORATADINE 10 MG TAB PO SCH (08:00)
[2020-12-10] MEDS: MONTELUKAST 10 MG TAB PO SCH (08:00)
[2020-12-10] MEDS: PANTOPRAZOLE 40 MG TABLET PO SCH (08:00)
[2020-12-10] MEDS: FLECAINIDE 50 MG TAB PO SCH (08:00)
[2020-12-10] MEDS: HYDROCORTISONE 10 MG TAB PO SCH (08:01)
[2020-12-10] MEDS: FLUTICASONE 50MCG/SPRAY NASAL 16GM EA NOSTRIL SCH (08:04)
[2020-12-10] MEDS: METOPROLOL TARTRATE 50 MG TAB PO SCH (08:04)
[2020-12-10] MEDS: BUDESONIDE 0.5 MG/2 ML NEBU INHALATION SCH (08:56)
[2020-12-10] MEDS ORDERED: SODIUM CHLORIDE TAB 1 GM TAB PO SCH (09:00)
[2020-12-10 11:12] LABS: African American GFR (CKD) >90 (>60 ml/min/1.73 sqM); Anion Gap 4 mmol/L; Blood Urea Nitrogen 19 mg/dL (7-17); Calcium 8.9 mg/dL (8.4-10.2); Carbon Dioxide 31 mmol/L (22-30); Chloride 99 mmol/L (98-107); Glucose 119 mg/dL (74-99); Non-African American GFR(CKD) 90 (>60 ml/min/1.73 sqM); Potassium 4.3 mmol/L (3.5-5.1); Sodium 134 mmol/L (137-145)
--- NOTE | 2020-12-10 12:26 | PN ---
PROGRESS NOTE Patient is seen for followup for hyponatremia. She was also found to have underlying adrenal insufficiency and started on Cortef. Her sodium has improved. I will discontinue the sodium chloride tabs. Overall, patient is doing well. She denies any significant complaints. The patient also has hypothyroidism with low TSH and appropriate T4 and maintained on supplementation. Therefore, she is recommended to see an scraper meat post discharge. EXAMINATION: Today patient is comfortable. Blood pressure 133/60, heart rate 51 per minute. She is afebrile. Examination of the heart S1, S2. Examination of the lungs, bilateral breath sounds are heard. Abdomen is soft, nontender. Examination of lower extremities shows no evidence of edema. E[employer] MECH[employer]IC exam grossly intact. LAB: Show sodium 134, potassium 4.3, chloride 99, CO2 31, BUN 19, creatinine 0.6, hemoglobin 11.6 g/dL. ASSESSMENT: 1. Hyponatremia hypovolemic initially, now mostly euvolemic and found to have adrenal insufficiency. Random cortisol level was as low as 2. The patient did have an ACTH stimulation test and her cortisol was 2, 9 and then 13 at 0, 30 and 60 minutes. I have started her on Cortef and she is advised to follow up with Endocrinology post discharge. I will discontinue the sodium chloride tabs. Blood pressure is also improved. 2. Hypothyroidism appears to be central with low TSH, maintained on supplementation with appropriate T4 levels. 3. History of brain tumor. 4. History of restless legs syndrome. 5. Encephalopathy related to electrolyte imbalance, now resolved. PLAN: Discontinue sodium chloride tabs. Continue Cortef. Follow up with Endocrinology as outpatient. MMODL / IJN: [id number] /
[2020-12-10 12:58] VITALS: BMI 27.8
[2020-12-10 14:13] VITALS: BP 127/67; PULSE 54
== END 2020-12-10 15:51 | disposition home or self-care (01) | DRG 643 ==
LOC: EC 18:05 → 3SCARD 20:54 → 2SICU 12-06 12:19 → 4SSUR 12-09 13:42
PROVIDERS: ADMIT Internal Medicine; ATTEND Internal Medicine
DX: E22.2 Syndrome of inappropriate secretion of antidiuretic hormone (principal); G93.41 Metabolic encephalopathy; J18.9 Pneumonia, unspecified organism; E27.40 Unspecified adrenocortical insufficiency; I48.3 Typical atrial flutter; J44.0 Chronic obstructive pulmonary disease with (acute) lower respiratory infection; E03.9 Hypothyroidism, unspecified; J32.9 Chronic sinusitis, unspecified; E86.1 Hypovolemia; F41.9 Anxiety disorder, unspecified; F41.1 Generalized anxiety disorder; G25.81 Restless legs syndrome; M54.5 Low back pain; G89.4 Chronic pain syndrome; I48.0 Paroxysmal atrial fibrillation; M85.80 Other specified disorders of bone density and structure, unspecified site; Z20.822 Contact with and (suspected) exposure to COVID-19; Z79.01 Long term (current) use of anticoagulants; Z79.51 Long term (current) use of inhaled steroids; Z79.890 Hormone replacement therapy; Z79.899 Other long term (current) drug therapy; Z82.5 Family history of asthma and other chronic lower respiratory diseases; Z98.890 Other specified postprocedural states; Z98.49 Cataract extraction status, unspecified eye; Z88.1 Allergy status to other antibiotic agents; Z86.19 Personal history of other infectious and parasitic diseases
CPT/HCPCS: 36415; 70450; 71046; 80048; 80053; 80061; 80306; 80320; 81001; 82533; 83605; 83930; 83935; 84295; 84300; 84439; 84443; 84484; 85025; 85610; 85730; 87040; 87081; 87430; 87635; 93005; 93306; 94640; 96374; 96375; 99285

== ENCOUNTER → 2020-12-21 | Outpatient (CLI) | payer MEDICARE ==
[2020-12-21 13:17] VITALS: BP 151/74; PULSE 58; RESP 16; TEMP 97.7
--- NOTE | 2020-12-21 13:29 | P.PN ---
Subjective Progress Note Date: 12/21/20 This is a 75-year-old lady with history of axial lower back pain with lumbar medial branch RFA on the left side about one month ago was complete resolution of her pain. The patient stated that her pain today is 0 out of 10. Patient denies new-onset weakness, bowel/bladder incontinence, or any other signs or symptoms of cauda equina syndrome. There are no signs of acute intoxication, and no indications of medication diversion or overuse. In addition to above, 13-point review of systems is also negative for chest pain, shortness of breath, changes in vision, changes in hearing, new onset weakness, abdominal pain, diarrhea, extreme fatigue, malaise, fever, skin perez ges, homicidal or suicidal ideation, or bowel or bladder incontinence. Vital Signs: Reviewed in EMR Gen: AAOx3, NAD HEENT: PERRLA,hearing grossly normal Pulm: resp unlabored Neck: supple, trachea midline Neuro exam of the lower extremities: Normal muscle strength in the lower extremities bilaterally Straight leg raising test: Gregory's test: Range of motion of the lumbar spine: Facet loading test: Tenderness in the paravertebral musculature: No tenderness in the lumbar paravertebral musculature Neuro: CN II-XII grossly intact, Imaging: Reviewed in EMR/chart Assessment: Lumbar spondylosis without myelopathy Atrial fibrillation with treatment with Xarelto History of COPD History of hyponatremia Plan: 1. Explanation: Opioid and psychological risk scores were reviewed. Diagnoses, prognoses, and multiple treatment options including but not limited to physical therapy, interventional therapies, adjuvant medical therapies, narcotic medication therapies, and surgery were discussed with the patient and all questions were answered to the patient's satisfaction. 2. Opioid agreement: Signed with the patient and the patient is warned not to use opioids while driving or before driving and not to combine opioids with benzodiazepines or alcohol. 3. Counseling: The patient was counseled extensively on SMOKING CESSATION, BODY MASS INDEX, EXERCISE. Specifically, the patient was instructed regarding the importance of smoking cessation, obesity, and exercise in the context of both chronic pain and overall health. 4. Procedures: none For now 5. Consultations: None 6. Investigations: None 7. Medications: None prescribed 8. Disposition: Return to clinic as needed. 9. Maps were reviewed and were appropriate. Objective - Vital Signs Vital signs: Vital Signs Temp 97.7 F 12/21/20 13:14 Pulse 58 L 12/21/20 13:14 Resp 16 12/21/20 13:14 BP 151/74 12/21/20 13:14 Pulse Ox 98 12/21/20 13:14
== END | disposition home or self-care (01) ==
LOC: PNWHC3 13:06
PROVIDERS: ATTEND Anesthesiology
DX: M47.816 Spondylosis without myelopathy or radiculopathy, lumbar region (principal); I48.91 Unspecified atrial fibrillation; Z79.01 Long term (current) use of anticoagulants; Z87.09 Personal history of other diseases of the respiratory system; Z86.39 Personal history of other endocrine, nutritional and metabolic disease; Z98.890 Other specified postprocedural states
CPT/HCPCS: 99211

== ENCOUNTER → 2021-03-01 | Outpatient (CLI) | payer MEDICARE ==
--- NOTE | 2021-03-03 08:53 | MM ---
Reason for exam: screening (asymptomatic). Last mammogram was performed 1 year and 2 months ago. History: Patient is postmenopausal and is nulliparous. Took estrogen for 5 years beginning at age 45. Physical Findings: A clinical breast exam by your physician is recommended on an annual basis and results should be correlated with mammographic findings. MG Screening Mammo w CAD Bilateral CC and MLO view(s) were taken. Prior study comparison: January 06, 2020, mammogram, performed at [facility]. September 25, 2018, mammogram, performed at [facility]. The breast tissue is extremely dense which could obscure a lesion on mammography. No significant changes when compared with prior studies. ASSESSMENT: Benign, BI-RAD 2 RECOMMENDATION: Routine screening mammogram of both breasts in 1 year.
== END | disposition home or self-care (01) ==
LOC: RADMAMWWP 16:05
PROVIDERS: ATTEND Family Medicine
DX: Z12.31 Encounter for screening mammogram for malignant neoplasm of breast (principal); Z78.0 Asymptomatic menopausal state
CPT/HCPCS: 77067

== ENCOUNTER → 2021-05-01 | Outpatient (CLI) | payer MEDICARE | END | disposition home or self-care (01) | LOC: LABPAT 08:51 | PROVIDERS: ATTEND Internal Medicine Clinical Cardiac Electrophysiology | DX: Z01.812 Encounter for preprocedural laboratory examination (principal); Z20.822 Contact with and (suspected) exposure to COVID-19; I48.0 Paroxysmal atrial fibrillation | CPT/HCPCS: 87635 ==

== ENCOUNTER → 2022-03-14 | Outpatient (CLI) | payer MEDICARE ==
--- NOTE | 2022-03-15 18:35 | MM ---
Reason for Exam: Screening (asymptomatic). Last screening mammogram was performed 12 month(s) ago. Patient History: Menarche at age 14. Patient has no children. Postmenopausal. Estrogen for 5 years from age 45 until age 50. Maternal aunt had breast cancer, age 65. Risk Values: Alecia 5 year model risk: 1.8%. NCI Lifetime model risk: 3.6%. Prior Study Comparison: 09/25/2018 Screening Mammogram, [facility]. 01/06/2020 Screening Mammogram, [facility]. 03/01/2021 Bilateral Screening Mammogram, [facility]. Tissue Density: The breast tissue is heterogeneously dense. This may lower the sensitivity of mammography. Findings: Analyzed By CAD. Possible focal asymmetry which appears more defined from prior exams along the central inner anterior right breast. The area incompletely disperses on 3-D images. Loop recorder device on the left. Otherwise, no significant change. Overall Assessment: Incomplete: need additional imaging evaluation, BI-RAD 0 Management: Special View Mammogram of the right breast. Including spot 3-D CC, spot 3-D MLO, and 3-D LM views. Targeted right breast ultrasound if any persisting abnormality. [facility] will attempt to contact patient to return for supplemental views and ultrasound if indicated. Electronically signed and approved by: Francoise Clement M.D. Radiologist
== END | disposition home or self-care (01) ==
LOC: RADMAMWWP 14:37
PROVIDERS: ATTEND Family Medicine
DX: Z12.31 Encounter for screening mammogram for malignant neoplasm of breast (principal); Z78.0 Asymptomatic menopausal state; Z80.3 Family history of malignant neoplasm of breast
CPT/HCPCS: 77063; 77067

== ENCOUNTER → 2022-03-22 | Outpatient (CLI) | payer MEDICARE ==
--- NOTE | 2022-03-22 14:11 | MM ---
Reason for Exam: Additional evaluation requested from abnormal screening. Last screening mammogram was performed less than 1 month ago. Patient History: Menarche at age 14. Patient has no children. Postmenopausal. Estrogen for 5 years from age 45 until age 50. Maternal aunt had breast cancer, age 65. Risk Values: Alecia 5 year model risk: 1.8%. NCI Lifetime model risk: 3.6%. Prior Study Comparison: 09/25/2018 Screening Mammogram, [facility]. 01/06/2020 Screening Mammogram, [facility]. 03/01/2021 Bilateral Screening Mammogram, [facility]. Tissue Density: Right: The breast tissue is heterogeneously dense. This may lower the sensitivity of mammography. Findings: Analyzed By CAD. Focal asymmetry in the central inner anterior right breast does not persist with compression. Overall Assessment: Benign, BI-RAD 2 Management: Screening Mammogram of both breasts in 1 year. A clinical breast exam by your physician is recommended on an annual basis and results should be correlated with mammographic findings. This exam should not preclude additional follow-up of suspicious palpable abnormalities. Results were given to the patient verbally at the time of exam. Electronically signed and approved by: Alexi Ochoa D.O.
== END | disposition home or self-care (01) ==
LOC: RADMAMWWP 13:33
PROVIDERS: ATTEND Family Medicine
DX: R92.8 Other abnormal and inconclusive findings on diagnostic imaging of breast (principal)
CPT/HCPCS: 77065; G0279; 77061

== ENCOUNTER → 2022-09-29 | Outpatient (CLI) | payer MEDICARE | END | disposition home or self-care (01) | LOC: LABWHC1 09:37 | PROVIDERS: ATTEND Family Medicine | DX: E23.0 Hypopituitarism (principal) | CPT/HCPCS: 36415; 82024; 84305 ==

== ENCOUNTER → 2022-11-30 | Outpatient (CLI) | payer MEDICARE ==
[2022-11-30 16:13] LABS: ALT 44 U/L (8-44); AST 47 U/L (13-35); Albumin/Globulin Ratio 1.67 Ratio (1.60-3.17); Alkaline Phosphatase 100 U/L (41-126); BUN/Creat Ratio 21.83 Ratio (12.00-20.00); Blood Urea Nitrogen 26.2 mg/dL (9.0-27.0); Calcium 9.4 mg/dL (8.7-10.3); Carbon Dioxide 27.8 mmol/L (21.6-31.8); Chloride 105 mmol/L (96-109); Globulin 2.4 d/dL (1.6-3.3); Glucose 84 mg/dL (70-110); Potassium 4.2 mmol/L (3.5-5.5); Sodium 144 mmol/L (135-145); T4, Free (Free Thyroxine) 1.68 ng/dL (0.80-1.80); Total Bilirubin 0.4 mg/dL (0.3-1.2); Total Protein 6.4 d/dL (6.2-8.2)
== END | disposition home or self-care (01) ==
LOC: LABWHC1 09:00
PROVIDERS: ATTEND Internal Medicine Endocrinology, Diabetes & Metabolism
DX: E23.0 Hypopituitarism (principal)
CPT/HCPCS: 36415; 80053; 82533; 84146; 84439; 84443; 84480

== ENCOUNTER → 2023-03-03 | Outpatient (CLI) | payer MEDICARE ==
[2023-03-03 17:08] LABS: T4, Free (Free Thyroxine) 1.61 ng/dL (0.80-1.80)
[2023-03-03 17:58] LABS: Prolactin 72.8 ng/mL (2.800-29.200)
[2023-03-03 18:14] LABS: ACTH 2.89 pg/mL (0.00-45.99)
== END | disposition home or self-care (01) ==
LOC: LABWHC1 09:10
PROVIDERS: ATTEND Internal Medicine Endocrinology, Diabetes & Metabolism
DX: E03.8 Other specified hypothyroidism (principal); E23.0 Hypopituitarism
CPT/HCPCS: 36415; 82024; 82533; 84146; 84439; 84480

== ENCOUNTER 2023-03-19 14:15 | Emergency (ER) | payer MEDICARE ==
[2023-03-19 14:33] VITALS: RESP 18
--- NOTE | 2023-03-19 15:05 | ED ---
General Adult HPI - General Chief complaint: Recheck/Abnormal Lab/Rx Stated complaint: Anxiety Time Seen by Provider: 03/19/23 14:36 Source: patient, RN notes reviewed Mode of arrival: ambulatory Limitations: no limitations - History of Present Illness Initial comments: 77-year-old female with past medical history significant for adrenal insufficiency presents emergency department the chief complaint of medication here. Patient reports that she is supposed to take her hydrocortisone in the morning at approximately 06 100. She reports that she remembered around 11:30 that she forgot to take her medication at that time. She took her morning dose. She is taking her subsequent dose at 2:30. She reports missing her dose meters how anxious however is being in the emergency department his symptoms have since resolved. Patient offers no specific complaints at time of evaluation. She denies any dizziness, lightheadedness, vision changes, nausea, vomiting, chest pain, chest tightness, palpitations, shortness of breath. Patient endorses she's is going to see her human capital analyst tomorrow at 1:30 PM - Related Data Home Medications Medication Instructions Recorded Confirmed Montelukast [Singulair] 10 mg PO DAILY 09/30/13 05/04/21 Rivaroxaban [Xarelto] 20 mg PO W/SUPPER 09/30/13 05/04/21 Fluticasone Nasal [place] [Flonase 1 spr EA NOSTRIL BID 06/21/16 05/04/21 Nasal [place]] Loratadine 10 mg PO QAM 09/30/20 05/04/21 Pravastatin Sodium [Pravachol] 20 mg PO HS 09/30/20 05/04/21 Albuterol Inhaler [Ventolin Hfa 1 - 2 puff INHALATION RT-Q6H PRN 12/05/20 05/04/21 Inhaler] Budesonide [Pulmicort] 0.5 mg INHALATION RT-BID 12/05/20 05/04/21 Levothyroxine Sodium [Synthroid] 112 mcg PO DAILY 12/05/20 05/04/21 Cholecalciferol [Vitamin D3 (25 25 mcg PO DAILY 04/30/21 05/04/21 Mcg = 1000 Iu)] Flecainide [Tambocor] 50 mg PO Q12HR 04/30/21 05/04/21 Metoprolol Tartrate [Lopressor] 25 mg PO QAM 04/30/21 05/04/21 Multivitamins, Thera [Multivitamin 1 tab PO DAILY 04/30/21 05/04/21 (formulary)] Temazepam [Restoril] 15 mg PO HS PRN 04/30/21 05/04/21 diphenhydrAMINE HCL [Benadryl] 25 mg PO HS 04/30/21 05/04/21 Previous Rx's Medication Instructions Recorded Hydrocortisone [Cortef] 10 mg PO BID tab 12/10/20 Allergies Allergy/AdvReac Type Severity Reaction Status Date / Time levofloxacin [From Levaquin] AdvReac Confusion/n Verified 05/04/21 08:13 ausea Review of Systems ROS Statement: Those systems with pertinent positive or pertinent negative responses have been documented in the HPI. ROS Other: All systems not noted in ROS Statement are negative. Past Medical History Past Medical History: Atrial Fibrillation, Asthma, Osteoarthritis (OA), Sleep Apnea/CPAP/BIPAP, Thyroid Disorder, Vascular Disorder Additional Past Medical History / Comment(s): osteopenia, hep A at age 16, RLS, treated for seizures after brain tumor removed but no longer takes med, sciatica, see Dr Beltran H&P, History of Any Multi-Drug Resistant Organisms: ESBL Date of last positivie culture/infection: 08/17/18 MDRO Source:: ESBL URINE Past Surgical History: Cardiac Ablation Additional Past Surgical History / Comment(s): Cardiac AblationX2, Brain tumor removal, santi cataracts, pain clinic procedure Past Anesthesia/Blood Transfusion Reactions: No Reported Reaction Past Psychological History: No Psychological Hx Reported Smoking Status: Never smoker - Past Family History Brother(s) Family Medical History: Cancer Sister(s) Family Medical History: Cancer General Exam - General Exam Comments Initial Comments: General: Alert, in no acute distress Head: atraumatic normocephalic. Eyes PERRL, EOMI intact, mucous membranes moist Respiratory: Lungs clear to auscultation bilaterally Cardiovascular: Rate regular rate and rhythm Abdominal: Soft without guarding or rebound Extremities: Normal inspection with full range of motion and normal capillary refill Neuroogic: alert and oriented 3, CN II-XII intact, able to ambulate with steady gait Skin: warm dry and intact with normal color Limitations: no limitations Course Vital Signs 03/19/23 03/19/23 03/19/23 14:18 14:55 15:07 Temperature 98.1 F 98.4 F 98.8 F Pulse Rate 70 60 60 Respiratory 18 18 18 Rate Blood Pressure 194/99 145/70 152/71 O2 Sat by Pulse 95 94 L 96 Oximetry Medical Decision Making - Medical Decision Making Was pt. sent in by a medical professional or institution (, JIM, SUCTION ROLLER, urgent care, hospital, or senior care...) When possible be specific @ -[No] Did you speak to anyone other than the patient for history (EMS, parent, family, police, friend...)? What history was obtained from this source @ -Niece Did you review nursing and triage notes (agree or disagree)? Why? @ -[I reviewed and agree with nursing and triage notes] Were old charts reviewed (outside hosp., previous admission, EMS record, old EKG, old radiological studies, urgent care reports/EKG's, senior care records)? Report findings @ -[No old charts were reviewed] Differential Diagnosis (chest pain, altered mental status, abdominal pain women, abdominal pain men, vaginal bleeding, weakness, fever, dyspnea, syncope, headache, dizziness, GI bleed, back pain, seizure, CVA, palpatations, mental health, musculoskeletal)? @ -[not applicable] EKG interpreted by me (3pts min.). @ -[As above] X-rays interpreted by me (1pt min.). @ -[None done] CT interpreted by me (1pt min.). @ -[None done] U/S interpreted by me (1pt. min.). @ -[None done] What testing was considered but not performed or refused? (CT, X-rays, U/S, labs)? Why? @ -[None] What meds were considered but not given or refused? Why? @ -[None] Did you discuss the management of the patient with other professionals (professionals i.e. JIM Suero, SUCTION ROLLER, lab, RT, psych nurse, geriatric social work professor, can vacuum tester, teacher, parking enforcement officer, case management associate)? Give summary @ -[No] Was smoking cessation discussed for >3mins.? @ -[No] Was critical care preformed (if so, how long)? @ -[No] Were there social determinants of health that impacted care today? How? (Homelessness, low income, unemployed, alcoholism, drug addiction, transportation, low edu. Level, literacy, decrease access to med. care, senior living, rehab)? @ -[No] Was there de-escalation of care discussed even if they declined (Discuss DNR or withdrawal of care, Hospice)? DNR status @ -[No] What co-morbidities impacted this encounter? (DM, HTN, Smoking, COPD, CAD, Cancer, CVA, ARF, Chemo, Hep., AIDS, mental health diagnosis, sleep apnea, morbid obesity)? @ -[None] Was patient admitted / discharged? Hospital course, mention meds given and route , prescriptions, significant lab abnormalities, going to OR and other pertinent info. @ -Discharged. This is a 77-year-old female who presents the emergency department with medication problem. Patient had a thorough history and physical exam performed while in the ED. Physical exam essentially unremarkable. Heart rate regular rate and rhythm, lungs to auscultation bilaterally. Nontender. Patient offers no specific complaints at the time of evaluation. She would like to be discharged home. He was instructed to take a second dose as scheduled. Initial blood pressure 190/90. Upon discharge patient's blood pressure 140s over 70 Recommend close follow-up with human capital analyst PCP in 1-2 days. Case discussed with KARUNA Florian who agrees with plan of care Undiagnosed new problem with uncertain prognosis? @ -[No] Drug Therapy requiring intensive monitoring for toxicity (Heparin, Nitro, Insuli n, Cardizem)? @ -[No] Were any procedures done? @ -[No] Diagnosis/symptom? @ -Anxiousness Acute, or Chronic, or Acute on Chronic? @ -Acute Uncomplicated (without systemic symptoms) or Complicated (systemic symptoms)? @ -Uncomplicated Side effects of treatment? @ -[No] Exacerbation, Progression, or Severe Exacerbation? @ -[No] Poses a threat to life or bodily function? How? (Chest pain, [place], [place], pneumonia, PE, COPD, DKA, ARF, appy, cholecystitis, CVA, Diverticulitis, Homicidal, Suicidal, threat to staff... and all critical care pts) @ -Low likelihood Disposition Clinical Impression: Anxiousness Disposition: HOME SELF-CARE Condition: Stable Additional Instructions: Please take your medications tomorrow as usual Please return to the nearest emergency department if symptoms worsen or persist Is patient prescribed a controlled substance at d/c from ED?: No Referrals: Zoila Bansal MD [Primary Care Provider] - 1-2 days Time of Disposition: 15:04
[2023-03-19 15:26] VITALS: BP 152/71; PULSE 60; TEMP 98.8
== END 2023-03-19 15:12 | disposition home or self-care (01) ==
LOC: EC 14:15
DX: F41.9 Anxiety disorder, unspecified (principal); I48.91 Unspecified atrial fibrillation; J45.909 Unspecified asthma, uncomplicated; M19.90 Unspecified osteoarthritis, unspecified site; G47.30 Sleep apnea, unspecified; E07.9 Disorder of thyroid, unspecified; Z79.51 Long term (current) use of inhaled steroids; Z79.1 Long term (current) use of non-steroidal anti-inflammatories (NSAID); Z79.890 Hormone replacement therapy; Z79.01 Long term (current) use of anticoagulants; Z88.8 Allergy status to other drugs, medicaments and biological substances; Z88.1 Allergy status to other antibiotic agents
CPT/HCPCS: 99283

== ENCOUNTER → 2023-05-08 | Outpatient (CLI) | payer MEDICARE ==
--- NOTE | 2023-05-08 17:29 | BD ---
EXAMINATION TYPE: Axial Bone Density DATE OF EXAM: 05/08/2023 CLINICAL HISTORY: 77 years old Female. ICD-10 CODE: Z12.31 SCREEN MAMMO Z78.0 MENOPAUSAL Height: 65.75 Weight: 194.4 FRAX RISK QUESTIONS: Alcohol (3 or more units per day): no Family History (Parent hip fracture): Mother Glucocorticoids (More than 3mos): no History of Fracture in Adulthood: Ankle Secondary Osteoporosis: 1. Type 1 Diabetes: no 2. Hyperthyroidism: no 3. Menopause before 45: no 4. Malnutrition: no 5. Chronic liver disease: no Rheumatoid Arthritis:no Current Tobacco Use: no RISK FACTORS HISTORY OF: Hip Fracture (Right/Left): no Spine Fracture: no History of Wrist Fracture: no Surgery to Spine/Hip(right/left)/Wrist (right/left): no Family History of Osteoporosis: Sister Active: yes Diet low in dairy products/other sources of calcium: no Postmenopausal woman: yes Take estrogen and/or progesterone medications: no Lost more than 2 inches in height since high school: yes Frequent falls: no Poor Health: no Hyperparathyroidism: no Adrenal Insufficiency: yes past 2.5 years MEDICATIONS: Prednisone or other steroids: no Thyroid Medications: Synthroid How Long: Past 14 yeaars Osteoporosis Medications: no Additional Medications: BP Meds, Cholesterol Meds, Multi Vit., Vit D Additional History: EXAM MEASUREMENTS: Bone mineral densitometry was performed using the [employer] System. Bone mineral density as measured about the Lumbar spine is: ----- L1-L4(G/cm2): 1.049 T Score Values are as follows: ----- L1: -2.0 ----- L2: -1.9 ----- L3: -0.9 ----- L4: 0.1 ----- L1-L4: 1.1 Z Score Values are as follows: ----- L1: -10 ----- L2: -0.9 ----- L3: 0.1 ----- L4: 1.1 ----- L1-L4: -0.1 Baseline Study Bone mineral density about the R hip (g/cm2): 0.844 Bone mineral density about the L hip (g/cm2): 0.849 T Score values are as follows: -----R Neck: -1.6 -----L Neck: -1.8 -----R Total: -1.3 -----L Total: -1.3 Z Score values are as follows: -----R Neck: -0.1 -----L Neck: -0..3 -----R Total: 0.0 -----L Total: 0.1 Baseline Study FRAX%s: The graph provided illustrates a 32.5% chance for a major osteoporotic fx and a 18.4% chance for the hips probability for fx in 10 years time. IMPRESSION: Osteopenia (T Score between -2.5 and -1). There is slightly increased risk of fracture and the patient may be considered for treatment. Re-Screen 2-5 years. NOTE: T-SCORE=SD OF THE YOUNG ADULT MEAN.
--- NOTE | 2023-05-09 21:16 | MM ---
Reason for Exam: Screening (asymptomatic). Last mammogram was performed 1 year(s) and 2 month(s) ago. Patient History: Menarche at age 14. Patient has no children. Postmenopausal. Estrogen for 5 years from age 45 until age 50. Maternal aunt had breast cancer, age 65. Risk Values: Alecia 5 year model risk: 1.8%. NCI Lifetime model risk: 3.4%. Prior Study Comparison: 03/01/2021 Bilateral Screening Mammogram, [facility]. 03/14/2022 Bilateral MG 3D screening mammo w/cad, [facility]. 03/22/2022 Right MG 3D work up w/cad RT, [facility]. Tissue Density: The breast tissue is heterogeneously dense. This may lower the sensitivity of mammography. Findings: Analyzed By CAD. Loop recorder device medial left CC view and a posterior depth. There is no suspicious group of microcalcifications or new suspicious mass in either breast. Overall Assessment: Benign, BI-RAD 2 Management: Screening Mammogram of both breasts in 1 year. . Patient should continue monthly self-breast exams. A clinical breast exam by your physician is recommended on an annual basis. This exam should not preclude additional follow-up of suspicious palpable abnormalities. Note on Alecia scores and lifetime risk: 1. A Alecia score greater than 3% is considered moderate risk. If this is the case, consider specialist referral to assess eligibility for a risk reducing agent. 2. If overall lifetime risk for the development of breast cancer is 20% or higher, the patient may qualify for future screening with alternating mammogram and breast MRI. Electronically signed and approved by: Francoise Clement M.D. Radiologist
== END | disposition home or self-care (01) ==
LOC: RADMAMWWP 14:52
PROVIDERS: ATTEND Family Medicine
DX: Z12.31 Encounter for screening mammogram for malignant neoplasm of breast (principal); M85.89 Other specified disorders of bone density and structure, multiple sites; Z78.0 Asymptomatic menopausal state; Z80.3 Family history of malignant neoplasm of breast
CPT/HCPCS: 77063; 77067; 77080

== ENCOUNTER 2023-08-08 08:16 | Day surgery (SDC) | payer MEDICARE ==
[2023-08-04 15:08] VITALS: BMI 31.6
[2023-08-08] MEDS: LACTATED RINGERS 1,000 ML IV SCH (09:48)
[2023-08-08] MEDS ORDERED: PROPOFOL 10 MG/ML 20 ML VIAL IV ONE (09:48)
[2023-08-08 10:00] VITALS: RESP 16; TEMP 97
--- NOTE | 2023-08-08 10:12 | P.PCN ---
Date of Procedure: 08/08/23 Procedure(s) Performed: BRIEF HISTORY: Patient is a 78-year-old pleasant white female scheduled for an elective colonoscopy as a part of screening for colon cancer. Her last colonoscopy was 15 years ago PROCEDURE PERFORMED: Colonoscopy with biopsy. PREOPERATIVE DIAGNOSIS: Screening for colon cancer. IV sedation per Anesthesia. PROCEDURE: After informed consent was obtained, the patient, was brought into the endoscopy unit. IV sedation was administered by Anesthesia under continuous monitoring. Digital rectal examination was normal. Initially the Olympus CF-160 flexible video colonoscope was then inserted in the rectum, gradually advanced into the cecum without any difficulty. Careful examination was performed as the scope was gradually being withdrawn. Ileocecal valve and the appendiceal orifice were visualized and appeared normal. Prep was excellent. Mucosa of the cecum, ascending colon, transverse colon, descending colon, appeared normal. In the distal sigmoid colon there was a 3 mm sessile polyp that was removed by cold biopsy. Rest of the sigmoid colon, and rectum appeared normal. Retroflexion was performed in the rectum and small internal hemorrhoids were seen. The patient tolerated the procedure well. IMPRESSION: 3 mm sessile; polyp status post cold biopsy Small internal hemorrhoids RECOMMENDATIONS: Findings of this examination were discussed with the patient as well as a family. She was advised to follow with the biopsy results. Continue with a high-fiber diet..
[2023-08-08 10:35] VITALS: BP 125/66; PULSE 51
== END 2023-08-08 11:01 | disposition home or self-care (01) ==
LOC: ORWHC2ENDO 08:16
PROVIDERS: ATTEND Internal Medicine Gastroenterology
DX: Z12.11 Encounter for screening for malignant neoplasm of colon (principal); D12.5 Benign neoplasm of sigmoid colon; K64.8 Other hemorrhoids; I48.91 Unspecified atrial fibrillation; I10 Essential (primary) hypertension; E78.5 Hyperlipidemia, unspecified; I73.9 Peripheral vascular disease, unspecified; E03.9 Hypothyroidism, unspecified; J45.909 Unspecified asthma, uncomplicated; G47.33 Obstructive sleep apnea (adult) (pediatric); Z79.51 Long term (current) use of inhaled steroids; Z79.899 Other long term (current) drug therapy; Z79.01 Long term (current) use of anticoagulants; Z79.890 Hormone replacement therapy; Z98.41 Cataract extraction status, right eye; Z98.42 Cataract extraction status, left eye; Z88.1 Allergy status to other antibiotic agents; Z98.890 Other specified postprocedural states
CPT/HCPCS: 88305; 45380; J2704

== ENCOUNTER 2023-09-10 11:12 | Inpatient (IN) | payer MEDICARE ==
--- NOTE | 2023-09-10 11:47 | ED ---
General Adult HPI - General Chief complaint: Chest Pain Stated complaint: chest pain Time Seen by Provider: 09/10/23 11:20 Source: patient, family, EMS, RN notes reviewed, old records reviewed Mode of arrival: EMS - History of Present Illness Initial comments: This is a 78-year-old female presents to the emergency department for chest tightness and anxiety. Patient states she has been really worried about her dog because the dog has been sick and the dog is 17 years old. Patient states that she did not sleep all night and about 4-5 o'clock this morning she noticed her heart rate was racing at about 110 beats a minute and she took her morning meds and it did not change so she became more worried and the tightness stayed until EMS arrived when they arrived they gave her 2 of Versed and the tightness immediately resolved. Patient denies any shortness of breath today however she is noted over the last few weeks that anytime she walks up steps she is more short of breath than normal. Patient denies any increased swelling to the legs or calf tenderness. Patient denies any recent fever chills or cough or patient has abdominal pain patient has nausea vomiting or diarrhea. - Related Data Home Medications Medication Instructions Recorded Confirmed Montelukast [Singulair] 10 mg PO DAILY 09/30/13 08/04/23 Rivaroxaban [Xarelto] 20 mg PO W/SUPPER 09/30/13 08/04/23 Fluticasone Nasal Gary [Flonase 1 spr EA NOSTRIL BID 06/21/16 08/04/23 Nasal Gary] Loratadine 10 mg PO QAM 09/30/20 08/04/23 Pravastatin Sodium [Pravachol] 20 mg PO HS 09/30/20 08/04/23 Albuterol Inhaler [Ventolin Hfa 1 - 2 puff INHALATION RT-Q6H PRN 12/05/20 08/04/23 Inhaler] Levothyroxine Sodium [Synthroid] 100 mcg PO DAILY 12/05/20 08/04/23 Cholecalciferol [Vitamin D3 (25 25 mcg PO DAILY 04/30/21 08/04/23 Mcg = 1000 Iu)] Flecainide [Tambocor] 50 mg PO Q12HR 04/30/21 08/04/23 Metoprolol Tartrate [Lopressor] 25 mg PO QAM 04/30/21 08/04/23 Multivitamins, Thera [Multivitamin 1 tab PO DAILY 04/30/21 08/04/23 (formulary)] diphenhydrAMINE HCL [Benadryl] 25 mg PO HS 04/30/21 08/04/23 Hydrocortisone [Cortef] 7.5 mg PO W/LUNCH 08/04/23 08/04/23 Hydrocortisone [Cortef] 15 mg PO QAM 08/04/23 08/04/23 traZODone HCL [Desyrel] 50 mg PO HS 08/04/23 08/04/23 Allergies Allergy/AdvReac Type Severity Reaction Status Date / Time levofloxacin [From Levaquin] AdvReac Confusion/n Verified 09/10/23 11:24 [email or web address] Review of Systems ROS Statement: Those systems with pertinent positive or pertinent negative responses have been documented in the HPI. ROS Other: All systems not noted in ROS Statement are negative. 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 but no longer takes med, scia nicholas, see Dr Beltran H&P, aura migraines states visual changes no headache, adrenal insufficency History of Any Multi-Drug Resistant Organisms: ESBL Date of last positivie culture/infection: 08/17/18 MDRO Source:: ESBL URINE Past Surgical History: Cardiac Ablation Additional Past Surgical History / Comment(s): Cardiac AblationX2, Brain tumor removal, santi cataracts, pain clinic procedure Past Anesthesia/Blood Transfusion Reactions: No Reported Reaction Additional Past Anesthesia/Blood Transfusion Reaction / Comment(s): no blood transfusion Past Psychological History: Anxiety Smoking Status: Never smoker Past Alcohol Use History: None Reported Past Drug Use History: None Reported - Past Family History Brother(s) Family Medical History: Cancer Sister(s) Family Medical History: Cancer General Exam - General Exam Comments Initial Comments: GENERAL: Patient is well-developed and well-nourished. Patient is nontoxic and well- hydrated and is in no acute distress. ENT: Neck is soft and supple. No significant lymphadenopathy is noted. Oropharynx is clear. Moist mucous membranes. Neck has full range of motion without eliciting any pain. EYES: The sclera were anicteric and conjunctiva were pink and moist. Extraocular movements were intact and pupils were equal round and reactive to light. Eyelids were unremarkable. PULMONARY: Unlabored respirations. Good breath sounds bilaterally. No audible rales rhonchi or wheezing was noted. CARDIOVASCULAR: Patient is a regular rate and rhythm with a heart rate at about 100 ABDOMEN: Soft and nontender with normal bowel sounds. SKIN: Skin is clear with no lesions or rashes and otherwise unremarkable. NEUROLOGIC: Patient is alert and oriented x3. Cranial nerves II through XII are grossly intact. Motor and sensory are also intact. Normal speech, volume and content. Symmetrical smile. MUSCULOSKELETAL: Normal extremities with adequate strength and full range of motion. No lower extremity swelling or edema. No calf tenderness. LYMPHATICS: No significant lymphadenopathy is noted PSYCHIATRIC: Normal psychiatric evaluation. Course Vital Signs 09/10/23 09/10/23 09/10/23 11:17 12:17 14:29 Temperature 98.3 F Pulse Rate 102 H 103 H 105 H Respiratory 18 20 20 Rate Blood Pressure 129/82 108/74 102/72 O2 Sat by Pulse 93 L 93 L 94 L Oximetry Medical Decision Making - Medical Decision Making EKG is interpreted by myself. EKG has atrial flutter at 103 bpm parable 122 QRS is 97 QT interval is 353 QTc is 413. Patient's EKG shows no ST segment elevation or depression Was pt. sent in by a medical professional or institution (JIM Suero, CONTROL SYSTEMS DESIGNER, urgent care, hospital, or residential...) When possible be specific @ -[No] Did you speak to anyone other than the patient for history (EMS, parent, family, police, friend...)? What history was obtained from this source @ -[No] Did you review nursing and triage notes (agree or disagree)? Why? @ -[I reviewed and agree with nursing and triage notes] Were old charts reviewed (outside hosp., previous admission, EMS record, old EKG, old radiological studies, urgent care reports/EKG's, residential records)? Report findings @ -I compared this chest x-ray with a previous chest x-ray and this chest x-ray showed some pulmonary edema. I reviewed lab work with this patient and CBC and a comprehensive panel all were similar to previous Differential Diagnosis (chest pain, altered mental status, abdominal pain women, abdominal pain men, vaginal bleeding, weakness, fever, dyspnea, syncope, headache, dizziness, GI bleed, back pain, seizure, CVA, palpatations, mental health, musculoskeletal)? @ -Differential Dyspnea: Coronary syndrome, arrhythmia, tamponade, asthma, COPD, pulmonary embolism, pneumonia, pneumothorax, pulmonary effusion, anaphylaxis, diabetic ketoacidosis, flailed chest, pulmonary contusion, diaphragmatic rupture, anemia, neuromuscular, this is not meant to be an all-inclusive list. EKG interpreted by me (3pts min.). @ -[As above] X-rays interpreted by me (1pt min.). @ -Chest x-ray shows pulmonary edema CT interpreted by me (1pt min.). @ -None done U/S interpreted by me (1pt. min.). @ -[None done] What testing was considered but not performed or refused? (CT, X-rays, U/S, labs)? Why? @ -[None] What meds were considered but not given or refused? Why? @ -[None] Did you discuss the management of the patient with other professionals (professionals i.e. , PA, CONTROL SYSTEMS DESIGNER, lab, RT, psych nurse, hospice social worker, palm gatherer, teacher, sales promotion officer, case resolution specialist)? Give summary @ -I spoke with Dr. Ricketts he agreed to admit the patient admit the patient wrote admitting orders Was smoking cessation discussed for >3mins.? @ -[No] Was critical care preformed (if so, how long)? @ -[No] Were there social determinants of health that impacted care today? How? (Homelessness, low income, unemployed, alcoholism, drug addiction, transportation, low edu. Level, literacy, decrease access to med. care, shelter, rehab)? @ -[No] Was there de-escalation of care discussed even if they declined (Discuss DNR or withdrawal of care, Hospice)? DNR status @ -[No] What co-morbidities impacted this encounter? (DM, HTN, Smoking, COPD, CAD, Cancer, CVA, ARF, Chemo, Hep., AIDS, mental health diagnosis, sleep apnea, morbid obesity)? @ -[None] Was patient admitted / discharged? Hospital course, mention meds given and route, prescriptions, significant lab abnormalities, going to OR and other pertinent info. @ -Patient had pulmonary edema on the chest x-ray and a BNP was elevated so I started the patient on Lasix. Undiagnosed new problem with uncertain prognosis? @ -[No] Drug Therapy requiring intensive monitoring for toxicity (Heparin, Nitro, Insulin, Cardizem)? @ -[No] Were any procedures done? @ -[No] Diagnosis/symptom? @ -Pulmonary edema Acute, or Chronic, or Acute on Chronic? @ -Acute Uncomplicated (without systemic symptoms) or Complicated (systemic symptoms)? @ -Complicated Side effects of treatment? @ -[No] Exacerbation, Progression, or Severe Exacerbation? @ -[No] Poses a threat to life or bodily function? How? (Chest pain, USA, SD, pneumonia, PE, COPD, DKA, ARF, appy, cholecystitis, CVA, Diverticulitis, Homicidal, Suicidal, threat to staff... and all critical care pts) @ -Yes this can worsen and patient could become hypoxic and cause end organ dysfunction - Lab Data Result diagrams: 09/10/23 11:49 09/10/23 11:49 Lab Results 09/10/23 09/10/23 09/10/23 Range/Units 11:49 11:49 11:49 WBC 9.1 (3.8-10.6) k/uL RBC 4.68 (3.80-5.40) m/uL Hgb 15.3 (11.4-16.0) gm/dL Hct 46.0 (34.0-46.0) % MCV 98.4 (80.0-100.0) fL MCH 32.6 (25.0-35.0) pg MCHC 33.2 (31.0-37.0) g/dL RDW 14.9 (11.5-15.5) % Plt Count 161 (150-450) k/uL MPV 9.0 Neutrophils % 82 % Lymphocytes % 9 % Monocytes % 7 % Eosinophils % 1 % Basophils % 0 % Neutrophils # 7.5 (1.3-7.7) k/uL Lymphocytes # 0.8 L (1.0-4.8) k/uL Monocytes # 0.6 (0-1.0) k/uL Eosinophils # 0.1 (0-0.7) k/uL Basophils # 0.0 (0-0.2) k/uL PT 11.8 (10.0-12.5) sec INR 1.1 (<1.2) APTT 27.4 (22.0-30.0) sec D-Dimer 0.46 (<0.60) mg/L FEU Sodium 141 (137-145) mmol/L Potassium 4.3 (3.5-5.1) mmol/L Chloride 110 H (98-107) mmol/L Carbon Dioxide 25 (22-30) mmol/L Anion Gap 6 mmol/L BUN 35 H (7-17) mg/dL Creatinine 0.96 (0.52-1.04) mg/dL Est GFR (CKD-EPI)AfAm 66 (>60 ml/min/1.73 sqM) Est GFR (CKD-EPI)NonAf 57 (>60 ml/min/1.73 sqM) Glucose 106 H (74-99) mg/dL Calcium 9.1 (8.4-10.2) mg/dL Magnesium 2.1 (1.6-2.3) mg/dL Total Bilirubin 0.5 (0.2-1.3) mg/dL AST 37 H (14-36) U/L ALT 28 (4-34) U/L Alkaline Phosphatase 109 (38-126) U/L Troponin I (0.000-0.034) ng/mL NT-Pro-B Natriuret Pep 6900 pg/mL Total Protein 6.4 (6.3-8.2) g/dL Albumin 3.6 (3.5-5.0) g/dL TSH <0.015 L (0.465-4.680) mIU/L Free T4 (0.78-2.19) ng/dL 09/10/23 09/10/23 Range/Units 11:49 11:49 WBC (3.8-10.6) k/uL RBC (3.80-5.40) m/uL Hgb (11.4-16.0) gm/dL Hct (34.0-46.0) % MCV (80.0-100.0) fL MCH (25.0-35.0) pg MCHC (31.0-37.0) g/dL RDW (11.5-15.5) % Plt Count (150-450) k/uL MPV Neutrophils % % Lymphocytes % % Monocytes % % Eosinophils % % Basophils % % Neutrophils # (1.3-7.7) k/uL Lymphocytes # (1.0-4.8) k/uL Monocytes # (0-1.0) k/uL Eosinophils # (0-0.7) k/uL Basophils # (0-0.2) k/uL PT (10.0-12.5) sec INR (<1.2) APTT (22.0-30.0) sec D-Dimer (<0.60) mg/L FEU Sodium (137-145) mmol/L Potassium (3.5-5.1) mmol/L Chloride (98-107) mmol/L Carbon Dioxide (22-30) mmol/L Anion Gap mmol/L BUN (7-17) mg/dL Creatinine (0.52-1.04) mg/dL Est GFR (CKD-EPI)AfAm (>60 ml/min/1.73 sqM) Est GFR (CKD-EPI)NonAf (>60 ml/min/1.73 sqM) Glucose (74-99) mg/dL Calcium (8.4-10.2) mg/dL Magnesium (1.6-2.3) mg/dL Total Bilirubin (0.2-1.3) mg/dL AST (14-36) U/L ALT (4-34) U/L Alkaline Phosphatase (38-126) U/L Troponin I <0.012 (0.000-0.034) ng/mL NT-Pro-B Natriuret Pep pg/mL Total Protein (6.3-8.2) g/dL Albumin (3.5-5.0) g/dL TSH (0.465-4.680) mIU/L Free T4 1.66 (0.78-2.19) ng/dL Disposition Clinical Impression: Acute pulmonary edema Disposition: ADMITTED IP TO THIS HOSP Referrals: Zoila Bansal MD [Primary Care Provider] - 1-2 days Time of Disposition: 14:37
[2023-09-10 12:12] LABS: Basophils % (A) 0 %; Eosinophils # (A) 0.1 k/uL (0-0.7); Eosinophils % (A) 1 %; HGB 15.3 gm/dL (11.4-16.0); Lymphocytes # (A) 0.8 k/uL (1.0-4.8); Lymphocytes % (A) 9 %; MCH 32.6 pg (25.0-35.0); MCHC 33.2 g/dL (31.0-37.0); MCV 98.4 fL (80.0-100.0); Monocytes # (A) 0.6 k/uL (0-1.0); Monocytes % (A) 7 %; Neutrophils # (A) 7.5 k/uL (1.3-7.7); Neutrophils % (A) 82 %; Platelet Count 161 k/uL (150-450); RBC 4.68 m/uL (3.80-5.40); RDW 14.9 % (11.5-15.5); WBC 9.1 k/uL (3.8-10.6)
[2023-09-10] MEDS: SODIUM CHLORIDE 0.9% 500 ML 500 ML IV STA (12:17)
[2023-09-10 12:29] LABS: INR 1.1 (<1.2); Partial Thromboplastin Time 27.4 sec (22.0-30.0); Prothrombin Time 11.8 sec (10.0-12.5)
[2023-09-10 12:35] LABS: ALT 28 U/L (4-34); AST 37 U/L (14-36); African American GFR (CKD) 66 (>60 ml/min/1.73 sqM); Albumin 3.6 g/dL (3.5-5.0); Alkaline Phosphatase 109 U/L (38-126); Anion Gap 6 mmol/L; Blood Urea Nitrogen 35 mg/dL (7-17); Calcium 9.1 mg/dL (8.4-10.2); Carbon Dioxide 25 mmol/L (22-30); Chloride 110 mmol/L (98-107); Glucose 106 mg/dL (74-99); Magnesium 2.1 mg/dL (1.6-2.3); Non-African American GFR(CKD) 57 (>60 ml/min/1.73 sqM); Potassium 4.3 mmol/L (3.5-5.1); Sodium 141 mmol/L (137-145); Total Bilirubin 0.5 mg/dL (0.2-1.3); Total Protein 6.4 g/dL (6.3-8.2)
[2023-09-10 12:42] LABS: NT-Pro-B-Type Natriuretic Pept 6900 pg/mL
--- NOTE | 2023-09-10 14:14 | XR ---
EXAMINATION TYPE: XR chest 2V DATE OF EXAM: 09/10/2023 12:34 PM CLINICAL INDICATION:Female, 78 years old with history of dysrhythmia; [facility] COMPARISON: Chest radiographs from 12/05/2020. TECHNIQUE: XR chest 2V Frontal and lateral views of the chest. FINDINGS: Lungs/Pleura: Hazy bilateral lower lung airspace opacities, slightly improved on the left when compar ed to the prior study from 2020. Suggestion of trace left pleural effusion is identified. No pneumoth orax. Pulmonary vascularity: Mild pulmonary vascular congestion. Heart/mediastinum: Cardiomediastinal silhouette is unremarkable. Musculoskeletal: No acute osseous pathology. IMPRESSION: Bibasilar hazy airspace opacities, right greater than left. May represent component of underlying pul monary edema with trace left pleural effusion.
[2023-09-10] MEDS: FUROSEMIDE 10 MG/ML 2 ML VIAL IV STA (14:36)
[2023-09-10] MEDS: FUROSEMIDE 10 MG/ML 4 ML VIAL IV STA (14:36)
[2023-09-10] MEDS: NITROGLYCERIN OINT 1 INCH/GM PACKET TOPICAL SCH (18:35)
[2023-09-11] MEDS: FLECAINIDE 50 MG TAB PO SCH ×2 (00:21→08:03)
[2023-09-11] MEDS: diphenhydrAMINE 25 MG CAP PO SCH (00:21)
[2023-09-11] MEDS: RIVAROXABAN 20 MG TAB PO SCH (00:21)
[2023-09-11] MEDS: FUROSEMIDE 10 MG/ML 2 ML VIAL IV SCH (00:24)
[2023-09-11] MEDS: LEVOTHYROXINE 100 MCG TAB PO SCH (06:10)
[2023-09-11] MEDS: HYDROCORTISONE 10 MG TAB PO SCH ×3 (06:28→15:01)
[2023-09-11] MEDS: METOPROLOL TARTRATE 25 MG TAB PO SCH (07:56)
[2023-09-11] MEDS: LORATADINE 10 MG TAB PO SCH (08:03)
[2023-09-11] MEDS: MONTELUKAST 10 MG TAB PO SCH (08:03)
[2023-09-11] MEDS: FLUTICASONE 50MCG/SPRAY NASAL 16GM EA NOSTRIL SCH (08:04)
[2023-09-11] MEDS: FUROSEMIDE 20 MG TAB PO SCH (08:06)
[2023-09-11] MEDS: ALBUTEROL NEBULIZED 2.5 MG/3 ML INHALATION PRN (08:39)
--- NOTE | 2023-09-11 10:11 | P.CRDCN ---
History of Present Illness History of present illness: HISTORY OF PRESENT ILLNESS: This is a 78-year-old female with a past medical history significant for atrial fibrillation with previous ablation, atrial flutter with previous ablation, hyp othyroidism, sick sinus syndrome, and COPD. Patient follows in the office with Dr. Beltran. We have been asked to see the patient in consultation for congestive heart failure. Patient examined at the bedside in the emergency room. Patient states that she has been under a lot of stress lately and upset as her dog who is 17 years old is not doing well and she believes that she is going to pass away soon. She states that she has not really been sleeping for the past few days. Patient states yesterday morning she woke up and began to have heart palpitations. She also reports having some mild chest tightness which has since resolved. She states she has been feeling short of breath the past few months going up and down the stairs. She does report a history of adrenal insufficiency and states she has gained about 30 pounds over the past 3 years. She denies any history of congestive heart failure. Patient was seen in the office in July 2023. At that time patient was in sinus mechanism. At the time of examination, she remains in atrial fibrillation/flutter with heart rate in the low 100s. Patient states she has been compliant with her Xarelto and has not missed any doses. She also reports a history of obstructive sleep apnea and states that she has been compliant with her CPAP at home. DIAGNOSTICS: - Chest xray bibasilar hazy airspace opacities, right greater than left. May represent component of underlying pulmonary edema with trace left pleural effusion - Laboratory data: WBC 9.1. Hemoglobin 15.3. Platelet count 161. D-dimer 0.46. Sodium 141. Potassium 4.3. BUN 35. Creatinine 0.96. Troponin 0.012. 0.062. proBNP 6900. TSH less than 0.015. Free T4 1.66. - Current home cardiac medications include metoprolol tartrate 25 mg daily, Xarelto 20 mg at night, Pravachol 20 mg at night, flecainide 50 mg twice a day. - Most recent echocardiogram obtained in the office in June 2023 revealed ejection fraction 50 to 55%, borderline LVH, trace to mild aortic regurgitation, mild to moderate tricuspid regurgitation, and mild MR. REVIEW OF SYSTEMS: At the time of my exam: CONSTITUTIONAL: Denies fever or chills. HEENT: Denies blurred vision, vision changes, or eye pain. Denies hemoptysis CARDIOVASCULAR: Denies chest pain. Denies orthopnea. Denies PND. Denies palpitations RESPIRATORY: Denies shortness of breath. GASTROINTESTINAL: Denies abdominal pain. Denies nausea or vomiting. HEMATOLOGIC: Denies bleeding disorders. GENITOURINARY: Denies any blood in urine. SKIN: Denies pruitis. Denies rash. PHYSICAL EXAM: VITAL SIGNS: Reviewed. GENERAL: Well-developed in no acute distress. HEENT: Head is normocephalic. Pupils are equal, round. Sclerae anicteric. Mucous membranes of the mouth are moist. Neck supple. No JVD or thyromegaly LUNGS: Respirations even and unlabored. Lungs essentially clear to auscultation bilaterally. HEART: Irregular rate and rhythm. S1 and S2 heard. ABDOMEN: Soft. Nondistended. Nontender. EXTREMITIES: Normal range of motion. No clubbing or cyanosis. Peripheral pulses intact. 1+ bilateral lower extremity edema NEUROLOGIC: Awake and alert. Oriented x 3. ASSESSMENT: Palpitations Paroxysmal atrial fibrillation/typical atrial flutter Mild heart failure with preserved EF, likely exacerbated by A-fib History of a flutter and A-fib ablation Hypothyroidism History of sick sinus syndrome History of COPD PLAN: Obtain limited echo to assess LV function Continue current dose of metoprolol Increase flecainide to 100 mg twice a day Discontinue IV Lasix. Begin oral Lasix 20 mg daily Continue telemetry monitoring NPO at midnight for possible cardioversion with Dr. Beltran tomorrow if patient does not convert to sinus mechanism Further recommendations pending patient course Nurse practitioner note has been reviewed by physician. Signing provider agrees with the documented findings, assessment, and plan of care documented by [employer] as a scribe. 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 but no longer takes med, sciatica, see Dr Beltran H&P, aura migraines states visual changes no headache, adrenal insufficency History of Any Multi-Drug Resistant Organisms: ESBL Date of last positivie culture/infection: 08/17/18 MDRO Source:: ESBL URINE Past Surgical History: Cardiac Ablation Additional Past Surgical History / Comment(s): Cardiac AblationX2, Brain tumor removal, santi cataracts, pain clinic procedure Past Anesthesia/Blood Transfusion Reactions: No Reported Reaction Additional Past Anesthesia/Blood Transfusion Reaction / Comment(s): no blood transfusion Past Psychological History: Anxiety Smoking Status: Never smoker Past Alcohol Use History: None Reported Past Drug Use History: None Reported - Past Family History Brother(s) Family Medical History: Cancer Sister(s) Family Medical History: Cancer Medications and Allergies Home Medications Medication Instructions Recorded Confirmed Type Montelukast [Singulair] 10 mg PO DAILY 09/30/13 09/10/23 History Rivaroxaban [Xarelto] 20 mg PO HS 09/30/13 09/10/23 History Fluticasone Nasal [place] [Flonase 1 spr EA NOSTRIL BID 06/21/16 09/10/23 History Nasal [place]] Loratadine 10 mg PO DAILY 09/30/20 09/10/23 History Pravastatin Sodium [Pravachol] 20 mg PO HS 09/30/20 09/10/23 History Albuterol Inhaler [Ventolin Hfa 1 - 2 puff INHALATION RT-Q6H PRN 12/05/20 09/10/23 History Inhaler] Cholecalciferol [Vitamin D3 (25 25 mcg PO DAILY 04/30/21 09/10/23 History Mcg = 1000 Iu)] Flecainide [Tambocor] 50 mg PO BID-W/MEALS 04/30/21 09/10/23 History Multivitamins, Thera [Multivitamin 1 tab PO DAILY 04/30/21 09/10/23 History (formulary)] diphenhydrAMINE HCL [Benadryl] 25 mg PO HS 04/30/21 09/10/23 History traZODone HCL [Desyrel] 50 mg PO HS PRN 08/04/23 09/10/23 History Hydrocortisone 2.5 mg PO DAILY@1500 09/10/23 09/10/23 History Hydrocortisone 7.5 mg PO DAILY@1100 09/10/23 09/10/23 History Hydrocortisone 15 mg PO DAILY@0630 09/10/23 09/10/23 History Levothyroxine Sodium [Tirosint] 100 mcg PO DAILY@0600 09/10/23 09/10/23 History Metoprolol Tartrate [Lopressor] 25 mg PO W/BRKFST 09/10/23 09/10/23 History Allergies Allergy/AdvReac Type Severity Reaction Status Date / Time levofloxacin [From Levaquin] AdvReac Confusion/n Verified 09/10/23 15:07 ausea Physical Exam Vitals: Vital Signs Temp Pulse Resp BP Pulse Ox 09/11/23 05:00 101 H 18 99/56 95 09/11/23 04:00 105 H 18 102/70 96 09/11/23 03:00 98 18 98/63 93 L 09/11/23 02:00 104 H 20 96/62 93 L 09/11/23 01:00 106 H 20 99/61 94 L 09/10/23 23:00 110 H 18 90/57 94 L 09/10/23 19:30 97.6 F 108 H 20 102/69 93 L 09/10/23 19:00 107 H 18 100/71 95 09/10/23 16:08 105 H 20 123/81 96 09/10/23 14:39 107 H 18 105/83 95 09/10/23 14:29 105 H 20 102/72 94 L 09/10/23 12:17 103 H 20 108/74 93 L 09/10/23 11:17 98.3 F 102 H 18 129/82 93 L Results 09/10/23 11:49 09/10/23 11:49 Cardiac Enzymes 09/10/23 09/10/23 Range/Units 11:49 11:49 AST 37 H (14-36) U/L Troponin I <0.012 (0.000-0.034) ng/mL Coagulation 09/10/23 Range/Units 11:49 PT 11.8 (10.0-12.5) sec APTT 27.4 (22.0-30.0) sec CBC 09/10/23 Range/Units 11:49 WBC 9.1 (3.8-10.6) k/uL RBC 4.68 (3.80-5.40) m/uL Hgb 15.3 (11.4-16.0) gm/dL Hct 46.0 (34.0-46.0) % Plt Count 161 (150-450) k/uL Comprehensive Metabolic Panel 09/10/23 Range/Units 11:49 Sodium 141 (137-145) mmol/L Potassium 4.3 (3.5-5.1) mmol/L Chloride 110 H (98-107) mmol/L Carbon Dioxide 25 (22-30) mmol/L BUN 35 H (7-17) mg/dL Creatinine 0.96 (0.52-1.04) mg/dL Glucose 106 H (74-99) mg/dL Calcium 9.1 (8.4-10.2) mg/dL AST 37 H (14-36) U/L ALT 28 (4-34) U/L Alkaline Phosphatase 109 (38-126) U/L Total Protein 6.4 (6.3-8.2) g/dL Albumin 3.6 (3.5-5.0) g/dL Current Medications Generic Name Dose Route Start Last Admin Trade Name Freq PRN Reason Stop Dose Admin Albuterol Sulfate 2.5 mg 09/10/23 22:06 Albuterol Nebulized 2.5 Mg/3 Ml INHALATION RT-Q6H PRN Shortness Of Breath Diphenhydramine HCl 25 mg 09/10/23 22:15 09/11/23 00:21 Diphenhydramine 25 Mg Cap PO 25 mg HS [place] Administration Flecainide Acetate 50 mg 09/10/23 22:15 09/11/23 00:21 Flecainide 50 Mg Tab PO 50 mg BID-W/MEALS [place] Administration Fluticasone Propionate 1 spray 09/11/23 09:00 Fluticasone 50mcg/Man[place] Nasal 16gm EA NOSTRIL BID [place] Furosemide 20 mg 09/10/23 22:00 09/11/23 06:10 Furosemide 10 Mg/Ml 2 Ml Vial IV 20 mg Q8H [place] Administration Hydrocortisone 2.5 mg 09/11/23 15:00 Hydrocortisone 10 Mg Tab PO DAILY@1500 [place] Hydrocortisone 7.5 mg 09/11/23 11:00 Hydrocortisone 10 Mg Tab PO DAILY@1100 [place] Hydrocortisone 15 mg 09/11/23 06:30 09/11/23 06:28 Hydrocortisone 10 Mg Tab PO 15 mg DAILY@0630 [place] Administration Levothyroxine Sodium 100 mcg 09/11/23 06:00 09/11/23 06:10 Levothyroxine 100 Mcg Tab PO 100 mcg DAILY@0600 [facility] Administration Loratadine 10 mg 09/11/23 09:00 Loratadine 10 Mg Tab PO DAILY [facility] Metoprolol Tartrate 25 mg 09/11/23 07:30 Metoprolol Tartrate 25 Mg Tab PO W/BRKFST [facility] Montelukast Sodium 10 mg 09/11/23 09:00 Montelukast 10 Mg Tab PO DAILY [facility] Nitroglycerin 1 inch 09/10/23 18:00 09/11/23 06:11 Nitroglycerin Oint 1 Inch/Gm Packet TOPICAL 09/11/23 18:01 Not Given Q6HR [facility] Rivaroxaban 20 mg 09/10/23 22:15 09/11/23 00:21 Rivaroxaban 20 Mg Tab PO 20 mg HS [facility] Administration Protocol 09/10/23 11:49 09/10/23 11:49
--- NOTE | 2023-09-11 11:23 | P.HPIM ---
History of Present Illness H&P Date: 09/11/23 This is a 78-year-old female patient of Dr. Bansal who presented to the ER with complaints of chest tightness, increased anxiety and shortness of breath. Patient reports that she's had increased stress due to her elderly dog being sick. Patient states that she noticed her heart rate was racing this a.m. without improvement with morning medication. Patient reports that she's also noticed increased shortness of breath over the past few days. Patient does have a past medical history of atrial fibrillation in which she is maintained on Xarelto, asthma, hyperlipidemia, hypertension, osteoporosis, sleep apnea, thyroid disorder, vascular disorder, restless leg syndrome, history of brain tumor removal.chest x-ray in ER showing bibasilar hazy airspace opacities right greater than left may represent component of underlying pulmonary edema with trace left pleural effusion.EKG completed showing atrial flutter/tachycardia with RVR heart rate 100. D-dimer 0.46 creatinine 0.96 bun 35 initial troponin 0.012 BNP 6900. at this time patient will be admitted cardiology services consulted also consulted pulmonary services possible pleural effusion. Patient was given IV Lasix. Patient reports improvement with overall shortness of breath. 2-D echo has been ordered per cardiology Review of Systems please refer to HPI otherwise unremarkable 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 but no longer takes med, sciatica, see Dr Beltran H&P, aura migraines states visual changes no headache, adrenal insufficency History of Any Multi-Drug Resistant Organisms: ESBL Date of last positivie culture/infection: 08/17/18 MDRO Source:: ESBL URINE Past Surgical History: Cardiac Ablation Additional Past Surgical History / Comment(s): Cardiac AblationX2, Brain tumor removal, santi cataracts, pain clinic procedure Past Anesthesia/Blood Transfusion Reactions: No Reported Reaction Additional Past Anesthesia/Blood Transfusion Reaction / Comment(s): no blood transfusion Past Psychological History: Anxiety Smoking Status: Never smoker Past Alcohol Use History: None Reported Past Drug Use History: None Reported - Past Family History Brother(s) Family Medical History: Cancer Sister(s) Family Medical History: Cancer Medications and Allergies Home Medications Medication Instructions Recorded Confirmed Type Montelukast [Singulair] 10 mg PO DAILY 09/30/13 09/10/23 History Rivaroxaban [Xarelto] 20 mg PO HS 09/30/13 09/10/23 History Fluticasone Nasal [place] [Flonase 1 spr EA NOSTRIL BID 06/21/16 09/10/23 History Nasal [place]] Loratadine 10 mg PO DAILY 09/30/20 09/10/23 History Pravastatin Sodium [Pravachol] 20 mg PO HS 09/30/20 09/10/23 History Albuterol Inhaler [Ventolin Hfa 1 - 2 puff INHALATION RT-Q6H PRN 12/05/20 09/10/23 History Inhaler] Cholecalciferol [Vitamin D3 (25 25 mcg PO DAILY 04/30/21 09/10/23 History Mcg = 1000 Iu)] Flecainide [Tambocor] 50 mg PO BID-W/MEALS 04/30/21 09/10/23 History Multivitamins, Thera [Multivitamin 1 tab PO DAILY 04/30/21 09/10/23 History (formulary)] diphenhydrAMINE HCL [Benadryl] 25 mg PO HS 04/30/21 09/10/23 History traZODone HCL [Desyrel] 50 mg PO HS PRN 08/04/23 09/10/23 History Hydrocortisone 2.5 mg PO DAILY@1500 09/10/23 09/10/23 History Hydrocortisone 7.5 mg PO DAILY@1100 09/10/23 09/10/23 History Hydrocortisone 15 mg PO DAILY@0630 09/10/23 09/10/23 History Levothyroxine Sodium [Tirosint] 100 mcg PO DAILY@0600 09/10/23 09/10/23 History Metoprolol Tartrate [Lopressor] 25 mg PO W/BRKFST 09/10/23 09/10/23 History Allergies Allergy/AdvReac Type Severity Reaction Status Date / Time levofloxacin [From Levaquin] AdvReac Confusion/n Verified 09/10/23 15:07 ausea Physical Exam Vitals: Vital Signs Temp Pulse Resp BP Pulse Ox 09/11/23 11:00 93 18 86/61 94 L 09/11/23 08:52 106 H 09/11/23 08:41 108 H 09/11/23 07:57 101 H 18 90/50 97 09/11/23 05:00 101 H 18 99/56 95 09/11/23 04:00 105 H 18 102/70 96 09/11/23 03:00 98 18 98/63 93 L 09/11/23 02:00 104 H 20 96/62 93 L 09/11/23 01:00 106 H 20 99/61 94 L 09/10/23 23:00 110 H 18 90/57 94 L 09/10/23 19:30 97.6 F 108 H 20 102/69 93 L 09/10/23 19:00 107 H 18 100/71 95 09/10/23 16:08 105 H 20 123/81 96 09/10/23 14:39 107 H 18 105/83 95 09/10/23 14:29 105 H 20 102/72 94 L 09/10/23 12:17 103 H 20 108/74 93 L 09/10/23 11:17 98.3 F 102 H 18 129/82 93 L Head normocephalic Neck supple Lungs clear to auscultation bilaterally no wheezing or crackles Heart irregular heart rate known A. fib Abdomen is soft nontender nondistended positive bowel sounds no hepa tosplenomegaly Extremities no edema Neuro alert and orientated to 3 Results CBC & Chem 7: 09/10/23 11:49 09/10/23 11:49 Labs: Abnormal Lab Results - Last 24 Hours (Table) 09/10/23 09/10/23 09/11/23 Range/Units 11:49 11:49 07:59 Lymphocytes # 0.8 L (1.0-4.8) k/uL Chloride 110 H (98-107) mmol/L BUN 35 H (7-17) mg/dL Glucose 106 H (74-99) mg/dL AST 37 H (14-36) U/L Troponin I 0.062 H* (0.000-0.034) ng/mL TSH <0.015 L (0.465-4.680) mIU/L Assessment and Plan Assessment: 1. palpitations with shortness of breath 2. paroxysmal atrial fibrillation/atrial flutter 3. Acute CHF exacerbation 4. history of hypothyroidism. TSH was low at 0.015 we'll decrease patient's dose of Synthroid 5. History of adrenal insufficiency patient maintained on Cortef 6. History of anxiety 7. History of COPD 8. History of sick sinus syndrome At this time patient will be admitted Home meds resumed Patient was given IV Lasix Pulmonary and cardiology services consulted 2-D echo ordered Time with Patient: Greater than 30 (Greater than 60% of the total time spent in counseling and coordination of care)
[2023-09-11 12:27] LABS: Glucose,Whole Blood 105 mg/dL (70-110)
--- NOTE | 2023-09-11 14:20 | CT ---
EXAMINATION TYPE: CT brain wo con DATE OF EXAM: 09/11/2023 COMPARISON: 12/05/2020 HISTORY: 78-year-old female with confusion, Change in mentation TECHNIQUE: Examination was done in axial plane without intravenous contrast. Coronal and sagittal r econstructions performed. CT DLP: 1125.4 mGycm Automated exposure control for dose reduction was used. FINDINGS: There is no evidence of acute intracranial hemorrhage, acute ischemic changes, mass, mass-effect, or extra-axial fluid collection. There is no effacement of cerebral sulci or basal subarachnoid cister ns. There is no hydrocephalus. There is no midline shift. Angela-white matter distinction is preserv ed. Left frontal craniotomy flap. Patchy encephalomalacia anterior inferior left frontal lobe is unchange d probably previous traumatic insult. 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 Paranasal sinuses and ma stoid air cells well pneumatized. IMPRESSION: Previous left frontal craniotomy flap and unchanged patchy encephalomalacia inferior left frontal lob e, probably sequela of prior injury. No acute intracranial abnormality seen.
--- NOTE | 2023-09-11 16:46 | P.CNPUL ---
History of Present Illness Consult date: 09/11/23 Requesting physician: Carmelo Ricketts Reason for consult: dyspnea Chief complaint: Palpitations, shortness of breath History of present illness: This is a 78-year-old female patient with a known history of chronic bronchial asthma, atrial fibrillation, hyperlipidemia, hypertension, hypothyroidism who presented here to the emergency room yesterday with chest pain and anxiety. She had woken up in the morning noticing that her heart was racing up to 110 bpm and took her morning medications without much improvement. EMS was called and gave her 2 of Versed and the tightness resolved. She does have occasional dyspnea on exertion. He is seen today in consultation in the emergency department. She is currently sitting up in a chair at the bedside. Awake and alert in no acute distress. She is maintaining good O2 saturations in the 90s on room air. Afebrile. Hemodynamically stable. Chest x-ray revealed bibasilar airspace opacities right greater than left. Underlying pulmonary edema with trace left pleural effusion. CT scan of the brain revealed no acute intracranial abnormalities. White count 9.1. Hemoglobin 15.3. Platelets 161. D-dimer 0.46. Sodium 141. Potassium 4.3. Bicarb 25. BUN 35. Creatinine 0.96. Glucose 106. Troponin 0.012, 0.062, 0.049. proBNP 6900. TSH less than 0.015. T41.66. Review of Systems REVIEW OF SYSTEMS: CONSTITUTIONAL: Denies any recent significant weight loss or weight gain. EYES: Denies change in vision. EARS, NOSE, MOUTH, THROAT: Denies headaches, denies sore throat. CARDIOVASCULAR: Positive for chest pain, palpitations no syncopal episodes. RESPIRATORY: Denies shortness of breath, cough, congestion or hemoptysis. GASTROINTESTINAL: Denies change in appetite, denies abdominal pain GENITOURINARY: Denies hematuria, denies infections. MUSKULOSKELETAL: Denies pain, denies swelling. INTEGUMENTARY: Denies rash, denies eczema. NEUROLOGICAL: Denies recent memory loss, no recent seizure activity. PSYCHIATRIC: Denies anxiety, denies depression. HEMATOLOGIC/LYMPHATIC: Denies anemia, denies enlarged lymph nodes. 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 but no longer takes med, sciatica, see Dr Beltran H&P, aura migraines states visual changes no headache, adrenal insufficency History of Any Multi-Drug Resistant Organisms: ESBL Date of last positivie culture/infection: 08/17/18 MDRO Source:: ESBL URINE Past Surgical History: Cardiac Ablation Additional Past Surgical History / Comment(s): Cardiac AblationX2, Brain tumor removal, santi cataracts, pain clinic procedure Past Anesthesia/Blood Transfusion Reactions: No Reported Reaction Additional Past Anesthesia/Blood Transfusion Reaction / Comment(s): no blood transfusion Past Psychological History: Anxiety Smoking Status: Never smoker Past Alcohol Use History: None Reported Past Drug Use History: None Reported - Past Family History Brother(s) Family Medical History: Cancer Sister(s) Family Medical History: Cancer Medications and Allergies Home Medications Medication Instructions Recorded Confirmed Type Montelukast [Singulair] 10 mg PO DAILY 09/30/13 09/10/23 History Rivaroxaban [Xarelto] 20 mg PO HS 09/30/13 09/10/23 History Fluticasone Nasal [place] [Flonase 1 spr EA NOSTRIL BID 06/21/16 09/10/23 History Nasal [place]] Loratadine 10 mg PO DAILY 09/30/20 09/10/23 History Pravastatin Sodium [Pravachol] 20 mg PO HS 09/30/20 09/10/23 History Albuterol Inhaler [Ventolin Hfa 1 - 2 puff INHALATION RT-Q6H PRN 12/05/20 09/10/23 History Inhaler] Cholecalciferol [Vitamin D3 (25 25 mcg PO DAILY 04/30/21 09/10/23 History Mcg = 1000 Iu)] Flecainide [Tambocor] 50 mg PO BID-W/MEALS 04/30/21 09/10/23 History Multivitamins, Thera [Multivitamin 1 tab PO DAILY 04/30/21 09/10/23 History (formulary)] diphenhydrAMINE HCL [Benadryl] 25 mg PO HS 04/30/21 09/10/23 History traZODone HCL [Desyrel] 50 mg PO HS PRN 08/04/23 09/10/23 History Hydrocortisone 2.5 mg PO DAILY@1500 09/10/23 09/10/23 History Hydrocortisone 7.5 mg PO DAILY@1100 09/10/23 09/10/23 History Hydrocortisone 15 mg PO DAILY@0630 09/10/23 09/10/23 History Levothyroxine Sodium [Tirosint] 100 mcg PO DAILY@0600 09/10/23 09/10/23 History Metoprolol Tartrate [Lopressor] 25 mg PO W/BRKFST 09/10/23 09/10/23 History Allergies Allergy/AdvReac Type Severity Reaction Status Date / Time levofloxacin [From Levaquin] AdvReac Confusion/n Verified 09/10/23 15:07 ausea Physical Exam Vitals: Vital Signs Temp Pulse Resp BP Pulse Ox 09/11/23 14:00 95 16 116/69 94 L 09/11/23 11:00 93 18 86/61 94 L 09/11/23 08:52 106 H 09/11/23 08:41 108 H 09/11/23 07:57 101 H 18 90/50 97 09/11/23 05:00 101 H 18 99/56 95 09/11/23 04:00 105 H 18 102/70 96 09/11/23 03:00 98 18 98/63 93 L 09/11/23 02:00 104 H 20 96/62 93 L 09/11/23 01:00 106 H 20 99/61 94 L 09/10/23 23:00 110 H 18 90/57 94 L 09/10/23 19:30 97.6 F 108 H 20 102/69 93 L 09/10/23 19:00 107 H 18 100/71 95 GENERAL EXAM: Alert, pleasant 78-year-old female, up in a chair, on room air, comfortable in no apparent distress. HEAD: Normocephalic. EYES: Normal reaction of pupils, equal size. NOSE: Clear with pink turbinates. THROAT: No erythema or exudates. NECK: No masses, no JVD. CHEST: No chest wall deformity. LUNGS: Equal air entry with faint crackles in the posterior bases. CVS: S1 and S2 normal with no audible murmur, regular rhythm. ABDOMEN: No hepatosplenomegaly, normal bowel sounds, no guarding or rigidity. SPINE: No scoliosis or deformity SKIN: No rashes CENTRAL NERVOUS SYSTEM: No focal deficits, tone is normal in all 4 extremities. EXTREMITIES: There is 1+ peripheral edema. No clubbing, no cyanosis. Peripheral pulses are intact. Results - Laboratory Findings CBC and BMP: 09/10/23 11:49 09/10/23 11:49 PT/INR, D-dimer PT 11.8 sec (10.0-12.5) 09/10/23 11:49 INR 1.1 (<1.2) 09/10/23 11:49 D-Dimer 0.46 mg/L FEU (<0.60) 09/10/23 11:49 Abnormal lab findings: Abnormal Labs 09/10/23 09/10/23 09/11/23 11:49 11:49 07:59 Lymphocytes # 0.8 L Chloride 110 H BUN 35 H Glucose 106 H AST 37 H Troponin I 0.062 H* TSH <0.015 L 09/11/23 11:16 Lymphocytes # Chloride BUN Glucose AST Troponin I 0.049 H* TSH - Diagnostic Findings Chest x-ray: image reviewed Assessment and Plan Assessment: Chest pain and palpitations secondary to atrial flutter History of atrial fibrillation/flutter anticoagulated with Xarelto, previous ablations x 2 Dyspnea secondary to above Lifelong non-smoker History of mild intermittent chronic bronchial asthma Hypertension Hyperlipidemia Hypothyroidism History of brain tumor, post surgical resection Plan: The patient was seen and evaluated Chest x-ray, labs and medications reviewed Currently stable and on room air Continued on Singulair, albuterol as needed Cardiology consulted Echocardiogram pending May consider cardioversion in a.m. We will continue to follow and make further recommendations based on her clinical status I have personally seen and examined the patient, performed the documentation and the assessment and plan as written. Number of minutes spent on the visit: 20.
--- NOTE | 2023-09-11 18:03 | CA ---
Transthoracic Echo Report Name: Xochitl Nunez Age: 78 Gender: F : 1945 Exam Date: 09/11/2023 12:37 Exam Location: [place] [facility] Ht (in): 66 Wt (lb): 198 Ordering Physician: Kareen Hi Attending/Referring Phys: [id number], [place] [employer] Desk Associate Keyonna Zurita RCS Procedure CPT: Indications: LV function Cardiac Hx: Technical Quality: Technically difficult study Contrast 1: Definity Total Dose (mL): 2 Contrast 2: Total Dose (mL): MEASUREMENTS (Male / Female) Normal Values 2D ECHO LV Diastolic Volume MOD BP 75.7 cm??? 67 - 155 / 56 - 104 cm??? LV Systolic Volume MOD BP 28.0 cm??? 22 - 58 / 19 - 49 cm??? LV Ejection Fraction MOD BP 63.0 % >= 55 % LV Cardiac Index MOD BP 1974.1 cm???/min???m??? LV Diastolic Volume MOD 4C 82.4 cm??? LV Systolic Volume MOD 4C 28.0 cm??? LV Ejection Fraction MOD 4C 66.0 % LV Cardiac Index MOD 4C 2252.4 cm???/min???m??? LV Diastolic Length 4C 8.0 cm LV Systolic Length 4C 6.6 cm LV Diastolic Volume MOD 2C 66.3 cm??? LV Systolic Volume MOD 2C 27.0 cm??? LV Ejection Fraction MOD 2C 59.2 % LV Cardiac Index MOD 2C 1625.1 cm???/min???m??? LV Diastolic Length 2C 7.6 cm LV Systolic Length 2C 6.3 cm FINDINGS Left Ventricle Left ventricular ejection fraction is estimated at 55-60 %. Left ventricular cavity size normal. No obvious regional wall motion abnormalities. Right Ventricle Right ventricle not assessed. Right Atrium Right atrium not assessed. Left Atrium Left atrium not assessed. Mitral Valve Mitral valve not assessed. Aortic Valve Aortic valve not assessed. Tricuspid Valve Tricuspid valve not assessed. Pulmonic Valve Pulmonic valve not assessed. Pericardium No pericardial effusion. Aorta Aortic root and proximal ascending aorta not assessed. CONCLUSIONS Normal LV function Previewed by: Dr. Luis Sheridan MD (Electronically Signed) Final Date: 11 September 2023 18:02
[2023-09-12 06:32] LABS: Basophils # (A) 0.1 k/uL (0-0.2); Basophils % (A) 1 %; Eosinophils # (A) 0.2 k/uL (0-0.7); Eosinophils % (A) 2 %; HCT 46.6 % (34.0-46.0); HGB 14.9 gm/dL (11.4-16.0); Lymphocytes # (A) 1.5 k/uL (1.0-4.8); Lymphocytes % (A) 18 %; MCH 31.8 pg (25.0-35.0); MCHC 32.1 g/dL (31.0-37.0); MCV 99.1 fL (80.0-100.0); Mean Platelet Volume 9.5; Monocytes # (A) 0.8 k/uL (0-1.0); Monocytes % (A) 10 %; Neutrophils # (A) 5.5 k/uL (1.3-7.7); Neutrophils % (A) 67 %; Platelet Count 159 k/uL (150-450); RDW 14.4 % (11.5-15.5); WBC 8.2 k/uL (3.8-10.6)
[2023-09-12 06:39] LABS: ALT 22 U/L (4-34); AST 30 U/L (14-36); African American GFR (CKD) 52 (>60 ml/min/1.73 sqM); Albumin 3.3 g/dL (3.5-5.0); Alkaline Phosphatase 88 U/L (38-126); Anion Gap 2 mmol/L; Blood Urea Nitrogen 38 mg/dL (7-17); Calcium 8.6 mg/dL (8.4-10.2); Carbon Dioxide 28 mmol/L (22-30); Chloride 106 mmol/L (98-107); Glucose 92 mg/dL (74-99); Non-African American GFR(CKD) 45 (>60 ml/min/1.73 sqM); Sodium 136 mmol/L (137-145); Total Bilirubin 0.8 mg/dL (0.2-1.3)
[2023-09-12] MEDS ORDERED: SODIUM CHLORIDE 0.9% 1,000 ML IV SCH (08:45)
[2023-09-12] MEDS: LEVOTHYROXINE 88 MCG TAB PO SCH (08:58)
--- NOTE | 2023-09-12 09:10 | P.PN ---
Subjective Progress Note Date: 09/12/23 This is a 78-year-old female patient of Dr. Bansal who presented to the ER with complaints of chest tightness, increased anxiety and shortness of breath. Patient reports that she's had increased stress due to her elderly dog being sick. Patient states that she noticed her heart rate was racing this a.m. without improvement with morning medication. Patient reports that she's also noticed increased shortness of breath over the past few days. Patient does have a past medical history of atrial fibrillation in which she is maintained on Xarelto, asthma, hyperlipidemia, hypertension, osteoporosis, sleep apnea, thyroid disorder, vascular disorder, restless leg syndrome, history of brain tumor removal.chest x-ray in ER showing bibasilar hazy airspace opacities right greater than left may represent component of underlying pulmonary edema with trace left pleural effusion.EKG completed showing atrial flutter/tachycardia with RVR heart rate 100. D-dimer 0.46 creatinine 0.96 bun 35 initial troponin 0.012 BNP 6900. at this time patient will be admitted cardiology services consulted also consulted pulmonary services possible pleural effusion. Patient was given IV Lasix. Patient reports improvement with overall shortness of breath. 2-D echo has been ordered per cardiology on 09/12/2023 patient is alert and oriented 3.family patient had episode of repeating herself yesterday family requesting head CT. Head CT was completed showing previous left frontal craniotomy flap and unchanged patchy encephalomalacia inferior left frontal lobe probably sequela of prior injury. No acute intracranial abnormality seen. Patient does have a history of brain tumor removal 15 years ago. Patient has returned to baseline no new complaints. Plans for cardioversion today per cardiology.current vital signs temp 97.0, heart rate 104, respiratory rate 18, blood pressure 118/78 with pulse ox 97 on room air Objective - Vital Signs Vital signs: Vital Signs Temp 97.0 F L 09/12/23 08:53 Pulse 130 H 09/12/23 09:00 Resp 18 09/12/23 08:53 BP 118/78 09/12/23 08:53 Pulse Ox 97 09/12/23 08:53 FiO2 - Exam Head normocephalic Neck supple Lungs clear to auscultation bilaterally no wheezing or crackles Heart irregular heart rate known A. fib Abdomen is soft nontender nondistended positive bowel sounds no hepatosplenomegaly Extremities no edema Neuro alert and orientated to 3 - Labs CBC & Chem 7: 09/12/23 05:57 09/12/23 05:57 Labs: Abnormal Lab Results - Last 24 Hours (Table) 09/11/23 09/12/23 09/12/23 Range/Units 11:16 05:57 05:57 Hct 46.6 H (34.0-46.0) % Sodium 136 L (137-145) mmol/L BUN 38 H (7-17) mg/dL Creatinine 1.16 H (0.52-1.04) mg/dL Troponin I 0.049 H* (0.000-0.034) ng/mL Total Protein 6.0 L (6.3-8.2) g/dL Albumin 3.3 L (3.5-5.0) g/dL Assessment and Plan Assessment: 1. palpitations with shortness of breath 2. paroxysmal atrial fibrillation/atrial flutter 3. Acute CHF exacerbation 4. history of hypothyroidism. TSH was low at 0.015 we'll decrease patient's dose of Synthroid 5. History of adrenal insufficiency patient maintained on Cortef 6. History of anxiety 7. History of COPD 8. History of sick sinus syndrome 9.history of brain tumor removal possibly 15 years ago At this time patient will be admitted Home meds resumed Patient was given IV Lasix Pulmonary and cardiology services consulted 2-D echo ordered plans for cardioversion today for 2023
--- NOTE | 2023-09-12 10:42 | P.PN ---
Subjective HISTORY OF PRESENT ILLNESS: This is a 78-year-old female with a past medical history significant for atrial fibrillation with previous ablation, atrial flutter with previous ablation, hypothyroidism, sick sinus syndrome, and COPD. Patient follows in the office with Dr. Beltran. We have been asked to see the patient in consultation for congestive heart failure. Patient examined at the bedside in the emergency room. Patient states that she has been under a lot of stress lately and upset as her dog who is 17 years old is not doing well and she believes that she is going to pass away soon. She states that she has not really been sleeping for the past few days. Patient states yesterday morning she woke up and began to have heart palpitations. She also reports having some mild chest tightness which has since resolved. She states she has been feeling short of breath the past few months going up and down the stairs. She does report a history of adrenal insufficiency and states she has gained about 30 pounds over the past 3 years. She denies any history of congestive heart failure. Patient was seen in the office in July 2023. At that time patient was in sinus mechanism. At the time of examination, she remains in atrial fibrillation/flutter with heart rate in the low 100s. Patient states she has been compliant with her Xarelto and has not missed any doses. She also reports a history of obstructive sleep apnea and states that she has been compliant with her CPAP at home. DIAGNOSTICS: - Chest xray bibasilar hazy airspace opacities, right greater than left. May represent component of underlying pulmonary edema with trace left pleural effusion - Laboratory data: WBC 9.1. Hemoglobin 15.3. Platelet count 161. D-dimer 0.46. Sodium 141. Potassium 4.3. BUN 35. Creatinine 0.96. Troponin 0.012. 0.062. proBNP 6900. TSH less than 0.015. Free T4 1.66. - Current home cardiac medications include metoprolol tartrate 25 mg daily, Xarelto 20 mg at night, Pravachol 20 mg at night, flecainide 50 mg twice a day. - Most recent echocardiogram obtained in the office in June 2023 revealed ejection fraction 50 to 55%, borderline LVH, trace to mild aortic regurgitation, mild to moderate tricuspid regurgitation, and mild MR. 09/12/2023 Patient examined this morning at the bedside. Patient remains in the emergency room. Patient currently denies chest pain or pressure. She denies shortness of breath. Bedside telemetry reveals atrial fibrillation. Echocardiogram completed revealing ejection fraction 55 to 60%. PHYSICAL EXAM: VITAL SIGNS: Reviewed. GENERAL: Well-developed in no acute distress. HEENT: Head is normocephalic. Pupils are equal, round. Sclerae anicteric. Mucous membranes of the mouth are moist. Neck supple. No JVD or thyromegaly LUNGS: Respirations even and unlabored. Lungs essentially clear to auscultation bilaterally. HEART: Irregular rate and rhythm. S1 and S2 heard. ABDOMEN: Soft. Nondistended. Nontender. EXTREMITIES: Normal range of motion. No clubbing or cyanosis. Peripheral pulses intact. 1+ bilateral lower extremity edema NEUROLOGIC: Awake and alert. Oriented x 3. ASSESSMENT: Palpitations Paroxysmal atrial fibrillation/typical atrial flutter Mild heart failure with preserved EF, likely exacerbated by A-fib History of a flutter and A-fib ablation Hypothyroidism History of sick sinus syndrome History of COPD PLAN: Continue current cardiac medications Patient to undergo JORGE/cardioversion today with Dr. Geiger Patient may be discharged home this evening from a cardiac standpoint Further recommendations pending patient course Nurse practitioner note has been reviewed by physician. Signing provider agrees with the documented findings, assessment, and plan of care documented by SHEAR SCRAPMAN as a scribe. Objective - Vital Signs Vital signs: Vital Signs Temp 97.0 F L 09/12/23 08:53 Pulse 105 H 09/12/23 10:08 Resp 18 09/12/23 10:08 BP 98/56 09/12/23 10:08 Pulse Ox 96 09/12/23 10:08 FiO2 - Labs CBC & Chem 7: 09/12/23 05:57 09/12/23 05:57 Labs: Abnormal Lab Results - Last 24 Hours (Table) 09/11/23 09/12/23 09/12/23 Range/Units 11:16 05:57 05:57 Hct 46.6 H (34.0-46.0) % Sodium 136 L (137-145) mmol/L BUN 38 H (7-17) mg/dL Creatinine 1.16 H (0.52-1.04) mg/dL Troponin I 0.049 H* (0.000-0.034) ng/mL Total Protein 6.0 L (6.3-8.2) g/dL Albumin 3.3 L (3.5-5.0) g/dL
[2023-09-12] MEDS ORDERED: PHENYLEPHRINE 10 MG/ML VIAL ONE (13:30)
[2023-09-12] MEDS: LACTATED RINGERS 1,000 ML IV ONE (13:30)
[2023-09-12] MEDS ORDERED: PROPOFOL 10 MG/ML 20 ML VIAL IV ONE (13:30)
[2023-09-12] MEDS ORDERED: LIDOCAINE 1% INJ 10MG/ML (20 ML MDV) ONE (13:30)
[2023-09-12] MEDS: BENZOCAINE SPRAY 1 CAN TOPICAL ONE (13:35)
--- NOTE | 2023-09-12 14:39 | P.PN ---
Subjective Progress Note Date: 09/12/23 This is a 78-year-old female patient with a known history of chronic bronchial asthma, atrial fibrillation, hyperlipidemia, hypertension, hypothyroidism who presented here to the emergency room yesterday with chest pain and anxiety. She had woken up in the morning noticing that her heart was racing up to 110 bpm and took her morning medications without much improvement. EMS was called and gave her 2 of Versed and the tightness resolved. She does have occasional dyspnea on exertion. He is seen today in consultation in the emergency department. She is currently sitting up in a chair at the bedside. Awake and alert in no acute distress. She is maintaining good O2 saturations in the 90s on room air. Afebrile. Hemodynamically stable. Chest x-ray revealed bibasilar airspace opacities right greater than left. Underlying pulmonary edema with trace left pleural effusion. CT scan of the brain revealed no acute intracranial abnormalities. White count 9.1. Hemoglobin 15.3. Platelets 161. D-dimer 0.46. Sodium 141. Potassium 4.3. Bicarb 25. BUN 35. Creatinine 0.96. Glucose 106. Troponin 0.012, 0.062, 0.049. proBNP 6900. TSH less than 0.015. T41.66. The patient is seen today September 12, 2023 in follow-up on the regular medical floor. She is currently sitting up in a chair. Awake and alert in no acute distress. Maintaining good O2 saturations in the 90s on room air. She is afebrile. Hemodynamically stable. She remains in atrial fibrillation/flutter with a better controlled rate. The plan is for JORGE and cardioversion today with cardiology. White count 8.2. Hemoglobin 14.9. Platelets 159. Sodium 136. Potassium 4.0. Bicarb 28. BUN 38. Creatinine 1.16. He remains on flecainide. Continued on Xarelto. Echocardiogram reveals preserved left ventricular syst olic function with ejection fraction 55 to 60%. Objective - Vital Signs Vital signs: Vital Signs Temp 97.9 F 09/12/23 11:37 Pulse 77 09/12/23 14:31 Resp 14 09/12/23 14:31 BP 89/53 09/12/23 14:31 Pulse Ox 97 09/12/23 14:31 FiO2 Intake & Output 09/11/23 09/12/2324 18:59 06:59 18:59 Intake Total 100 Balance 100 Intake: IV 100 - Exam GENERAL EXAM: Alert, 78-year-old female, up in a chair, on room air, in no apparent distress. HEAD: Normocephalic. EYES: Normal reaction of pupils, equal size. NOSE: Clear with pink turbinates. THROAT: No erythema or exudates. NECK: No masses, no JVD. CHEST: No chest wall deformity. LUNGS: Equal air entry with faint crackles in the posterior bases. CVS: S1 and S2 normal with no audible murmur, irregular rhythm. ABDOMEN: No hepatosplenomegaly, normal bowel sounds, no guarding or rigidity. SPINE: No scoliosis or deformity SKIN: No rashes CENTRAL NERVOUS SYSTEM: No focal deficits, tone is normal in all 4 extremities. EXTREMITIES: There is 1+ peripheral edema. No clubbing, no cyanosis. Peripher al pulses are intact. - Labs CBC & Chem 7: 09/12/23 05:57 09/12/23 05:57 Labs: Abnormal Lab Results - Last 24 Hours (Table) 09/12/23 09/12/23 Range/Units 05:57 05:57 Hct 46.6 H (34.0-46.0) % Sodium 136 L (137-145) mmol/L BUN 38 H (7-17) mg/dL Creatinine 1.16 H (0.52-1.04) mg/dL Total Protein 6.0 L (6.3-8.2) g/dL Albumin 3.3 L (3.5-5.0) g/dL Assessment and Plan Assessment: Chest pain and palpitations secondary to atrial flutter. Plan is for JORGE/cardioversion today History of atrial fibrillation/flutter anticoagulated with Xarelto, previous ablations x 2 Dyspnea secondary to above Lifelong non-smoker History of mild intermittent chronic bronchial asthma Hypertension Hyperlipidemia Hypothyroidism History of brain tumor, post surgical resection Plan: The patient was seen and evaluated Echocardiogram, labs and medications reviewed Currently stable and on room air May have JORGE/cardioversion today Anticoagulated with Xarelto We will continue to follow I have personally seen and examined the patient, performed the documentation and the assessment and plan as written. Number of minutes spent on the visit: 10.
--- NOTE | 2023-09-12 14:52 | P.PCN ---
Date of Procedure: 09/12/23 Operative Findings: Cardioversion Report Performing physician Antelmo Geiger M.D. Procedure performed Successful cardioversion of atrial fibrillation to normal sinus mechanism using 200 J at first attempt Indication Symptomatic atrial fibrillation Complication None Level of sedation The procedure was performed under deep sedation using propofol with JUNIOR RECRUITER in the room Procedure description After obtaining an informed consent the patient was brought to the recovery room. Sedation was introduced using propofol with JUNIOR RECRUITER in the room. Subsequently the patient cardioverted from atrial fibrillation to normal sinus mechanism using 200 J and first attempt Conclusion Successful cardioversion of atrial fibrillation to normal sinus mechanism using 200 J Postprocedure management Continue the current medical regimen Continue oral anticoagulation Follow-up with the patient
--- NOTE | 2023-09-12 14:53 | P.PCN ---
Date of Procedure: 09/12/23 Operative Findings: TRANSESOPHAGEAL ECHOCARDIOGRAM STRANDING MACHINE OPERATOR HELPER: ASHLEY CARRILLO MD, RPVI INDICATION: Rule out intracardiac thrombus before cardioversion SEDATION: Conscious sedation COMPLICATION: None LEVEL OF SEDATION The procedure was performed under general anesthesia PROCEDURE DESCRIPTION: After obtaining an informed consent, the patient was brought to transesophageal echocardiogram room. Pulse oximetry and heart monitors were attached to the patient. The patient throat was sprayed using lidocaine. The patient was turned into left lateral position. After that a bite guard was placed. After an appropriate conscious sedation was initiated, the transesophageal echocardiogram was advanced through a bite guard into the mid esophagus. A 2-D echocardiogram images, color Doppler images, continuous wave images, pulse-wave images, of various cardiac structure were performed. After that the transesophageal echocardiogram probe was advanced into the stomach and fixed to obtain transgastric view was. The probe was brought into the mid esophagus. Inter-atrial septum was interrogated using 2D images, color Doppler images, and then contrast study. After that transesophageal echocardiogram was withdrawn out and upon withdrawing the descending thoracic aorta all the way up to the arch was evaluated. CONCLUSION: 1. Intact interatrial septum 2. Intact left atrial appendage 3. No evidence of intracardiac thrombus 4. Normal LV systolic function
[2023-09-12] MEDS: METOPROLOL TARTRATE 25 MG TAB PO STA (15:01)
[2023-09-12] MEDS: RIVAROXABAN 15 MG TAB PO SCH (20:59)
[2023-09-13 01:06] VITALS: RESP 16
[2023-09-13 11:31] LABS: Basophils % (A) 0 %; Eosinophils # (A) 0.1 k/uL (0-0.7); Eosinophils % (A) 1 %; HCT 45.6 % (34.0-46.0); HGB 15.3 gm/dL (11.4-16.0); Lymphocytes # (A) 0.3 k/uL (1.0-4.8); Lymphocytes % (A) 4 %; MCH 33.5 pg (25.0-35.0); MCHC 33.5 g/dL (31.0-37.0); MCV 100.1 fL (80.0-100.0); Macrocytosis Slight; Mean Platelet Volume 9.4; Monocytes # (A) 0.7 k/uL (0-1.0); Monocytes % (A) 9 %; Neutrophils # (A) 7.3 k/uL (1.3-7.7); Neutrophils % (A) 86 %; Platelet Count 165 k/uL (150-450); RBC 4.56 m/uL (3.80-5.40); WBC 8.5 k/uL (3.8-10.6)
[2023-09-13 11:46] LABS: ALT 23 U/L (4-34); AST 35 U/L (14-36); African American GFR (CKD) 39 (>60 ml/min/1.73 sqM); Albumin 3.3 g/dL (3.5-5.0); Alkaline Phosphatase 79 U/L (38-126); Anion Gap 7 mmol/L; Blood Urea Nitrogen 39 mg/dL (7-17); Calcium 8.6 mg/dL (8.4-10.2); Carbon Dioxide 27 mmol/L (22-30); Chloride 100 mmol/L (98-107); Glucose 129 mg/dL (74-99); Non-African American GFR(CKD) 34 (>60 ml/min/1.73 sqM); Potassium 4.4 mmol/L (3.5-5.1); Sodium 134 mmol/L (137-145); Total Bilirubin 0.8 mg/dL (0.2-1.3)
[2023-09-13 12:00] VITALS: BMI 31.9
--- NOTE | 2023-09-13 12:23 | P.PN ---
Subjective HISTORY OF PRESENT ILLNESS: This is a 78-year-old female with a past medical history significant for atrial fibrillation with previous ablation, atrial flutter with previous ablation, hypothyroidism, sick sinus syndrome, and COPD. Patient follows in the office with Dr. Beltran. We have been asked to see the patient in consultation for congestive heart failure. Patient examined at the bedside in the emergency room. Patient states that she has been under a lot of stress lately and upset as her dog who is 17 years old is not doing well and she believes that she is going to pass away soon. She states that she has not really been sleeping for the past few days. Patient states yesterday morning she woke up and began to have heart palpitations. She also reports having some mild chest tightness which has since resolved. She states she has been feeling short of breath the past few months going up and down the stairs. She does report a history of adrenal insufficiency and states she has gained about 30 pounds over the past 3 years. She denies any history of congestive heart failure. Patient was seen in the office in July 2023. At that time patient was in sinus mechanism. At the time of examination, she remains in atrial fibrillation/flutter with heart rate in the low 100s. Patient states she has been compliant with her Xarelto and has not missed any doses. She also reports a history of obstructive sleep apnea and states that she has been compliant with her CPAP at home. DIAGNOSTICS: - Chest xray bibasilar hazy airspace opacities, right greater than left. May represent component of underlying pulmonary edema with trace left pleural effusion - Laboratory data: WBC 9.1. Hemoglobin 15.3. Platelet count 161. D-dimer 0.46. Sodium 141. Potassium 4.3. BUN 35. Creatinine 0.96. Troponin 0.012. 0.062. proBNP 6900. TSH less than 0.015. Free T4 1.66. - Current home cardiac medications include metoprolol tartrate 25 mg daily, Xarelto 20 mg at night, Pravachol 20 mg at night, flecainide 50 mg twice a day. - Most recent echocardiogram obtained in the office in June 2023 revealed ejection fraction 50 to 55%, borderline LVH, trace to mild aortic regurgitation, mild to moderate tricuspid regurgitation, and mild MR. 09/12/2023 Patient examined this morning at the bedside. Patient remains in the emergency room. Patient currently denies chest pain or pressure. She denies shortness of breath. Bedside telemetry reveals atrial fibrillation. Echocardiogram completed revealing ejection fraction 55 to 60%. 09/13/2023 Patient is status post JORGE and cardioversion. Patient is maintaining sinus mechanism. Patient examined this morning at the bedside. Patient denies chest pain or pressure. She denies shortness of breath. Vital signs are stable. Patient is running a fever today of 100.2 F. PHYSICAL EXAM: VITAL SIGNS: Reviewed. GENERAL: Well-developed in no acute distress. HEENT: Head is normocephalic. Pupils are equal, round. Sclerae anicteric. Mucous membranes of the mouth are moist. Neck supple. No JVD or thyromegaly LUNGS: Respirations even and unlabored. Lungs essentially clear to auscultation bilaterally. HEART: regular rate and rhythm. S1 and S2 heard. ABDOMEN: Soft. Nondistended. Nontender. EXTREMITIES: Normal range of motion. No clubbing or cyanosis. Peripheral pulses intact. No lower extremity edema NEUROLOGIC: Awake and alert. Oriented x 3. ASSESSMENT: Palpitations Paroxysmal atrial fibrillation/typical atrial flutter, status post JORGE and cardioversion maintaining sinus mechanism Mild heart failure with preserved EF, likely exacerbated by A-fib, resolved History of a flutter and A-fib ablation Hypothyroidism History of sick sinus syndrome History of COPD History of sleep apnea, patient compliant with CPAP at home PLAN: Continue current cardiac medications Continue telemetry monitoring Patient is stable for discharge from a cardiac perspective Further recommendations pending patient course Nurse practitioner note has been reviewed by physician. Signing provider agrees with the documented findings, assessment, and plan of care documented by STONE CHIMNEY MASON as a scribe. Objective - Vital Signs Vital signs: Vital Signs Temp 98.9 F 09/13/23 11:43 Pulse 60 09/13/23 11:43 Resp 16 09/13/23 11:43 BP 101/58 09/13/23 11:43 Pulse Ox 93 L 09/13/23 11:43 FiO2 Intake & Output 09/12/23 09/13/23 09/13/23 18:59 06:59 18:59 Intake Total 100 240 Balance 100 240 Weight 89.811 kg 89.811 kg Intake: IV 100 Oral 240 Other: Voiding Method Toilet # Voids 1 # Bowel Movements 1 - Labs CBC & Chem 7: 09/13/23 09:39 09/13/23 09:39 Labs: Abnormal Lab Results - Last 24 Hours (Table) 09/13/23 09/13/23 Range/Units 09:39 09:39 MCV 100.1 H (80.0-100.0) fL Lymphocytes # 0.3 L (1.0-4.8) k/uL Sodium 134 L (137-145) mmol/L BUN 39 H (7-17) mg/dL Creatinine 1.48 H (0.52-1.04) mg/dL Glucose 129 H (74-99) mg/dL Total Protein 6.0 L (6.3-8.2) g/dL Albumin 3.3 L (3.5-5.0) g/dL
--- NOTE | 2023-09-13 12:25 | P.CNNES ---
History of Present Illness Consult date: 09/12/23 Requesting physician: Betty Bhatti Reason for Consult: [facility] [place], history of brain tumor removal History of Present Illness: Patient is a 78-year-old female came to the hospital by ambulance 2 days ago on 09/10/2023 at 11:12 AM for "heart racing". Patient's vitals at the scene was blood pressure 151/75, pulse rate 100, saturation 94%, respiration 15, blood glucose 102 and temperature 37 C. Patient underwent cardioversion today. Patient underwent JORGE which revealed intact interatrial septum. Intact left atrial appendage. No evidence of intracardiac thrombus. Normal left ventricular systolic function. Neurology consulted for history of benign tumor that was removed previously. Patient tells me that she has history of benign brain tumor, that was diagnosed in 2008 which was "behind her left eye". On review of records it appears patient has history of benign neoplasm of pituitary gland for which she had follow-up MRIs performed. The last MRI was of the pituitary with and without contrast on 11/17/2016 which revealed overall stable findings. No new mass or areas of nonenhancement identified. Patient has never had any history of seizure, never been on any seizure medication. She denies any history of seizures. She followed up with Dr. Bush for about 10 years after meningioma resection, who perform serial EEGs. Patient was not placed on any seizure medication. At present she has no neurological concerns. No headache, no visual problems. Examination is normal as mentioned below. Patient's EKG shows flutter with heart rate of 103. Chest x-ray revealed bibasilar hazy airspace opacities, right greater than left. May represent component of underlying pulmonary edema with trace left pleural effusion. Repeat EKG showed clear atrial flutter/tachycardia with rapid ventricular response. CT head revealed previous left frontal craniotomy flap and unchanged patchy encephalomalacia inferior left frontal lobe, probably sequela of prior injury. No acute intracranial process. I personally reviewed CT head, agree with the findings. Patient's blood test shows normal CBC, PT PTT. Normal electrolytes, renal functions, AST is 37, ALT 28. Troponin is mildly elevated 0.062. TSH is <0.015, with normal free T41.66. Patient takes Xarelto, Pravachol besides other medications. Review of Systems All other review of systems unremarkable except as mentioned pertinent positives and negatives in the HPI. 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 but no longer takes med, sciatica, see Dr Beltran H&P, aura migraines states visual changes no headache, adrenal insufficency History of Any Multi-Drug Resistant Organisms: ESBL Date of last positivie culture/infection: 08/17/18 MDRO Source:: ESBL URINE Past Surgical History: Cardiac Ablation Additional Past Surgical History / Comment(s): Cardiac AblationX2, Brain tumor removal, santi cataracts, pain clinic procedure Past Anesthesia/Blood Transfusion Reactions: No Reported Reaction Additional Past Anesthesia/Blood Transfusion Reaction / Comment(s): no blood transfusion Past Psychological History: Anxiety Smoking Status: Never smoker Past Alcohol Use History: None Reported Past Drug Use History: None Reported - Past Family History Brother(s) Family Medical History: Cancer Sister(s) Family Medical History: Cancer Medications and Allergies Home Medications Medication Instructions Recorded Confirmed Type Montelukast [Singulair] 10 mg PO DAILY 09/30/13 09/10/23 History Rivaroxaban [Xarelto] 20 mg PO HS 09/30/13 09/10/23 History Fluticasone Nasal [place] [Flonase 1 spr EA NOSTRIL BID 06/21/16 09/10/23 History Nasal [place]] Loratadine 10 mg PO DAILY 09/30/20 09/10/23 History Pravastatin Sodium [Pravachol] 20 mg PO HS 09/30/20 09/10/23 History Albuterol Inhaler [Ventolin Hfa 1 - 2 puff INHALATION RT-Q6H PRN 12/05/20 09/10/23 History Inhaler] Cholecalciferol [Vitamin D3 (25 25 mcg PO DAILY 04/30/21 09/10/23 History Mcg = 1000 Iu)] Flecainide [Tambocor] 50 mg PO BID-W/MEALS 04/30/21 09/10/23 History Multivitamins, Thera [Multivitamin 1 tab PO DAILY 04/30/21 09/10/23 History (formulary)] diphenhydrAMINE HCL [Benadryl] 25 mg PO HS 04/30/21 09/10/23 History traZODone HCL [Desyrel] 50 mg PO HS PRN 08/04/23 09/10/23 History Hydrocortisone 2.5 mg PO DAILY@1500 09/10/23 09/10/23 History Hydrocortisone 7.5 mg PO DAILY@1100 09/10/23 09/10/23 History Hydrocortisone 15 mg PO DAILY@0630 09/10/23 09/10/23 History Levothyroxine Sodium [Tirosint] 100 mcg PO DAILY@0600 09/10/23 09/10/23 History Metoprolol Tartrate [Lopressor] 25 mg PO W/BRKFST 09/10/23 09/10/23 History Allergies Allergy/AdvReac Type Severity Reaction Status Date / Time levofloxacin [From Levaquin] AdvReac Confusion/n Verified 09/10/23 15:07 ausea Physical Examination - Vital Signs Vital Signs: Vital Signs Temp Pulse Pulse Resp BP BP Pulse Ox 09/12/23 17:12 97.9 F 62 20 94/58 97 09/12/23 15:32 97.6 F 77 16 104/70 96 09/12/23 14:59 76 14 113/61 97 09/12/23 14:44 77 14 99/63 96 09/12/23 14:36 77 14 95/54 95 09/12/23 14:31 77 14 89/53 97 09/12/23 14:16 80 15 100/57 96 09/12/23 14:00 79 16 101/59 97 09/12/23 13:30 193 H 16 93/54 93 L 09/12/23 11:37 97.9 F 105 H 18 102/63 97 09/12/23 10:08 105 H 18 98/56 96 09/12/23 09:00 130 H 09/12/23 08:53 97.0 F L 104 H 18 118/78 97 09/12/23 08:06 95 09/12/23 07:33 98.4 F 94 18 103/74 96 09/12/23 04:05 93 16 95/71 96 09/12/23 02:27 93 20 110/68 99 09/11/23 23:01 86 16 118/79 97 09/11/23 19:57 98 16 118/79 95 09/11/23 18:21 96 17 101/68 95 Intake and Output 09/12/23 09/12/23 09/12/23 06:59 14:59 22:59 Intake Total 400 Balance 400 Intake: IV 400 Patient is an elderly female, very pleasant, in no acute distress. Patient is alert awake oriented to time place and person. Patient knows it is August 2023 and that she is in [facility] in [facility]. Speech and language functions are normal. Patient can name and repeat very well. No aphasia or dysarthria. Attention, concentration and fund of knowledge is adequate. On cranial nerve examination, pupils are equal, round and reacting to light, visual andrade are full on confrontation, with no neglect on double simultaneous stimulation. Extraocular muscles are intact with no nystagmus. Face is symmetric, tongue protrudes to the midline. Palatal elevation and sensation normal, hearing and shoulder shrug normal, facial sensation normal. Patient has some temporal wasting. On muscle strength testing, there is no pronator drift and the strength is normal in arms and legs distally and proximally. Deep tendon reflexes are symmetric 2 at the biceps, 2 brachioradialis, 1 at the knees and plantars downgoing bilaterally. Sensory to touch is equal with no neglect on double simultaneous stimulation. Cerebellar function showed no ataxia for otcorh-dy-rscw testing. No dysdiadochokinesia. No ataxia for aion-rk-inhl testing on either side. Tone and bulk of muscles normal. Gait deferred.. On general examination, there is no carotid bruit or murmur, S1-S2 audible. Chest is clear on consultation. Abdomen is soft nontender. No organomegaly, bowel sounds present. Peripheral pulses are present. No peripheral edema. Results - Laboratory Findings CBC and BMP: 09/13/23 09:39 09/13/23 09:39 Abnormal Lab Findings: Abnormal Labs 09/10/23 09/10/23 09/11/23 11:49 11:49 07:59 Hct Lymphocytes # 0.8 L Sodium Chloride 110 H BUN 35 H Creatinine Glucose 106 H AST 37 H Troponin I 0.062 H* Total Protein Albumin TSH <0.015 L 09/11/23 09/12/23 09/12/23 11:16 05:57 05:57 Hct 46.6 H Lymphocytes # Sodium 136 L Chloride BUN 38 H Creatinine 1.16 H Glucose AST Troponin I 0.049 H* Total Protein 6.0 L Albumin 3.3 L TSH Assessment and Plan Assessment: * History of benign pituitary tumor, that was removed 2008. There is subsequent no recurrence of the tumor. Her current CT head is normal. * Atrial fibrillation, currently on Xarelto. * Status post cardioversion for symptomatic atrial fibrillation. * Hypertension * Hyperlipidemia * Sleep apnea * Thyroid disorder Plan: * Neurologically patient is completely stable. She has no neurological symptoms. Patient has history of benign pituitary tumor removed in 2008. No further recurrence. * No other neurological workup indicated. * For abnormal thyroid functions, we will defer to IM. * Cardiology on for atrial fibrillation. * Neurologically clear. * Please reconsult neurology if any other concerns. Thank you for the consult. Time with Patient: Less than 30
--- NOTE | 2023-09-13 12:29 | P.PN ---
Subjective Progress Note Date: 09/13/23 This is a 78-year-old female patient of Dr. Bansal who presented to the ER with complaints of chest tightness, increased anxiety and shortness of breath. Patient reports that she's had increased stress due to her elderly dog being sick. Patient states that she noticed her heart rate was racing this a.m. without improvement with morning medication. Patient reports that she's also noticed increased shortness of breath over the past few days. Patient does have a past medical history of atrial fibrillation in which she is maintained on Xarelto, asthma, hyperlipidemia, hypertension, osteoporosis, sleep apnea, thyroid disorder, vascular disorder, restless leg syndrome, history of brain tumor removal.chest x-ray in ER showing bibasilar hazy airspace opacities right greater than left may represent component of underlying pulmonary edema with trace left pleural effusion.EKG completed showing atrial flutter/tachycardia with RVR heart rate 100. D-dimer 0.46 creatinine 0.96 bun 35 initial troponin 0.012 BNP 6900. at this time patient will be admitted cardiology services consulted also consulted pulmonary services possible pleural effusion. Patient was given IV Lasix. Patient reports improvement with overall shortness of breath. 2-D echo has been ordered per cardiology on 09/12/2023 patient is alert and oriented 3.family patient had episode of repeating herself yesterday family requesting head CT. Head CT was completed showing previous left frontal craniotomy flap and unchanged patchy encephalomalacia inferior left frontal lobe probably sequela of prior injury. No acute intracranial abnormality seen. Patient does have a history of brain tumor removal 15 years ago. Patient has returned to baseline no new complaints. Plans for cardioversion today per cardiology.current vital signs temp 97.0, heart rate 104, respiratory rate 18, blood pressure 118/78 with pulse ox 97 on room air On 09/13/2023 patient is alert and oriented 3. Patient underwent JORGE with cardioversion yesterday. Patient reports that she feels much improved. Discussed with nursing staff patient had elevated temp this morning 100.2 we'll order UA, chest x-ray and blood cultures. Patient's creatinine 1.48 and bun 39. Will order repeat labs for and start patient on some gentle hydration. at this time patient denies chest pain or shortness of breath. Patient denies nausea vomiting or diarrhea. Patient denies any urinary burning or frequency Objective - Vital Signs Vital signs: Vital Signs Temp 98.9 F 09/13/23 11:43 Pulse 60 09/13/23 11:43 Resp 16 09/13/23 11:43 BP 101/58 09/13/23 11:43 Pulse Ox 93 L 09/13/23 11:43 FiO2 Intake & Output 09/12/23 09/13/23 09/13/23 18:59 06:59 18:59 Intake Total 100 240 Balance 100 240 Weight 89.811 kg 89.811 kg Intake: IV 100 Oral 240 Other: Voiding Method Toilet # Voids 1 # Bowel Movements 1 - Exam Head normocephalic Neck supple Lungs clear to auscultation bilaterally no wheezing or crackles Heart irregular heart rate known A. fib Abdomen is soft nontender nondistended positive bowel sounds no hepatosplenomegaly Extremities no edema Neuro alert and orientated to 3 - Labs CBC & Chem 7: 09/13/23 09:39 09/13/23 09:39 Labs: Abnormal Lab Results - Last 24 Hours (Table) 09/13/23 09/13/23 Range/Units 09:39 09:39 MCV 100.1 H (80.0-100.0) fL Lymphocytes # 0.3 L (1.0-4.8) k/uL Sodium 134 L (137-145) mmol/L BUN 39 H (7-17) mg/dL Creatinine 1.48 H (0.52-1.04) mg/dL Glucose 129 H (74-99) mg/dL Total Protein 6.0 L (6.3-8.2) g/dL Albumin 3.3 L (3.5-5.0) g/dL Assessment and Plan Assessment: 1. palpitations with shortness of breath 2. paroxysmal atrial fibrillation/atrial flutter. Status post JORGE and cardioversion on 09/12/2023 3. Acute CHF exacerbation 4. history of hypothyroidism. TSH was low at 0.015 we'll decrease patient's dose of Synthroid 5. History of adrenal insufficiency patient maintained on Cortef 6. History of anxiety 7. History of COPD 8. History of sick sinus syndrome 9. Febrile temp 100.2. UA, chest x-ray blood culture ordered 10. FRANK. repeat labs in a.m. patient started on gentle hydration At this time patient will be admitted Home meds resumed Patient was given IV Lasix Pulmonary and cardiology services consulted 2-D echo ordered
[2023-09-13] MEDS: SODIUM CHLORIDE 0.9% 1,000 ML IV SCH (13:54)
--- NOTE | 2023-09-13 13:54 | XR ---
EXAMINATION TYPE: XR chest 2V DATE OF EXAM: 09/13/2023 COMPARISON: 09/10/2023 HISTORY: 78 year-old female follow-up febrile, acute pulmonary edema TECHNIQUE: PA and lateral views FINDINGS: Loop recorder device projects over the left side of the heart. Heart borderline size. Improving opaci ty at the right base. Hyperinflation. Biapical pleural-parenchymal scarring. Trace bilateral pleural effusions. IMPRESSION: 1. Borderline heart size and COPD. 2. Trace bilateral pleural effusions persist on the lateral view. 3. Improving aeration at the right base.
[2023-09-13] MEDS: ALPRAZolam 0.25 MG TAB PO PRN (14:22)
--- NOTE | 2023-09-13 14:28 | P.PN ---
Subjective Progress Note Date: 09/13/23 This is a 78-year-old female patient with a known history of chronic bronchial asthma, atrial fibrillation, hyperlipidemia, hypertension, hypothyroidism who presented here to the emergency room yesterday with chest pain and anxiety. She had woken up in the morning noticing that her heart was racing up to 110 bpm and took her morning medications without much improvement. EMS was called and gave her 2 of Versed and the tightness resolved. She does have occasional dyspnea on exertion. He is seen today in consultation in the emergency department. She is currently sitting up in a chair at the bedside. Awake and alert in no acute distress. She is maintaining good O2 saturations in the 90s on room air. Afebrile. Hemodynamically stable. Chest x-ray revealed bibasilar airspace opacities right greater than left. Underlying pulmonary edema with trace left pleural effusion. CT scan of the brain revealed no acute intracranial abnormalities. White count 9.1. Hemoglobin 15.3. Platelets 161. D-dimer 0.46. Sodium 141. Potassium 4.3. Bicarb 25. BUN 35. Creatinine 0.96. Glucose 106. Troponin 0.012, 0.062, 0.049. proBNP 6900. TSH less than 0.015. T41.66. The patient is seen today September 12, 2023 in follow-up on the regular medical floor. She is currently sitting up in a chair. Awake and alert in no acute distress. Maintaining good O2 saturations in the 90s on room air. She is afebrile. Hemodynamically stable. She remains in atrial fibrillation/flutter with a better controlled rate. The plan is for JROGE and cardioversion today with cardiology. White count 8.2. Hemoglobin 14.9. Platelets 159. Sodium 136. Potassium 4.0. Bicarb 28. BUN 38. Creatinine 1.16. He remains on flecainide. Continued on Xarelto. Echocardiogram reveals preserved left ventricular syst olic function with ejection fraction 55 to 60%. The patient is seen today September 13, 2023 in follow-up on the selective care unit. She is sitting up in a chair at the bedside. Awake and alert in no acute distress. Denies any worsening shortness of breath, cough or congestion. Denies any chest pain or palpitations. She is maintaining good O2 saturations in the 90s on room air. Chest x-ray reveals borderline heart size and evidence of COPD. Trace effusions. Improved aeration of the right lung base. White count 8.5. Hemoglobin 15.3. Platelets 165. Sodium 134. Potassium 4.4. Bicarb 27. BUN 39. Creatinine 1.48. Glucose 129. She remains on flecainide. Remains on oral diuretics. Anticoagulated with Xarelto. Remains in sinus rhythm. Objective - Vital Signs Vital signs: Vital Signs Temp 98.9 F 09/13/23 11:43 Pulse 60 09/13/23 11:43 Resp 16 09/13/23 11:43 BP 101/58 09/13/23 11:43 Pulse Ox 93 L 09/13/23 11:43 FiO2 Intake & Output 09/12/23 09/13/23 09/13/23 18:59 06:59 18:59 Intake Total 100 480 Balance 100 480 Weight 89.811 kg 89.811 kg Intake: IV 100 Oral 480 Other: Voiding Method Toilet # Voids 1 # Bowel Movements 1 - Exam GENERAL EXAM: Alert, very pleasant 78-year-old female, on room air, in no apparent distress. HEAD: Normocephalic. EYES: Normal reaction of pupils, equal size. NOSE: Clear with pink turbinates. THROAT: No erythema or exudates. NECK: No masses, no JVD. CHEST: No chest wall deformity. LUNGS: Equal air entry with faint crackles in the posterior bases. CVS: S1 and S2 normal with no audible murmur, regular rhythm. ABDOMEN: No hepatosplenomegaly, normal bowel sounds, no guarding or rigidity. SPINE: No scoliosis or deformity SKIN: No rashes CENTRAL NERVOUS SYSTEM: No focal deficits, tone is normal in all 4 extremities. EXTREMITIES: There is 1+ peripheral edema. No clubbing, no cyanosis. Peripheral pulses are intact. - Labs CBC & Chem 7: 09/13/23 09:39 09/13/23 09:39 Labs: Abnormal Lab Results - Last 24 Hours (Table) 09/13/23 09/13/23 Range/Units 09:39 09:39 MCV 100.1 H (80.0-100.0) fL Lymphocytes # 0.3 L (1.0-4.8) k/uL Sodium 134 L (137-145) mmol/L BUN 39 H (7-17) mg/dL Creatinine 1.48 H (0.52-1.04) mg/dL Glucose 129 H (74-99) mg/dL Total Protein 6.0 L (6.3-8.2) g/dL Albumin 3.3 L (3.5-5.0) g/dL Assessment and Plan Assessment: Chest pain and palpitations secondary to atrial flutter. JORGE/cardioversion 09/12/2023, remains in sinus rhythm History of atrial fibrillation/flutter anticoagulated with Xarelto, previous ablations x 2 Dyspnea secondary to above Lifelong non-smoker History of mild intermittent chronic bronchial asthma Hypertension Hyperlipidemia Hypothyroidism History of brain tumor, post surgical resection Plan: The patient was seen and evaluated Chest x-ray, labs and medications reviewed Currently stable and on room air Remains in sinus rhythm Anticoagulated with Xarelto Home once cleared by cardiology I have personally seen and examined the patient, performed the documentation and the assessment and plan as written. Number of minutes spent on the visit: 10.
[2023-09-13 16:30] LABS: Appearance,Urine Clear (Clear); Bilirubin,Urine Negative (Negative); Blood,Urine Negative (Negative); Color,Urine Colorless; Glucose,Urine (UA) Negative (Negative); Ketones,Urine Negative (Negative); Leukocyte Esterase,Urine Negative (Negative); Nitrite,Urine Negative (Negative); PH, Urine 5.5 (5.0-8.0); Protein,Urine Negative (Negative); Specific Gravity,Urine 1.008 (1.001-1.035); Urobilinogen,Urine <2.0 mg/dL (<2.0)
[2023-09-14 11:17] LABS: Basophils % (A) 0 %; Eosinophils # (A) 0.1 k/uL (0-0.7); Eosinophils % (A) 1 %; HCT 42.9 % (34.0-46.0); HGB 13.9 gm/dL (11.4-16.0); Lymphocytes # (A) 0.3 k/uL (1.0-4.8); Lymphocytes % (A) 5 %; MCH 32.6 pg (25.0-35.0); MCHC 32.3 g/dL (31.0-37.0); Macrocytosis Slight; Mean Platelet Volume 9.1; Monocytes # (A) 0.8 k/uL (0-1.0); Monocytes % (A) 13 %; Neutrophils # (A) 5.1 k/uL (1.3-7.7); Neutrophils % (A) 78 %; Platelet Count 136 k/uL (150-450); RBC 4.25 m/uL (3.80-5.40); RDW 14.8 % (11.5-15.5); WBC 6.5 k/uL (3.8-10.6)
[2023-09-14 11:27] VITALS: BP 105/62; PULSE 56; TEMP 98.3
[2023-09-14 12:15] LABS: ALT 28 U/L (4-34); AST 48 U/L (14-36); African American GFR (CKD) 56 (>60 ml/min/1.73 sqM); Albumin 3.1 g/dL (3.5-5.0); Alkaline Phosphatase 79 U/L (38-126); Anion Gap 3 mmol/L; Blood Urea Nitrogen 33 mg/dL (7-17); Calcium 8.4 mg/dL (8.4-10.2); Carbon Dioxide 28 mmol/L (22-30); Chloride 103 mmol/L (98-107); Glucose 102 mg/dL (74-99); Non-African American GFR(CKD) 48 (>60 ml/min/1.73 sqM); Potassium 4.3 mmol/L (3.5-5.1); Sodium 134 mmol/L (137-145); Total Bilirubin 0.4 mg/dL (0.2-1.3); Total Protein 5.7 g/dL (6.3-8.2)
--- NOTE | 2023-09-14 13:21 | P.PN ---
Subjective HISTORY OF PRESENT ILLNESS: This is a 78-year-old female with a past medical history significant for atrial fibrillation with previous ablation, atrial flutter with previous ablation, hypothyroidism, sick sinus syndrome, and COPD. Patient follows in the office with Dr. Beltran. We have been asked to see the patient in consultation for congestive heart failure. Patient examined at the bedside in the emergency room. Patient states that she has been under a lot of stress lately and upset as her dog who is 17 years old is not doing well and she believes that she is going to pass away soon. She states that she has not really been sleeping for the past few days. Patient states yesterday morning she woke up and began to have heart palpitations. She also reports having some mild chest tightness which has since resolved. She states she has been feeling short of breath the past few months going up and down the stairs. She does report a history of adrenal insufficiency and states she has gained about 30 pounds over the past 3 years. She denies any history of congestive heart failure. Patient was seen in the office in July 2023. At that time patient was in sinus mechanism. At the time of examination, she remains in atrial fibrillation/flutter with heart rate in the low 100s. Patient states she has been compliant with her Xarelto and has not missed any doses. She also reports a history of obstructive sleep apnea and states that she has been compliant with her CPAP at home. DIAGNOSTICS: - Chest xray bibasilar hazy airspace opacities, right greater than left. May represent component of underlying pulmonary edema with trace left pleural effusion - Laboratory data: WBC 9.1. Hemoglobin 15.3. Platelet count 161. D-dimer 0.46. Sodium 141. Potassium 4.3. BUN 35. Creatinine 0.96. Troponin 0.012. 0.062. proBNP 6900. TSH less than 0.015. Free T4 1.66. - Current home cardiac medications include metoprolol tartrate 25 mg daily, Xarelto 20 mg at night, Pravachol 20 mg at night, flecainide 50 mg twice a day. - Most recent echocardiogram obtained in the office in June 2023 revealed ejection fraction 50 to 55%, borderline LVH, trace to mild aortic regurgitation, mild to moderate tricuspid regurgitation, and mild MR. 09/12/2023 Patient examined this morning at the bedside. Patient remains in the emergency room. Patient currently denies chest pain or pressure. She denies shortness of breath. Bedside telemetry reveals atrial fibrillation. Echocardiogram completed revealing ejection fraction 55 to 60%. 09/13/2023 Patient is status post JORGE and cardioversion. Patient is maintaining sinus mechanism. Patient examined this morning at the bedside. Patient denies chest pain or pressure. She denies shortness of breath. Vital signs are stable. Patient is running a fever today of 100.2 F. 09/14/2023 Patient examined this morning at the bedside. Patient denies chest pain or pressure. She denies shortness of breath. She is maintaining sinus mechanism. Vital signs are stable. She is afebrile. PHYSICAL EXAM: VITAL SIGNS: Reviewed. GENERAL: Well-developed in no acute distress. HEENT: Head is normocephalic. Pupils are equal, round. Sclerae anicteric. Mucous membranes of the mouth are moist. Neck supple. No JVD or thyromegaly LUNGS: Respirations even and unlabored. Lungs essentially clear to auscultation bilaterally. HEART: regular rate and rhythm. S1 and S2 heard. ABDOMEN: Soft. Nondistended. Nontender. EXTREMITIES: Normal range of motion. No clubbing or cyanosis. Peripheral pulses intact. No lower extremity edema NEUROLOGIC: Awake and alert. Oriented x 3. ASSESSMENT: Palpitations Paroxysmal atrial fibrillation/typical atrial flutter, status post JORGE and cardioversion maintaining sinus mechanism Mild heart failure with preserved EF, likely exacerbated by A-fib, resolved History of a flutter and A-fib ablation Hypothyroidism History of sick sinus syndrome History of COPD History of sleep apnea, patient compliant with CPAP at home PLAN: Continue current cardiac medications Continue telemetry monitoring Patient is stable for discharge from a cardiac perspective We will sign off. Please reconsult if needed. Nurse practitioner note has been reviewed by physician. Signing provider agrees with the documented findings, assessment, and plan of care documented by PR[employer]HEET COR[employer]OR as a scribe. Objective - Vital Signs Vital signs: Vital Signs Temp 98.3 F 09/14/23 11:23 Pulse 56 L 09/14/23 11:23 Resp 16 09/14/23 11:23 BP 105/62 09/14/23 11:23 Pulse Ox 92 L 09/14/23 11:23 FiO2 Intake & Output 09/13/23 09/14/23 09/14/23 18:59 06:59 18:59 Intake Total 720 356 Balance 720 356 Weight 89.811 kg Intake: Oral 720 356 Other: Voiding Method Toilet Toilet Toilet # Voids 3 2 - Labs CBC & Chem 7: 09/14/23 10:49 09/14/23 10:49 Labs: Abnormal Lab Results - Last 24 Hours (Table) 09/14/23 09/14/23 Range/Units 10:49 10:49 MCV 101.0 H (80.0-100.0) fL Plt Count 136 L (150-450) k/uL Lymphocytes # 0.3 L (1.0-4.8) k/uL Sodium 134 L (137-145) mmol/L BUN 33 H (7-17) mg/dL Creatinine 1.10 H (0.52-1.04) mg/dL Glucose 102 H (74-99) mg/dL AST 48 H (14-36) U/L Total Protein 5.7 L (6.3-8.2) g/dL Albumin 3.1 L (3.5-5.0) g/dL
--- NOTE | 2023-09-14 14:03 | P.DS ---
Providers Date of admission: 09/12/23 10:18 Expected date of discharge: 09/14/23 Attending physician: Carmelo Ricketts Consults: 09/11/23 10:09 Consult Physician Routine Consulting Provider: Bud Garcia Consult Reason/Comments: pleural effusion Do you want consulting provider notified?: Yes 09/12/23 09:29 Consult Physician Routine Consulting Provider: Sam Blair Consult Reason/Comments: amsc, history of brain tumor removal Do you want consulting provider notified?: Yes Primary care physician: Zoila Bansal Hospital Course: Diagnosis on discharge: 1. palpitations with shortness of breath 2. paroxysmal atrial fibrillation/atrial flutter. Status post JORGE and cardioversion on 09/12/2023 3. Acute CHF exacerbation 4. history of hypothyroidism. TSH was low at 0.015 we'll decrease patient's dose of Synthroid 5. History of adrenal insufficiency patient maintained on Cortef 6. History of anxiety 7. History of COPD 8. History of sick sinus syndrome 9. Febrile temp 100.2. UA, chest x-ray blood culture ordered, temperature came down to normal, she was monitored for 24 hours, no evidence of any infectious processes. 10. FRANK. repeat labs in a.m. patient started on gentle hydration 11. Underlying history of hypothyroidism, TSH was low at 0.015 during this admission, dose of Synthroid was decreased from 100 g to 88 g daily Hospital course: This is a 78-year-old female patient of Dr. Bansal who presented to the ER with complaints of chest tightness, increased anxiety and shortness of breath. Patient reports that she's had increased stress due to her elderly dog being sick. Patient states that she noticed her heart rate was racing this a.m. without improvement with morning medication. Patient reports that she's also noticed increased shortness of breath over the past few days. Patient does have a past medical history of atrial fibrillation in which she is maintained on X arelto, asthma, hyperlipidemia, hypertension, osteoporosis, sleep apnea, thyroid disorder, vascular disorder, restless leg syndrome, history of brain tumor removal.chest x-ray in ER showing bibasilar hazy airspace opacities right greater than left may represent component of underlying pulmonary edema with trace left pleural effusion.EKG completed showing atrial flutter/tachycardia with RVR heart rate 100. D-dimer 0.46 creatinine 0.96 bun 35 initial troponin 0.012 BNP 6900. at this time patient will be admitted cardiology services consulted also consulted pulmonary services possible pleural effusion. Patient was given IV Lasix. Patient reports improvement with overall shortness of breath. 2-D echo has been ordered per cardiology on 09/12/2023 patient is alert and oriented 3.family patient had episode of repeating herself yesterday family requesting head CT. Head CT was completed showing previous left frontal craniotomy flap and unchanged patchy encephalomalacia inferior left frontal lobe probably sequela of prior injury. No acute intracranial abnormality seen. Patient does have a history of brain tumor removal 15 years ago. Patient has returned to baseline no new complaints. Plans for cardioversion today per cardiology.current vital signs temp 97.0, heart rate 104, respiratory rate 18, blood pressure 118/78 with pulse ox 97 on room air On 09/13/2023 patient is alert and oriented 3. Patient underwent JORGE with cardioversion yesterday. Patient reports that she feels much improved. Discussed with nursing staff patient had elevated temp this morning 100.2 we'll order UA, chest x-ray and blood cultures. Patient's creatinine 1.48 and bun 39. Will order repeat labs for and start patient on some gentle hydration. at this time patient denies chest pain or shortness of breath. Patient denies nausea vomiting or diarrhea. Patient denies any urinary burning or frequency on 09/14/2023 patient was seen and examined on the medical floor she is alert and oriented 3 in no apparent distress she denies any chest pain or shortness of breath no cough no nausea or vomiting no abdominal pain no diarrhea no burning with urination no frequency or urgency and no hematuria, there is no fever or chills, white blood count is within normal limits, chest x-ray and urine analysis did not reveal any evidence of infectious process. Patient was cleared by cardiology and pulmonary to be discharged home. She will be discharged to home today. Plan - Discharge Summary Discharge Rx Participant: No New Discharge Prescriptions: New Furosemide [Lasix] 20 mg PO DAILY 30 Days #30 tab Rivaroxaban [Xarelto] 15 mg PO HS 30 Days #30 tab Levothyroxine Sodium [Synthroid] 88 mcg PO DAILY@0630 30 Days #30 tab Flecainide [Tambocor] 100 mg PO BID-W/MEALS 60 Days #30 tab Continue Montelukast [Singulair] 10 mg PO DAILY Fluticasone Nasal Burton [Flonase Nasal Burton] 1 spr EA NOSTRIL BID Loratadine 10 mg PO DAILY Albuterol Inhaler [Ventolin Hfa Inhaler] 1 - 2 puff INHALATION RT-Q6H PRN PRN Reason: Shortness Of Breath diphenhydrAMINE HCL [Benadryl] 25 mg PO HS traZODone HCL [Desyrel] 50 mg PO HS PRN PRN Reason: sleep Hydrocortisone 7.5 mg PO DAILY@1100 Hydrocortisone 15 mg PO DAILY@0630 Multivitamins, Thera [Multivitamin (formulary)] 1 tab PO DAILY Cholecalciferol [Vitamin D3 (25 Mcg = 1000 Iu)] 25 mcg PO DAILY Hydrocortisone 2.5 mg PO DAILY@1500 Metoprolol Tartrate [Lopressor] 25 mg PO W/BRKFST Discontinued Rivaroxaban [Xarelto] 20 mg PO HS Pravastatin Sodium [Pravachol] 20 mg PO HS Flecainide [Tambocor] 50 mg PO BID-W/MEALS Levothyroxine Sodium [Tirosint] 100 mcg PO DAILY@0600 Discharge Medication List Montelukast [Singulair] 10 mg PO DAILY 09/30/13 [History] Fluticasone Nasal Burton [Flonase Nasal Burton] 1 spr EA NOSTRIL BID 06/21/16 [History] Loratadine 10 mg PO DAILY 09/30/20 [History] Albuterol Inhaler [Ventolin Hfa Inhaler] 1 - 2 puff INHALATION RT-Q6H PRN 12/05/20 [History] Cholecalciferol [Vitamin D3 (25 Mcg = 1000 Iu)] 25 mcg PO DAILY 04/30/21 [History] Multivitamins, Thera [Multivitamin (formulary)] 1 tab PO DAILY 04/30/21 [History] diphenhydrAMINE HCL [Benadryl] 25 mg PO HS 04/30/21 [History] traZODone HCL [Desyrel] 50 mg PO HS PRN 08/04/23 [History] Hydrocortisone 2.5 mg PO DAILY@1500 09/10/23 [History] Hydrocortisone 7.5 mg PO DAILY@1100 09/10/23 [History] Hydrocortisone 15 mg PO DAILY@0630 09/10/23 [History] Metoprolol Tartrate [Lopressor] 25 mg PO W/BRKFST 09/10/23 [History] Flecainide [Tambocor] 100 mg PO BID-W/MEALS 60 Days #30 tab 09/14/23 [Rx] Furosemide [Lasix] 20 mg PO DAILY 30 Days #30 tab 09/14/23 [Rx] Levothyroxine Sodium [Synthroid] 88 mcg PO DAILY@30 30 Days #30 tab 09/14/23 [Rx] Rivaroxaban [Xarelto] 15 mg PO HS 30 Days #30 tab 09/14/23 [Rx] Follow up Appointment(s)/Referral(s): Zoila Bansal MD [Primary Care Provider] - 1-2 days
--- NOTE | 2023-09-14 14:33 | P.PN ---
Subjective Progress Note Date: 09/14/23 This is a 78-year-old female patient with a known history of chronic bronchial asthma, atrial fibrillation, hyperlipidemia, hypertension, hypothyroidism who presented here to the emergency room yesterday with chest pain and anxiety. She had woken up in the morning noticing that her heart was racing up to 110 bpm and took her morning medications without much improvement. EMS was called and gave her 2 of Versed and the tightness resolved. She does have occasional dyspnea on exertion. He is seen today in consultation in the emergency department. She is currently sitting up in a chair at the bedside. Awake and alert in no acute distress. She is maintaining good O2 saturations in the 90s on room air. Afebrile. Hemodynamically stable. Chest x-ray revealed bibasilar airspace opacities right greater than left. Underlying pulmonary edema with trace left pleural effusion. CT scan of the brain revealed no acute intracranial abnormalities. White count 9.1. Hemoglobin 15.3. Platelets 161. D-dimer 0.46. Sodium 141. Potassium 4.3. Bicarb 25. BUN 35. Creatinine 0.96. Glucose 106. Troponin 0.012, 0.062, 0.049. proBNP 6900. TSH less than 0.015. T41.66. The patient is seen today September 12, 2023 in follow-up on the regular medical floor. She is currently sitting up in a chair. Awake and alert in no acute distress. Maintaining good O2 saturations in the 90s on room air. She is afebrile. Hemodynamically stable. She remains in atrial fibrillation/flutter with a better controlled rate. The plan is for JORGE and cardioversion today with cardiology. White count 8.2. Hemoglobin 14.9. Platelets 159. Sodium 136. Potassium 4.0. Bicarb 28. BUN 38. Creatinine 1.16. He remains on flecainide. Continued on Xarelto. Echocardiogram reveals preserved left ventricular syst olic function with ejection fraction 55 to 60%. The patient is seen today September 13, 2023 in follow-up on the selective care unit. She is sitting up in a chair at the bedside. Awake and alert in no acute distress. Denies any worsening shortness of breath, cough or congestion. Denies any chest pain or palpitations. She is maintaining good O2 saturations in the 90s on room air. Chest x-ray reveals borderline heart size and evidence of COPD. Trace effusions. Improved aeration of the right lung base. White count 8.5. Hemoglobin 15.3. Platelets 165. Sodium 134. Potassium 4.4. Bicarb 27. BUN 39. Creatinine 1.48. Glucose 129. She remains on flecainide. Remains on oral diuretics. Anticoagulated with Xarelto. Remains in sinus rhythm. The patient is seen today September 14, 2023 in follow-up on the selective care unit. She is currently resting comfortably in bed. Awake and alert in no acute distress. She denies any worsening shortness of breath, cough or congestion. No chest pain or palpitations. She remains on flecainide. Anticoagulated with Xarelto. Normal saline at 50 MLS per hour. White count 6.5. Hemoglobin 13.9. Platelets 136. Sodium 134. Potassium 4.3. Bicarb 28. BUN 33. Creatinine 1.10. Urinalysis clear Objective - Vital Signs Vital signs: Vital Signs Temp 98.3 F 09/14/23 11:23 Pulse 56 L 09/14/23 11:23 Resp 16 09/14/23 11:23 BP 105/62 09/14/23 11:23 Pulse Ox 92 L 09/14/23 11:23 FiO2 Intake & Output 09/13/23 09/14/23 09/14/23 18:59 06:59 18:59 Intake Total 720 356 Balance 720 356 Weight 89.811 kg Intake: Oral 720 356 Other: Voiding Method Toilet Toilet Toilet # Voids 3 2 - Exam GENERAL EXAM: Alert, pleasant 78-year-old female, resting comfortably in bed, on room air, in no apparent distress. HEAD: Normocephalic. EYES: Normal reaction of pupils, equal size. NOSE: Clear with pink turbinates. THROAT: No erythema or exudates. NECK: No masses, no JVD. CHEST: No chest wall deformity. LUNGS: Equal air entry with faint crackles in the posterior bases. CVS: S1 and S2 normal with no audible murmur, regular rhythm. ABDOMEN: No hepatosplenomegaly, normal bowel sounds, no guarding or rigidity. SPINE: No scoliosis or deformity SKIN: No rashes CENTRAL NERVOUS SYSTEM: No focal deficits, tone is normal in all 4 extremities. EXTREMITIES: There is 1+ peripheral edema. No clubbing, no cyanosis. Peripheral pulses are intact. - Labs CBC & Chem 7: 09/14/23 10:49 09/14/23 10:49 Labs: Abnormal Lab Results - Last 24 Hours (Table) 09/14/23 09/14/23 Range/Units 10:49 10:49 MCV 101.0 H (80.0-100.0) fL Plt Count 136 L (150-450) k/uL Lymphocytes # 0.3 L (1.0-4.8) k/uL Sodium 134 L (137-145) mmol/L BUN 33 H (7-17) mg/dL Creatinine 1.10 H (0.52-1.04) mg/dL Glucose 102 H (74-99) mg/dL AST 48 H (14-36) U/L Total Protein 5.7 L (6.3-8.2) g/dL Albumin 3.1 L (3.5-5.0) g/dL Assessment and Plan Assessment: Chest pain and palpitations secondary to atrial flutter. JORGE/cardioversion 09/12/2023, remains in sinus rhythm History of atrial fibrillation/flutter anticoagulated with Xarelto, previous ab lations x 2 Dyspnea secondary to above recovered Acute kidney injury suspect secondary to hypotension, improving Lifelong non-smoker History of mild intermittent chronic bronchial asthma Hypertension Hyperlipidemia Hypothyroidism History of brain tumor, post surgical resection Plan: The patient was seen and evaluated Labs and medications reviewed Currently stable and on room air Remains in sinus rhythm Anticoagulated with Xarelto Kidney function improving Cleared for discharge from the pulmonary standpoint I have personally seen and examined the patient, performed the documentation and the assessment and plan as written. Number of minutes spent on the visit: 10.
== END 2023-09-14 15:34 | disposition home or self-care (01) | DRG 308 ==
LOC: EC 11:12 → 3SCARD 14:39 → OBSVTOIN 09-12 10:18 → 3SCARD 09-12 14:59
PROVIDERS: ADMIT Internal Medicine; ATTEND Internal Medicine
PROC: B24BZZ4 Ultrasonography of Heart with Aorta, Transesophageal (ICD-10-PCS; principal; 2023-09-12 07:30)
PROC: 5A2204Z Restoration of Cardiac Rhythm, Single (ICD-10-PCS; principal; 2023-09-12 07:30)
DX: I48.0 Paroxysmal atrial fibrillation (principal); I50.33 Acute on chronic diastolic (congestive) heart failure; E27.40 Unspecified adrenocortical insufficiency; N17.9 Acute kidney failure, unspecified; I11.0 Hypertensive heart disease with heart failure; I95.9 Hypotension, unspecified; I73.9 Peripheral vascular disease, unspecified; I48.3 Typical atrial flutter; G93.89 Other specified disorders of brain; E03.9 Hypothyroidism, unspecified; G25.81 Restless legs syndrome; J44.89 Other specified chronic obstructive pulmonary disease; J45.20 Mild intermittent asthma, uncomplicated; E78.5 Hyperlipidemia, unspecified; M81.0 Age-related osteoporosis without current pathological fracture; F41.9 Anxiety disorder, unspecified; G47.33 Obstructive sleep apnea (adult) (pediatric); M19.90 Unspecified osteoarthritis, unspecified site; M54.30 Sciatica, unspecified side; Z79.52 Long term (current) use of systemic steroids; Z79.01 Long term (current) use of anticoagulants; Z79.890 Hormone replacement therapy; Z79.899 Other long term (current) drug therapy; Z86.011 Personal history of benign neoplasm of the brain; Z86.19 Personal history of other infectious and parasitic diseases; Z88.1 Allergy status to other antibiotic agents
CPT/HCPCS: 36415; 70450; 71046; 80053; 81003; 82140; 83735; 83880; 84439; 84443; 84484; 85025; 85379; 85610; 85730; 87040; 92960; 93005; 93308; 93312; 93320; 93325; 94640; 94760; 96374; 96376; 99291

== ENCOUNTER → 2023-09-18 | Outpatient (CLI) | payer MEDICARE ==
[2023-09-18 16:33] LABS: T4, Free (Free Thyroxine) 1.61 ng/dL (0.80-1.80)
[2023-09-18 22:04] LABS: ACTH <1.50 pg/mL (0.00-45.99)
== END | disposition home or self-care (01) ==
LOC: LABWHC1 09:48
PROVIDERS: ATTEND Internal Medicine Endocrinology, Diabetes & Metabolism
DX: E03.8 Other specified hypothyroidism (principal); E27.49 Other adrenocortical insufficiency
CPT/HCPCS: 36415; 82024; 82533; 84439; 84443; 84480

== ENCOUNTER 2023-10-06 11:56 | Day surgery (SDC) | payer MEDICARE ==
[2023-10-03 16:01] VITALS: BMI 31.6
[2023-10-06] MEDS: SODIUM CHLORIDE 0.9% 1,000 ML IV ONE (11:50)
[~2023-10-06 11:56] MED LIST changes: +ALPRAZolam 0.25 MG TAB PO PRN; +ALPRAZolam 0.5 MG TAB PO PRN; -LACTATED RINGERS 1,000 ML IV SCH; +NITROGLYCERIN SL TABS 0.4 MG TAB SUBLINGUAL PRN
[2023-10-06] MEDS: SODIUM CHLORIDE 0.9% 1,000 ML in EMPTY BAG 1 BAG IV SCH (12:38)
[2023-10-06] MEDS: ASPIRIN 325 MG TAB PO STA (12:38)
[2023-10-06 12:56] VITALS: RESP 16; TEMP 98.1
[2023-10-06] MEDS ORDERED: fentaNYL (PF) 50 MCG/ML 2 ML AMP ONE (13:21)
[2023-10-06] MEDS ORDERED: VERAPAMIL 2.5 MG/ML 2 ML AMP ONE (13:22)
[2023-10-06] MEDS ORDERED: HEPARIN SODIUM 1,000 UN/ML (10ML VL) ONE (13:33)
[2023-10-06] MEDS: LIDOCAINE 2% (PF) 20 MG/ML 5 ML VIAL SQ ONE (13:43)
[2023-10-06] MEDS: VERAPAMIL SYRINGE (5 MG/10 ML) INTRAARTER ONE (13:44)
[2023-10-06] MEDS: HEPARIN SODIUM 1,000 UN/ML (10ML VL) IVP ONE (13:45)
[2023-10-06] MEDS: fentaNYL (PF) 50 MCG/1 ML VIAL IVP ONE (13:45)
[2023-10-06] MEDS: MIDAZOLAM 2 MG/2 ML VIAL IVP ONE (13:45)
[2023-10-06] MEDS: IOPAMIDOL-370 125ML BTL INJ ONE (13:53)
[2023-10-06 17:14] VITALS: BP 128/62; PULSE 51
--- NOTE | 2023-10-06 22:39 | P.CARDCATH ---
Description of Procedure: PROCEDURES PERFORMED: Left heart catheterization, bilateral coronary angiography, ultrasound guided arterial access INDICATION: Abnormal stress test CONSENT:I have discussed the risks, benefits and alternative therapies for the above-mentioned procedure and for both sedation/analgesia as well as necessary blood product administration, if indicated, as they pertain to this patient. The patient has indicated understanding and acceptance of the risks and procedures discussed. PROCEDURE: After the risks, benefits and alternatives of the above mentioned procedure explained in detail with the patient, informed consent was obtained. Patient was taken to the catheterization lab and prepped and draped in usual fashion. Ultrasound guidance was used to assess for arterial access. 1% lidocaine was used to anesthetize the right radial artery. A 6-Cameroonian sheath was placed in the right radial artery using modified Seldinger technique and ultrasound guidance. Left coronary angiography was performed with a 5-Cameroonian JL 3.5 catheter and right coronary angiography was performed with a 5-Cameroonian FR5 catheter in various views. A 5-Cameroonian FR5 catheter was inserted into the left ventricle and pressure measurements were obtained. The right radial sheath was removed and a TR band was placed with hemostasis achieved. The patient t olerated the procedure well. Patient was transported back to the post catheterization holding area in stable condition. Conscious Sedation: Patient was monitored under the direct supervision of myself for conscious sedation using Versed and fentanyl for a total duration of 9 minutes HEMODYNAMICS: Ao: 141/71 LV: 140/7, LVEDP 19 SELECTIVE CORONARY ARTERIOGRAPHY: LEFT MAIN: The left main is a large caliber vessel which bifurcates into the LAD and circumflex. There is no significant stenosis. LEFT ANTERIOR DESCENDING CORONARY ARTERY: LAD is a large caliber vessel which wraps around to the apex. There is no significant stenosis. LEFT CIRCUMFLEX CORONARY ARTERY: Left circumflex is a moderate caliber vessel without significant stenosis. RIGHT CORONARY ARTERY: The right coronary artery is a large caliber vessel which gives off a PDA and PLV branch and is the dominant vessel. There is no significant stenosis. FINAL IMPRESSION: 1. Normal coronary arteries as described above. 2. Mildly elevated left sided filling pressures PLAN: 1. Aggressive risk factor modification per most recent ACC/AHA guidelines. 2. Follow-up in the office in 1-2 weeks.
== END 2023-10-06 17:35 ==
LOC: CATHCVL 11:56
PROVIDERS: ATTEND Internal Medicine
DX: I48.0 Paroxysmal atrial fibrillation (principal); I48.92 Unspecified atrial flutter; I49.5 Sick sinus syndrome; Z79.899 Other long term (current) drug therapy; Z79.01 Long term (current) use of anticoagulants
CPT/HCPCS: 93458; 76937; 84439; 84443; 99152; C1769; C1894; J2250; J1644; Q9967; J2001; J3010

== ENCOUNTER → 2024-03-18 | Outpatient (CLI) | payer MEDICARE ==
[2024-03-18 16:16] LABS: ALT 22 U/L (8-44); AST 31 U/L (13-35); Albumin/Globulin Ratio 1.54 Ratio (1.60-3.17); Alkaline Phosphatase 103 U/L (41-126); BUN/Creat Ratio 29.36 Ratio (12.00-20.00); Blood Urea Nitrogen 32.3 mg/dL (9.0-27.0); Calcium 9.2 mg/dL (8.7-10.3); Carbon Dioxide 25.4 mmol/L (21.6-31.8); Chloride 105 mmol/L (96-109); Globulin 2.6 g/dL (1.6-3.3); Glucose 113 mg/dL (70-110); Potassium 4.6 mmol/L (3.5-5.5); Sodium 142 mmol/L (135-145); T4, Free (Free Thyroxine) 1.31 ng/dL (0.80-1.80); Total Bilirubin 0.4 mg/dL (0.3-1.2); Total Protein 6.6 g/dL (6.2-8.2)
[2024-03-19 23:40] LABS: ACTH <1.50 pg/mL (0.00-45.99)
== END | disposition home or self-care (01) ==
LOC: LABWHC1 11:05
PROVIDERS: ATTEND Internal Medicine Endocrinology, Diabetes & Metabolism
DX: E23.0 Hypopituitarism (principal)
CPT/HCPCS: 36415; 80053; 82024; 82533; 84439; 84443; 84480

== ENCOUNTER → 2024-05-09 | Outpatient (CLI) | payer MEDICARE ==
--- NOTE | 2024-05-12 04:05 | MM ---
Reason for Exam: Screening (asymptomatic). Last screening mammogram was performed 12 month(s) ago. Patient History: Menarche at age 14. Patient has no children. Postmenopausal. Estrogen for 5 years from age 45 until age 50. Maternal aunt had breast cancer, age 65. Risk Values: Alecia 5 year model risk: 1.7%. NCI Lifetime model risk: 3.1%. Prior Study Comparison: 03/14/2022 Bilateral MG 3D screening mammo w/cad, [facility]. 03/22/2022 Right MG 3D work up w/cad RT, [facility]. 05/08/2023 Bilateral MG 3D screening mammo w/cad, [facility]. Tissue Density: The breasts are heterogeneously dense, which may obscure small masses. Findings: Analyzed By CAD. The pattern is symmetrical. No significant interval changes. No suspicious groups of microcalcifications, spiculated or lobular masses, architectural distortion or other secondary signs of malignancy are mammographically apparent. Overall Assessment: Benign, BI-RAD 2 Management: Screening Mammogram of both breasts in 1 year. A negative mammogram report should not preclude additional follow up of suspicious palpable abnormalities. Patient should continue monthly self breast exam. A clinical breast exam by your physician is recommended on an annual basis and results should be correlated with mammographic findings. Note on Alecia scores and lifetime risk: 1. A Alecia score greater than 3% is considered moderate risk. If this is the case, consider specialist referral to assess eligibility for a risk reducing agent. 2. If overall lifetime risk for the development of breast cancer is 20% or higher, the patient may qualify for future screening with alternating mammogram and breast MRI. [facility], , 05/12/2024 4:02 AM. Electronically signed and approved by: Mikhail Glez D.O. Radiologis
== END | disposition home or self-care (01) ==
LOC: RADMAMWWP 12:58
PROVIDERS: ATTEND Family Medicine
DX: Z12.31 Encounter for screening mammogram for malignant neoplasm of breast (principal); Z78.0 Asymptomatic menopausal state; Z80.3 Family history of malignant neoplasm of breast; R92.333 Mammographic heterogeneous density, bilateral breasts
CPT/HCPCS: 77063; 77067